=== PATIENT | male | born 1940 | race Caucasian/White ===

== ENCOUNTER 2017-09-21 08:42 | Emergency (ER) | payer MEDICARE, MEDICAID ==
[~2017-09-21] VITALS: Ht 177.8 cm; Wt 57.0 kg
[2017-09-21 10:38] VITALS: BP 127/78
== END 2017-09-21 11:18 | disposition home or self-care (01) ==
LOC: ED 10:13
DX: S92.354A Nondisplaced fracture of fifth metatarsal bone, right foot, initial encounter for closed fracture (principal); F17.200 Nicotine dependence, unspecified, uncomplicated; X58.XXXA Exposure to other specified factors, initial encounter; Y93.01 Activity, walking, marching and hiking; Y92.009 Unspecified place in unspecified non-institutional (private) residence as the place of occurrence of the external cause; Y99.8 Other external cause status
CPT/HCPCS: 99284

== ENCOUNTER 2018-03-01 08:48 | Inpatient (IN) | payer MEDICARE, MEDICAID ==
[~2018-03-01] VITALS: Ht 177.8 cm; Wt 53.1 kg
[2018-03-01] MEDS ORDERED: ASPIRIN 81 MG TABLET CHEW ONE (09:47)
[2018-03-01] MEDS ORDERED: HYDR1TAB12 PO (09:59)
[2018-03-01] MEDS ORDERED: MUSCLE RELAXER (09:59)
[2018-03-01] MEDS ORDERED: TRAZ50TA18 PO (09:59)
[2018-03-01 10:00] LABS: BASOPHILS % (AUTO) 0 % (0-1); EOSINOPHILS # (AUTO) 0.11 x10^3/uL (0-0.4); EOSINOPHILS % (AUTO) 2 % (1-7); LYMPHOCYTES # (AUTO) 0.73 x10^3/uL (1-3.4); LYMPHOCYTES % (AUTO) 12 % (22-44); MD NO; MEAN CORPUSCULAR HEMOGLOBIN 34.7 pg (27.5-34.5); MEAN PLATELET VOLUME 8.8 fL (7.4-10.4); MONOCYTES # (AUTO) 0.89 x10^3/uL (0.2-0.8); MONOCYTES % (AUTO) 15 % (2-9); NEUTROPHILS # (AUTO) 4.21 x10^3/uL (1.8-6.8); NEUTROPHILS % (AUTO) 71 % (42-75); PLATELET COUNT 204 x10^3/uL (130-400); RED BLOOD COUNT 4.13 x10^6/uL (4.38-5.82); RED CELL DISTRIBUTION WIDTH 14.1 % (9.4-14.8)
[2018-03-01] MEDS ORDERED: ASPIRIN 81 MG TABLET CHEW PO ONE (10:00)
[2018-03-01 10:08] LABS: ALBUMIN 3.1 g/dL (3.4-5.0); ANION GAP 4 mmol/L (5-15); CALCIUM 8.6 mg/dL (8.5-10.1); CHLORIDE 99 mmol/L (98-107)
[2018-03-01 10:14] LABS: ALANINE AMINOTRANSFERASE 26 U/L (12-78); ALKALINE PHOSPHATASE 101 U/L (45-117); BILIRUBIN,TOTAL 0.8 mg/dL (0.2-1.0); CREATININE 0.61 mg/dL (0.7-1.3); TOTAL PROTEIN 6.8 g/dL (6.4-8.2); TROPONIN I < 0.015 ng/mL (0.000-0.045)
[2018-03-01] MEDS ORDERED: ENOXAPARIN 60 MG/0.6 ML ONE (11:47)
[2018-03-01] MEDS ORDERED: ENOXAPARIN 60 MG/0.6 ML SQ ONE (12:00)
[2018-03-01] MEDS ORDERED: DILTIAZEM 5 MG/ML, 5ML IVPush ONE (12:30)
[2018-03-01] MEDS: ENOXAPARIN 60 MG/0.6 ML SQ SCH (12:30)
[2018-03-01] MEDS ORDERED: ONDANSETRON 2MG/ML, 2ML IVPB PRN (12:30)
[2018-03-01] MEDS ORDERED: CEFTRIAXONE PMX 1GM/50ML 50 ML IV SCH (12:30)
[2018-03-01] MEDS ORDERED: METHOCARBAMOL 500 MG TABLET PO PRN (12:30)
[2018-03-01] MEDS ORDERED: PHARMACY MAY ADJ FOR RENAL FX MC PRN (12:30)
[2018-03-01] MEDS ORDERED: HYDROcodone/APAP 5/325 TABLET PO PRN (12:30)
[2018-03-01] MEDS ORDERED: TRAZODONE 50MG TABLET PO PRN (12:30)
[2018-03-01] MEDS ORDERED: ACETAMINOPHEN 325 MG TABLET PO PRN (12:30)
[2018-03-01] MEDS ORDERED: FUROSEMIDE 20 MG/2 ML IV ONE (12:30)
[2018-03-01] MEDS ORDERED: DOCUSATE 100 MG CAPSULE PO PRN (12:30)
[2018-03-01] MEDS: GUAIFENESIN 200 MG TABLET PO SCH ×4 (12:30→21:00)
[2018-03-01 13:15] LABS: FOLATE LEVEL > 20.0 ng/mL (3.1-17.5)
[2018-03-01] MEDS ORDERED: MAGNESIUM SULFATE 4 GM in STERILE WATER 42 ML IV ONE ×2 (13:30)
[2018-03-01 13:48] VITALS: BP 138/79
[2018-03-01 14:49] LABS: AMPHETAMINE SCREEN, URINE Negative (Negative); BARBITURATE SCREEN, URINE Negative (Negative); BENZODIAZEPINE SCREEN, URINE Negative (Negative); CANNABINOID SCREEN, URINE Negative (Negative); COCAINE SCREEN, URINE Negative (Negative); METHADONE SCREEN, URINE Negative (Negative); OPIATE SCREEN, URINE Negative (Negative)
[2018-03-01] MEDS ORDERED: ALBUTEROL/IPRATROPIUM 2.5MG/0.5MG, 3 ML NPPB PRN (15:00)
[2018-03-01] MEDS ORDERED: FUROSEMIDE 20 MG/2 ML ONE (18:12)
[2018-03-01] MEDS: DOXYCYCLINE 100 MG in DEXTROSE 5% 250 ML IV SCH (18:23)
[2018-03-01 19:01] VITALS: BP 103/62
[2018-03-02] MEDS: ENOXAPARIN 60 MG/0.6 ML SQ SCH ×2 (00:17→12:30)
[2018-03-02 01:45] VITALS: BP 115/62
[2018-03-02 05:19] LABS: ALANINE AMINOTRANSFERASE 24 U/L (12-78); ALBUMIN 2.9 g/dL (3.4-5.0); ANION GAP 3 mmol/L (5-15); CALCIUM 8.6 mg/dL (8.5-10.1); CHLORIDE 99 mmol/L (98-107)
[2018-03-02 05:24] LABS: ALKALINE PHOSPHATASE 102 U/L (45-117); BILIRUBIN,TOTAL 0.5 mg/dL (0.2-1.0); TOTAL PROTEIN 6.5 g/dL (6.4-8.2)
[2018-03-02 05:27] LABS: BASOPHILS # (AUTO) 0.02 x10^3/uL (0-0.1); BASOPHILS % (AUTO) 0 % (0-1); EOSINOPHILS # (AUTO) 0.01 x10^3/uL (0-0.4); EOSINOPHILS % (AUTO) 0 % (1-7); LYMPHOCYTES # (AUTO) 0.85 x10^3/uL (1-3.4); LYMPHOCYTES % (AUTO) 9 % (22-44); MD NO; MEAN CORPUSCULAR HEMOGLOBIN 34.9 pg (27.5-34.5); MEAN CORPUSCULAR HGB CONC 33.4 g/dL (33.2-36.2); MEAN CORPUSCULAR VOLUME 104.5 fL (81-97); MEAN PLATELET VOLUME 9.1 fL (7.4-10.4); MONOCYTES # (AUTO) 1.27 x10^3/uL (0.2-0.8); MONOCYTES % (AUTO) 13 % (2-9); NEUTROPHILS # (AUTO) 7.59 x10^3/uL (1.8-6.8); NEUTROPHILS % (AUTO) 78 % (42-75); PLATELET COUNT 214 x10^3/uL (130-400); RED BLOOD COUNT 4.06 x10^6/uL (4.38-5.82); RED CELL DISTRIBUTION WIDTH 14.2 % (9.4-14.8)
[2018-03-02] MEDS: GUAIFENESIN 200 MG TABLET PO SCH ×2 (06:01→12:16)
[2018-03-02] MEDS: DOXYCYCLINE 100 MG in DEXTROSE 5% 250 ML IV SCH (06:01)
[2018-03-02 07:55] VITALS: BP 122/60
[2018-03-02] MEDS ORDERED: METH4TAB2 PO (09:57)
[2018-03-02] MEDS ORDERED: CEFD300C37 PO (09:57)
[2018-03-02] MEDS ORDERED: DOXY100T PO (09:57)
[2018-03-02] MEDS ORDERED: ALBU6.7H INH (09:57)
[2018-03-02] MEDS ORDERED: APIX5TAB PO (09:57)
[2018-03-02] MEDS ORDERED: PNEUMOCOCCAL 23 VACCINE IM-VACC ONE (13:00)
== END 2018-03-02 13:50 | disposition home or self-care (01) | DRG 291 ==
LOC: ED 10:26 → EDIP 11:24 → 4WST 12:26 → DCLOUNGE 03-02 13:31
PROVIDERS: ADMIT Internal Medicine; ATTEND Internal Medicine
DX: I50.33 Acute on chronic diastolic (congestive) heart failure (principal); J18.9 Pneumonia, unspecified organism; J44.1 Chronic obstructive pulmonary disease with (acute) exacerbation; D68.69 Other thrombophilia; E44.1 Mild protein-calorie malnutrition; E87.1 Hypo-osmolality and hyponatremia; J98.11 Atelectasis; J44.0 Chronic obstructive pulmonary disease with (acute) lower respiratory infection; I48.91 Unspecified atrial fibrillation; F17.210 Nicotine dependence, cigarettes, uncomplicated; D75.89 Other specified diseases of blood and blood-forming organs; F15.10 Other stimulant abuse, uncomplicated; I07.1 Rheumatic tricuspid insufficiency; Z79.82 Long term (current) use of aspirin; M19.90 Unspecified osteoarthritis, unspecified site; G89.29 Other chronic pain; M54.9 Dorsalgia, unspecified; Z79.899 Other long term (current) drug therapy
CPT/HCPCS: 36415; 71045; 80053; 80307; 82607; 82746; 83735; 83880; 84145; 84443; 84484; 85025; 87040; 87070; 87184; 87205; 90732; 93005; 93306; 96372; 99285; J0696; J1650; J3475; J7060; J1940; J7512

== ENCOUNTER 2018-03-17 19:37 | Inpatient (IN) | payer MEDICARE, MEDICAID ==
[~2018-03-17] VITALS: Ht 177.8 cm; Wt 52.3 kg
[~2018-03-17 19:37] MED LIST: ALBU6.7H INH; APIX5TAB PO; CEFD300C37 PO; DOXY100T PO; HYDR1TAB12 PO; METH4TAB2 PO; MUSCLE RELAXER; TRAZ50TA18 PO
[2018-03-17 20:24] LABS: MEAN CORPUSCULAR HEMOGLOBIN 35.3 pg (27.5-34.5); MEAN CORPUSCULAR HGB CONC 33.6 g/dL (33.2-36.2); MEAN CORPUSCULAR VOLUME 105.2 fL (81-97); MEAN PLATELET VOLUME 8.5 fL (7.4-10.4); PLATELET COUNT 248 x10^3/uL (130-400); RED BLOOD COUNT 3.94 x10^6/uL (4.38-5.82); RED CELL DISTRIBUTION WIDTH 14.4 % (9.4-14.8)
[2018-03-17] MEDS ORDERED: FUROSEMIDE 40 MG/4 ML IV ONE (20:30)
[2018-03-17 20:36] LABS: ALANINE AMINOTRANSFERASE 25 U/L (12-78); ALBUMIN 2.8 g/dL (3.4-5.0); ANION GAP 6 mmol/L (5-15); CALCIUM 8.6 mg/dL (8.5-10.1); CHLORIDE 98 mmol/L (98-107); CREATININE 0.82 mg/dL (0.7-1.3)
[2018-03-17 20:40] LABS: ALKALINE PHOSPHATASE 114 U/L (45-117); BILIRUBIN,TOTAL 0.9 mg/dL (0.2-1.0); TOTAL PROTEIN 6.7 g/dL (6.4-8.2); TROPONIN I < 0.015 ng/mL (0.000-0.045)
[2018-03-17 20:47] LABS: MD YES
[2018-03-17 20:51] LABS: EOS#(MANUAL) 0.08 x10^3/uL (0.0-0.4); EOS% (MANUAL) 1 % (1-7); LYMPH#(MANUAL) 0.34 x10^3/uL (1-3.4); LYMPHS% (MANUAL) 4 % (22-44); MONOS#(MANUAL) 1.43 x10^3/uL (0.3-2.7); MONOS% (MANUAL) 17 % (2-9); SEG#(MANUAL) 6.55 x10^3/uL (1.8-6.8); SEGS% (MANUAL) 78 % (42-75)
[2018-03-17 20:52] LABS: ANISOCYTOSIS 1+
[2018-03-17 20:54] LABS: <PLATELET ESTIMATE> ADEQUATE; <PLT MORPHOLOGY> NORMAL PLT MORPH
[2018-03-17] MEDS ORDERED: FUROSEMIDE 20 MG/2 ML ONE (20:55)
[2018-03-17] MEDS ORDERED: FUROSEMIDE 20 MG/2 ML IV ONE (21:00)
[2018-03-17] MEDS ORDERED: hydrALAzine 20 MG/ML, 1ML IVPush PRN (22:00)
[2018-03-17] MEDS ORDERED: ONDANSETRON 2MG/ML, 2ML IVPush PRN (22:00)
[2018-03-17] MEDS ORDERED: ALBUTEROL SULFATE 2.5 MG/3 ML HHN PRN (22:00)
[2018-03-17] MEDS ORDERED: ACETAMINOPHEN 325 MG TABLET PO PRN (22:00)
[2018-03-17 22:37] VITALS: BP 156/77
[2018-03-18 02:55] VITALS: BP 116/64
[2018-03-18 05:11] LABS: MEAN CORPUSCULAR HEMOGLOBIN 34.9 pg (27.5-34.5); MEAN CORPUSCULAR HGB CONC 33.2 g/dL (33.2-36.2); MEAN CORPUSCULAR VOLUME 105.2 fL (81-97); MEAN PLATELET VOLUME 8.6 fL (7.4-10.4); PLATELET COUNT 245 x10^3/uL (130-400); RED CELL DISTRIBUTION WIDTH 14.3 % (9.4-14.8)
[2018-03-18 05:24] LABS: ALANINE AMINOTRANSFERASE 24 U/L (12-78); ALBUMIN 2.9 g/dL (3.4-5.0); ANION GAP 5 mmol/L (5-15); CHLORIDE 96 mmol/L (98-107)
[2018-03-18 05:26] LABS: ALKALINE PHOSPHATASE 111 U/L (45-117); BILIRUBIN,TOTAL 1.1 mg/dL (0.2-1.0); TOTAL PROTEIN 6.6 g/dL (6.4-8.2)
[2018-03-18 05:52] LABS: MD YES
[2018-03-18 05:54] LABS: LYMPH#(MANUAL) 0.74 x10^3/uL (1-3.4); LYMPHS% (MANUAL) 8 % (22-44); MONOS#(MANUAL) 1.12 x10^3/uL (0.3-2.7); MONOS% (MANUAL) 12 % (2-9); SEG#(MANUAL) 7.44 x10^3/uL (1.8-6.8); SEGS% (MANUAL) 80 % (42-75)
[2018-03-18 05:55] LABS: <PLATELET ESTIMATE> ADEQUATE; <PLT MORPHOLOGY> NORMAL PLT MORPH; ANISOCYTOSIS 1+
[2018-03-18 08:20] VITALS: BP 113/67
[2018-03-18] MEDS ORDERED: APIXABAN 5 MG TABLET PO SCH (09:00)
[2018-03-18] MEDS ORDERED: HYDROcodone/APAP 5/325 TABLET PO SCH (09:00)
[2018-03-18] MEDS ORDERED: SODIUM CHLORIDE FLUSH 10ML SYR IVF SCH (09:00)
[2018-03-18] MEDS ORDERED: TRAZODONE 50MG TABLET PO SCH (09:00)
[2018-03-18] MEDS ORDERED: POTA10TA11 PO (09:49)
[2018-03-18] MEDS ORDERED: FURO-93 PO (09:49)
[2018-03-18] MEDS ORDERED: POTASSIUM CHLORIDE 20 MEQ TAB.ER.PRT PO ONE (10:00)
[2018-03-18] MEDS ORDERED: MAGNESIUM SULFATE PMX 2GM/50ML 50 ML IV ONE (10:00)
[2018-03-18] MEDS ORDERED: FUROSEMIDE 20 MG/2 ML IV ONE (10:00)
== END 2018-03-18 12:58 | disposition home or self-care (01) | DRG 292 ==
LOC: ED 20:20 → SUATTDRO 21:28 → EDIP 21:43 → 4EST 22:23 → DCLOUNGE 03-18 12:44
PROVIDERS: ADMIT Hospitalist; ATTEND Hospitalist
DX: I50.33 Acute on chronic diastolic (congestive) heart failure (principal); D68.69 Other thrombophilia; E44.1 Mild protein-calorie malnutrition; J98.11 Atelectasis; Z68.1 Body mass index [BMI] 19.9 or less, adult; I48.2 Chronic atrial fibrillation; E87.6 Hypokalemia; D75.89 Other specified diseases of blood and blood-forming organs; E83.42 Hypomagnesemia; F17.210 Nicotine dependence, cigarettes, uncomplicated; I07.1 Rheumatic tricuspid insufficiency; I27.20 Pulmonary hypertension, unspecified; J44.9 Chronic obstructive pulmonary disease, unspecified; Z87.01 Personal history of pneumonia (recurrent); Z79.01 Long term (current) use of anticoagulants; F15.11 Other stimulant abuse, in remission; F14.11 Cocaine abuse, in remission
CPT/HCPCS: 36415; 71045; 80053; 83735; 83880; 84100; 84484; 85025; 93005; 99285; J1940

== ENCOUNTER 2018-04-03 12:26 | Emergency (ER) | payer MEDICARE, MEDICAID ==
[~2018-04-03] VITALS: Ht 177.8 cm; Wt 53.0 kg
[~2018-04-03 12:26] MED LIST changes: +FURO-93 PO; +POTA10TA11 PO
[2018-04-03 12:33] VITALS: BP 130/76
== END 2018-04-03 13:08 | disposition home or self-care (01) ==
LOC: ED 12:55
DX: J44.9 Chronic obstructive pulmonary disease, unspecified (principal); I11.0 Hypertensive heart disease with heart failure; I50.9 Heart failure, unspecified; Z76.0 Encounter for issue of repeat prescription
CPT/HCPCS: 99283

== ENCOUNTER 2018-04-15 21:37 | Inpatient (IN) | payer MEDICARE, MEDICAID ==
[~2018-04-15] VITALS: Ht 177.8 cm; Wt 51.8 kg
[~2018-04-15 21:37] MED LIST changes: +TRAZ-136 PO; -TRAZ50TA18 PO
[2018-04-15 22:25] LABS: BASOPHILS # (AUTO) 0.02 x10^3/uL (0-0.1); BASOPHILS % (AUTO) 0 % (0-1); EOSINOPHILS # (AUTO) 0.06 x10^3/uL (0-0.4); EOSINOPHILS % (AUTO) 1 % (1-7); LYMPHOCYTES # (AUTO) 0.63 x10^3/uL (1-3.4); LYMPHOCYTES % (AUTO) 9 % (22-44); MD NO; MEAN CORPUSCULAR HEMOGLOBIN 34.8 pg (27.5-34.5); MEAN CORPUSCULAR HGB CONC 33.7 g/dL (33.2-36.2); MEAN CORPUSCULAR VOLUME 103.3 fL (81-97); MEAN PLATELET VOLUME 8.6 fL (7.4-10.4); MONOCYTES % (AUTO) 15 % (2-9); NEUTROPHILS # (AUTO) 4.99 x10^3/uL (1.8-6.8); NEUTROPHILS % (AUTO) 74 % (42-75); PLATELET COUNT 228 x10^3/uL (130-400); RED BLOOD COUNT 3.53 x10^6/uL (4.38-5.82); RED CELL DISTRIBUTION WIDTH 14.1 % (9.4-14.8)
[2018-04-15 22:34] LABS: ALBUMIN 2.4 g/dL (3.4-5.0); ANION GAP 4 mmol/L (5-15); CALCIUM 8.6 mg/dL (8.5-10.1); CHLORIDE 97 mmol/L (98-107)
[2018-04-15 22:39] LABS: CREATININE 0.77 mg/dL (0.7-1.3); TROPONIN I < 0.015 ng/mL (0.000-0.045)
[2018-04-16] MEDS ORDERED: FUROSEMIDE 40 MG/4 ML IV ONE
[2018-04-16] MEDS ORDERED: FUROSEMIDE 40 MG/4 ML ONE (00:01)
[2018-04-16] MEDS ORDERED: POLYETHYLENE GLYCOL 17 GM PACKET PO PRN (00:30)
[2018-04-16] MEDS ORDERED: ACETAMINOPHEN 325 MG TABLET PO PRN (00:30)
[2018-04-16] MEDS ORDERED: ONDANSETRON 2MG/ML, 2ML IVPush PRN ×2 (00:30)
[2018-04-16] MEDS ORDERED: ALBUTEROL SULFATE 2.5 MG/3 ML IPPB PRN (00:30)
[2018-04-16] MEDS ORDERED: BISACODYL 10 MG SUPP PR PRN (00:30)
[2018-04-16 00:50] VITALS: BP 144/81
[2018-04-16] MEDS: NICOTINE 21 MG/24 HR PATCH.TD24 TD SCH ×2 (01:28→20:10)
[2018-04-16] MEDS: ALBUTEROL SULFATE 2.5 MG/3 ML NPPB PRN (03:05)
[2018-04-16 05:51] LABS: BASOPHILS # (AUTO) 0.01 x10^3/uL (0-0.1); BASOPHILS % (AUTO) 0 % (0-1); EOSINOPHILS # (AUTO) 0.05 x10^3/uL (0-0.4); EOSINOPHILS % (AUTO) 1 % (1-7); LYMPHOCYTES # (AUTO) 0.66 x10^3/uL (1-3.4); LYMPHOCYTES % (AUTO) 9 % (22-44); MD NO; MEAN CORPUSCULAR HEMOGLOBIN 34.8 pg (27.5-34.5); MEAN CORPUSCULAR HGB CONC 33.5 g/dL (33.2-36.2); MEAN CORPUSCULAR VOLUME 103.9 fL (81-97); MEAN PLATELET VOLUME 9.1 fL (7.4-10.4); MONOCYTES # (AUTO) 1.12 x10^3/uL (0.2-0.8); MONOCYTES % (AUTO) 16 % (2-9); NEUTROPHILS # (AUTO) 5.34 x10^3/uL (1.8-6.8); NEUTROPHILS % (AUTO) 74 % (42-75); PLATELET COUNT 254 x10^3/uL (130-400); RED BLOOD COUNT 3.88 x10^6/uL (4.38-5.82); RED CELL DISTRIBUTION WIDTH 14.1 % (9.4-14.8)
[2018-04-16] MEDS: HYDROcodone/APAP 5/325 TABLET PO PRN ×2 (05:58→14:36)
[2018-04-16 06:01] LABS: ALBUMIN 2.5 g/dL (3.4-5.0); ANION GAP 4 mmol/L (5-15); CALCIUM 8.7 mg/dL (8.5-10.1); CHLORIDE 97 mmol/L (98-107)
[2018-04-16 06:07] LABS: ALANINE AMINOTRANSFERASE 19 U/L (12-78); ALKALINE PHOSPHATASE 95 U/L (45-117); BILIRUBIN,TOTAL 0.7 mg/dL (0.2-1.0); CREATININE 0.81 mg/dL (0.7-1.3)
[2018-04-16] MEDS ORDERED: POTASSIUM CHLORIDE 20 MEQ TAB.ER.PRT PO ONE (07:30)
[2018-04-16 07:37] VITALS: BP 92/58
[2018-04-16] MEDS: TRAZODONE 50MG TABLET PO SCH (08:15)
[2018-04-16] MEDS: FUROSEMIDE 20 MG/2 ML IV SCH ×2 (08:15→17:49)
[2018-04-16] MEDS: SENNA/DOCUSATE TABLET PO SCH (08:15)
[2018-04-16] MEDS: APIXABAN 5 MG TABLET PO SCH ×2 (08:15→20:09)
[2018-04-16] MEDS: SODIUM CHLORIDE FLUSH 10ML SYR IVF SCH ×2 (08:16→20:09)
[2018-04-16] MEDS: LISINOPRIL 5 MG TABLET PO SCH (08:16)
[2018-04-16] MEDS ORDERED: POTASSIUM CHLORIDE 10 MEQ TABLET.ER PO SCH (09:00)
[2018-04-16 13:24] VITALS: BP 95/56
[2018-04-16] MEDS ORDERED: TIZANIDINE 4MG TABLET PO PRN (19:00)
[2018-04-16 19:58] VITALS: BP 99/64
[2018-04-17 01:00] VITALS: BP 97/58
[2018-04-17 05:17] LABS: BASOPHILS # (AUTO) 0.02 x10^3/uL (0-0.1); BASOPHILS % (AUTO) 0 % (0-1); EOSINOPHILS # (AUTO) 0.09 x10^3/uL (0-0.4); EOSINOPHILS % (AUTO) 1 % (1-7); LYMPHOCYTES # (AUTO) 0.55 x10^3/uL (1-3.4); LYMPHOCYTES % (AUTO) 7 % (22-44); MD NO; MEAN CORPUSCULAR HEMOGLOBIN 34.9 pg (27.5-34.5); MEAN CORPUSCULAR HGB CONC 33.3 g/dL (33.2-36.2); MEAN CORPUSCULAR VOLUME 104.8 fL (81-97); MEAN PLATELET VOLUME 8.8 fL (7.4-10.4); MONOCYTES # (AUTO) 0.81 x10^3/uL (0.2-0.8); MONOCYTES % (AUTO) 11 % (2-9); NEUTROPHILS # (AUTO) 5.87 x10^3/uL (1.8-6.8); NEUTROPHILS % (AUTO) 80 % (42-75); PLATELET COUNT 242 x10^3/uL (130-400); RED BLOOD COUNT 3.82 x10^6/uL (4.38-5.82); RED CELL DISTRIBUTION WIDTH 14.1 % (9.4-14.8)
[2018-04-17 05:25] LABS: CHLORIDE 97 mmol/L (98-107)
[2018-04-17 05:29] LABS: ALBUMIN 2.4 g/dL (3.4-5.0); ANION GAP 3 mmol/L (5-15); CALCIUM 8.8 mg/dL (8.5-10.1); CREATININE 0.57 mg/dL (0.7-1.3)
[2018-04-17 07:45] VITALS: BP 114/65
[2018-04-17 08:36] LABS: FOLATE LEVEL 13.9 ng/mL (3.1-17.5); THYROID STIMULATING HORMONE 1.24 mIU/L (0.358-3.740)
[2018-04-17] MEDS ORDERED: FUROSEMIDE 20 MG/2 ML IV SCH (09:00)
[2018-04-17] MEDS: SODIUM CHLORIDE FLUSH 10ML SYR IVF SCH ×2 (09:00→22:44)
[2018-04-17] MEDS ORDERED: CYANOCOBALAMIN 1,000 MCG/ML, 1ML IM ONE (11:00)
[2018-04-17] MEDS: APIXABAN 5 MG TABLET PO SCH ×2 (11:19→22:44)
[2018-04-17] MEDS: LISINOPRIL 5 MG TABLET PO SCH (11:20)
[2018-04-17] MEDS: DOXYCYCLINE 100MG TABLET PO SCH ×2 (11:20→22:44)
[2018-04-17] MEDS: SENNA/DOCUSATE TABLET PO SCH (11:20)
[2018-04-17] MEDS: CEFTRIAXONE 1,000 MG in SODIUM CHLORIDE 0.9% 50 ML IV SCH (11:39)
[2018-04-17 13:57] VITALS: BP 104/62
[2018-04-17 20:19] VITALS: BP 96/59
[2018-04-17] MEDS: TRAZODONE 50MG TABLET PO SCH (22:44)
[2018-04-17] MEDS: NICOTINE 21 MG/24 HR PATCH.TD24 TD SCH (22:50)
[2018-04-18 00:26] VITALS: BP_SYST 79; BP_SYST 94; BP_DIAS 53; BP_DIAS 61
[2018-04-18 00:37] VITALS: BP 93/49
[2018-04-18] MEDS: ALBUTEROL SULFATE 2.5 MG/3 ML NPPB PRN (01:26)
[2018-04-18 05:14] LABS: ALBUMIN 2.3 g/dL (3.4-5.0); ANION GAP 1 mmol/L (5-15); CALCIUM 8.7 mg/dL (8.5-10.1); CHLORIDE 98 mmol/L (98-107); CREATININE 0.59 mg/dL (0.7-1.3)
[2018-04-18 05:21] LABS: BASOPHILS # (AUTO) 0.07 x10^3/uL (0-0.1); BASOPHILS % (AUTO) 1 % (0-1); EOSINOPHILS # (AUTO) 0.08 x10^3/uL (0-0.4); EOSINOPHILS % (AUTO) 1 % (1-7); LYMPHOCYTES # (AUTO) 0.67 x10^3/uL (1-3.4); LYMPHOCYTES % (AUTO) 11 % (22-44); MD NO; MEAN CORPUSCULAR HEMOGLOBIN 34.2 pg (27.5-34.5); MEAN CORPUSCULAR HGB CONC 32.8 g/dL (33.2-36.2); MEAN PLATELET VOLUME 8.8 fL (7.4-10.4); MONOCYTES # (AUTO) 1.04 x10^3/uL (0.2-0.8); MONOCYTES % (AUTO) 17 % (2-9); NEUTROPHILS # (AUTO) 4.47 x10^3/uL (1.8-6.8); NEUTROPHILS % (AUTO) 71 % (42-75); PLATELET COUNT 216 x10^3/uL (130-400); RED BLOOD COUNT 3.53 x10^6/uL (4.38-5.82); RED CELL DISTRIBUTION WIDTH 14.1 % (9.4-14.8)
[2018-04-18 06:43] VITALS: BP 99/58
[2018-04-18] MEDS ORDERED: MAGNESIUM SULFATE PMX 2GM/50ML 50 ML IV ONE (07:30)
[2018-04-18] MEDS: CEFTRIAXONE 1,000 MG in SODIUM CHLORIDE 0.9% 50 ML IV SCH (07:47)
[2018-04-18] MEDS: DOXYCYCLINE 100MG TABLET PO SCH ×2 (07:50→22:23)
[2018-04-18] MEDS: SENNA/DOCUSATE TABLET PO SCH (07:50)
[2018-04-18] MEDS: SODIUM CHLORIDE FLUSH 10ML SYR IVF SCH ×2 (07:51→22:24)
[2018-04-18] MEDS: LISINOPRIL 5 MG TABLET PO SCH (07:51)
[2018-04-18] MEDS: APIXABAN 5 MG TABLET PO SCH ×2 (07:51→22:23)
[2018-04-18] MEDS: NEUTRA PHOS K 250 MG TABLET PO SCH ×2 (08:42→22:23)
[2018-04-18] MEDS: FUROSEMIDE 20 MG/2 ML IV SCH ×2 (08:43→17:40)
[2018-04-18 14:11] VITALS: BP 121/76
[2018-04-18 20:17] VITALS: BP 131/79
[2018-04-18] MEDS ORDERED: TRAZODONE 50MG TABLET PO SCH (21:00)
[2018-04-18] MEDS: NICOTINE 21 MG/24 HR PATCH.TD24 TD SCH (22:22)
[2018-04-19 01:49] VITALS: BP 104/60
[2018-04-19 05:35] LABS: BASOPHILS # (AUTO) 0.04 x10^3/uL (0-0.1); BASOPHILS % (AUTO) 1 % (0-1); EOSINOPHILS # (AUTO) 0.07 x10^3/uL (0-0.4); EOSINOPHILS % (AUTO) 1 % (1-7); LYMPHOCYTES # (AUTO) 0.62 x10^3/uL (1-3.4); LYMPHOCYTES % (AUTO) 8 % (22-44); MD NO; MEAN CORPUSCULAR HEMOGLOBIN 35.1 pg (27.5-34.5); MEAN CORPUSCULAR HGB CONC 33.5 g/dL (33.2-36.2); MEAN CORPUSCULAR VOLUME 104.7 fL (81-97); MEAN PLATELET VOLUME 8.6 fL (7.4-10.4); MONOCYTES # (AUTO) 1.21 x10^3/uL (0.2-0.8); MONOCYTES % (AUTO) 15 % (2-9); NEUTROPHILS # (AUTO) 5.96 x10^3/uL (1.8-6.8); NEUTROPHILS % (AUTO) 76 % (42-75); PLATELET COUNT 246 x10^3/uL (130-400); RED BLOOD COUNT 3.57 x10^6/uL (4.38-5.82); RED CELL DISTRIBUTION WIDTH 13.9 % (9.4-14.8)
[2018-04-19 05:38] LABS: ALBUMIN 2.2 g/dL (3.4-5.0); ANION GAP 2 mmol/L (5-15); CALCIUM 8.9 mg/dL (8.5-10.1); CHLORIDE 98 mmol/L (98-107); CREATININE 0.71 mg/dL (0.7-1.3)
[2018-04-19 07:04] VITALS: BP 103/59
[2018-04-19] MEDS: CEFTRIAXONE 1,000 MG in SODIUM CHLORIDE 0.9% 50 ML IV SCH (07:24)
[2018-04-19] MEDS ORDERED: POTASSIUM CHLORIDE 20 MEQ TAB.ER.PRT PO ONE (08:00)
[2018-04-19] MEDS: FUROSEMIDE 20 MG/2 ML IV SCH (09:01)
[2018-04-19] MEDS: SENNA/DOCUSATE TABLET PO SCH (09:02)
[2018-04-19] MEDS: APIXABAN 5 MG TABLET PO SCH (09:02)
[2018-04-19] MEDS: SODIUM CHLORIDE FLUSH 10ML SYR IVF SCH (09:02)
[2018-04-19] MEDS: DOXYCYCLINE 100MG TABLET PO SCH (09:02)
[2018-04-19] MEDS: LISINOPRIL 5 MG TABLET PO SCH (09:02)
[2018-04-19] MEDS ORDERED: CEFD300C37 PO (09:04)
[2018-04-19] MEDS ORDERED: DOXY100T PO (09:05)
[2018-04-19] MEDS ORDERED: LISI5TAB7 PO (09:05)
[2018-04-19] MEDS ORDERED: CARV3.1212 PO (09:06)
[2018-04-19] MEDS ORDERED: ASPI-621 PO (09:06)
[2018-04-19] MEDS ORDERED: ATOR20TA9 PO (09:06)
[2018-04-19] MEDS ORDERED: FURO-93 PO (09:07)
== END 2018-04-19 13:37 | disposition home or self-care (01) | DRG 291 ==
LOC: ED 23:16 → EDIP 23:36 → 5SO 04-16 00:11
PROVIDERS: ADMIT Family Medicine; ATTEND Family Medicine
DX: I11.0 Hypertensive heart disease with heart failure (principal); J96.01 Acute respiratory failure with hypoxia; E43 Unspecified severe protein-calorie malnutrition; J18.9 Pneumonia, unspecified organism; D68.69 Other thrombophilia; E87.3 Alkalosis; E87.1 Hypo-osmolality and hyponatremia; J44.0 Chronic obstructive pulmonary disease with (acute) lower respiratory infection; J44.1 Chronic obstructive pulmonary disease with (acute) exacerbation; Z68.1 Body mass index [BMI] 19.9 or less, adult; M54.9 Dorsalgia, unspecified; G89.29 Other chronic pain; M19.90 Unspecified osteoarthritis, unspecified site; I50.43 Acute on chronic combined systolic (congestive) and diastolic (congestive) heart failure; I27.20 Pulmonary hypertension, unspecified; F17.200 Nicotine dependence, unspecified, uncomplicated; D50.9 Iron deficiency anemia, unspecified; I48.2 Chronic atrial fibrillation; Z82.49 Family history of ischemic heart disease and other diseases of the circulatory system; Z79.899 Other long term (current) drug therapy
CPT/HCPCS: 36415; 71045; 80048; 80053; 82040; 82607; 82746; 83735; 83880; 84100; 84443; 84484; 85025; 87070; 87077; 87205; 93005; 94640; 99291; J0696; J1940; J7613; J3420; J3475

== ENCOUNTER 2018-04-19 22:03 | Inpatient (IN) | payer MEDICARE, MEDICAID ==
[~2018-04-19] VITALS: Ht 177.8 cm; Wt 44.8 kg
[~2018-04-19 22:03] MED LIST changes: +ASPI-621 PO; +ATOR20TA9 PO; +CARV3.1212 PO; +LISI5TAB7 PO
[2018-04-19] MEDS ORDERED: SODIUM CHLORIDE FLUSH 10ML SYR IVF ONE (22:30)
[2018-04-19] MEDS ORDERED: ALBUTEROL/IPRATROPIUM 2.5MG/0.5MG, 3 ML ONE (22:38)
[2018-04-19 22:43] LABS: BASOPHILS # (AUTO) 0.02 x10^3/uL (0-0.1); BASOPHILS % (AUTO) 0 % (0-1); EOSINOPHILS # (AUTO) 0.06 x10^3/uL (0-0.4); EOSINOPHILS % (AUTO) 1 % (1-7); LYMPHOCYTES # (AUTO) 0.91 x10^3/uL (1-3.4); LYMPHOCYTES % (AUTO) 13 % (22-44); MD NO; MEAN CORPUSCULAR HEMOGLOBIN 34.3 pg (27.5-34.5); MEAN CORPUSCULAR VOLUME 104.2 fL (81-97); MEAN PLATELET VOLUME 8.5 fL (7.4-10.4); MONOCYTES # (AUTO) 0.88 x10^3/uL (0.2-0.8); MONOCYTES % (AUTO) 13 % (2-9); NEUTROPHILS # (AUTO) 4.97 x10^3/uL (1.8-6.8); NEUTROPHILS % (AUTO) 73 % (42-75); PLATELET COUNT 269 x10^3/uL (130-400); RED BLOOD COUNT 3.91 x10^6/uL (4.38-5.82); RED CELL DISTRIBUTION WIDTH 13.9 % (9.4-14.8)
[2018-04-19 22:55] LABS: ALBUMIN 2.7 g/dL (3.4-5.0); ANION GAP 3 mmol/L (5-15); CALCIUM 9.3 mg/dL (8.5-10.1); CHLORIDE 93 mmol/L (98-107); CREATININE 1.17 mg/dL (0.7-1.3)
[2018-04-19 22:59] LABS: TROPONIN I < 0.015 ng/mL (0.000-0.045)
[2018-04-19] MEDS ORDERED: PLEASE ENTER HEIGHT AND WEIGHT MC SCH (23:00)
[2018-04-19] MEDS: ALBUTEROL/IPRATROPIUM 2.5MG/0.5MG, 3 ML NPPB SCH ×2 (23:19→23:25)
[2018-04-20] VITALS (9 sets, daily range): BP systolic 96–118; BP diastolic 48–69
[2018-04-20] MEDS: FUROSEMIDE 40 MG/4 ML IV SCH (08:39)
[2018-04-20] MEDS: POTASSIUM CHLORIDE 10 MEQ TABLET.ER PO SCH (08:39)
[2018-04-20] MEDS: CEFDINIR 300 MG CAPSULE PO SCH ×2 (08:39→21:08)
[2018-04-20] MEDS: DOXYCYCLINE 100MG TABLET PO SCH ×2 (08:39→21:08)
[2018-04-20] MEDS: ACETAMINOPHEN PO SCH (08:40)
[2018-04-20] MEDS: [UNRECOGNIZED DRUG - OTHER] PO SCH (08:40)
[2018-04-20] MEDS: HYDROCODONE BIT PO SCH (08:40)
[2018-04-20] MEDS: ASPIRIN 81 MG TABLET EC PO SCH (08:40)
[2018-04-20] MEDS: LISINOPRIL 5 MG TABLET PO SCH (08:42)
[2018-04-20] MEDS: CARVEDILOL 3.125 MG TABLET PO SCH ×2 (08:42→21:00)
[2018-04-20] MEDS ORDERED: APIXABAN 5 MG TABLET PO SCH (09:00)
[2018-04-20] MEDS ORDERED: TRAZODONE 50MG TABLET PO SCH ×2 (09:00→21:00)
[2018-04-20] MEDS ORDERED: ONDANSETRON 2MG/ML, 2ML IVPush ONE (15:00)
[2018-04-20] MEDS ORDERED: ATORVASTATIN 20 MG TABLET PO SCH (21:00)
[2018-04-21 01:20] VITALS: BP 103/58
[2018-04-21 05:16] LABS: BASOPHILS # (AUTO) 0.05 x10^3/uL (0-0.1); BASOPHILS % (AUTO) 1 % (0-1); EOSINOPHILS # (AUTO) 0.03 x10^3/uL (0-0.4); EOSINOPHILS % (AUTO) 1 % (1-7); LYMPHOCYTES # (AUTO) 0.94 x10^3/uL (1-3.4); LYMPHOCYTES % (AUTO) 13 % (22-44); MD NO; MEAN CORPUSCULAR HGB CONC 33.5 g/dL (33.2-36.2); MEAN CORPUSCULAR VOLUME 104.5 fL (81-97); MEAN PLATELET VOLUME 8.5 fL (7.4-10.4); MONOCYTES # (AUTO) 0.88 x10^3/uL (0.2-0.8); MONOCYTES % (AUTO) 12 % (2-9); NEUTROPHILS # (AUTO) 5.17 x10^3/uL (1.8-6.8); NEUTROPHILS % (AUTO) 73 % (42-75); PLATELET COUNT 253 x10^3/uL (130-400); RED BLOOD COUNT 3.43 x10^6/uL (4.38-5.82); RED CELL DISTRIBUTION WIDTH 14.3 % (9.4-14.8)
[2018-04-21 05:28] LABS: CALCIUM 8.8 mg/dL (8.5-10.1); CREATININE 0.62 mg/dL (0.7-1.3)
[2018-04-21 05:48] LABS: CHLORIDE 98 mmol/L (98-107)
[2018-04-21 05:49] LABS: ANION GAP 2 mmol/L (5-15)
[2018-04-21 08:48] VITALS: BP 129/77
[2018-04-21] MEDS: [UNRECOGNIZED DRUG - OTHER] PO SCH (09:00)
[2018-04-21] MEDS: DOXYCYCLINE 100MG TABLET PO SCH (09:00)
[2018-04-21] MEDS: CARVEDILOL 3.125 MG TABLET PO SCH (09:00)
[2018-04-21] MEDS: CEFDINIR 300 MG CAPSULE PO SCH (09:00)
[2018-04-21] MEDS: HYDROCODONE BIT PO SCH (09:00)
[2018-04-21] MEDS: FUROSEMIDE 40 MG/4 ML IV SCH (09:00)
[2018-04-21] MEDS: LISINOPRIL 5 MG TABLET PO SCH (09:00)
[2018-04-21] MEDS: POTASSIUM CHLORIDE 10 MEQ TABLET.ER PO SCH (09:00)
[2018-04-21] MEDS: ACETAMINOPHEN PO SCH (09:00)
[2018-04-21] MEDS: ASPIRIN 81 MG TABLET EC PO SCH (09:00)
== END 2018-04-21 12:07 | disposition left against medical advice (07) | DRG 193 ==
LOC: ED 22:44 → 4WST 23:20
PROVIDERS: ADMIT Internal Medicine; ATTEND Internal Medicine
DX: J18.9 Pneumonia, unspecified organism (principal); J96.01 Acute respiratory failure with hypoxia; E43 Unspecified severe protein-calorie malnutrition; E87.1 Hypo-osmolality and hyponatremia; E87.3 Alkalosis; D68.59 Other primary thrombophilia; J44.0 Chronic obstructive pulmonary disease with (acute) lower respiratory infection; J44.1 Chronic obstructive pulmonary disease with (acute) exacerbation; Z68.1 Body mass index [BMI] 19.9 or less, adult; I50.32 Chronic diastolic (congestive) heart failure; I11.0 Hypertensive heart disease with heart failure; D50.9 Iron deficiency anemia, unspecified; I27.20 Pulmonary hypertension, unspecified; I48.2 Chronic atrial fibrillation; Z72.0 Tobacco use; Z79.01 Long term (current) use of anticoagulants; Z82.49 Family history of ischemic heart disease and other diseases of the circulatory system; Z53.21 Procedure and treatment not carried out due to patient leaving prior to being seen by health care provider
CPT/HCPCS: 36415; 71045; 80048; 82040; 83735; 84100; 84484; 85025; 93005; 99285; J1940; J2405; J7620; J7512

== ENCOUNTER 2018-04-22 04:12 | Inpatient (IN) | payer MEDICARE, MEDICAID ==
[~2018-04-22] VITALS: Ht 152.4 cm; Wt 51.7 kg
[2018-04-22] MEDS ORDERED: ALBUTEROL/IPRATROPIUM 2.5MG/0.5MG, 3 ML ONE (05:27)
[2018-04-22] MEDS ORDERED: SODIUM CHLORIDE FLUSH 10ML SYR IVF ONE (05:30)
[2018-04-22] MEDS ORDERED: ALBUTEROL/IPRATROPIUM 2.5MG/0.5MG, 3 ML NPPB PRN (05:30)
[2018-04-22 05:57] LABS: BASOPHILS # (AUTO) 0.02 x10^3/uL (0-0.1); BASOPHILS % (AUTO) 0 % (0-1); EOSINOPHILS # (AUTO) 0.03 x10^3/uL (0-0.4); EOSINOPHILS % (AUTO) 1 % (1-7); LYMPHOCYTES % (AUTO) 15 % (22-44); MD NO; MEAN CORPUSCULAR HEMOGLOBIN 34.3 pg (27.5-34.5); MEAN PLATELET VOLUME 8.5 fL (7.4-10.4); MONOCYTES # (AUTO) 0.76 x10^3/uL (0.2-0.8); MONOCYTES % (AUTO) 13 % (2-9); NEUTROPHILS # (AUTO) 4.15 x10^3/uL (1.8-6.8); NEUTROPHILS % (AUTO) 71 % (42-75); PLATELET COUNT 277 x10^3/uL (130-400); RED BLOOD COUNT 3.79 x10^6/uL (4.38-5.82); RED CELL DISTRIBUTION WIDTH 13.6 % (9.4-14.8)
[2018-04-22 06:10] LABS: ALBUMIN 2.8 g/dL (3.4-5.0); ANION GAP 5 mmol/L (5-15); CALCIUM 9.1 mg/dL (8.5-10.1); CHLORIDE 93 mmol/L (98-107)
[2018-04-22 06:15] LABS: ALANINE AMINOTRANSFERASE 24 U/L (12-78); ALKALINE PHOSPHATASE 78 U/L (45-117); BILIRUBIN,TOTAL 0.4 mg/dL (0.2-1.0); CREATININE 0.85 mg/dL (0.7-1.3); TOTAL PROTEIN 7.3 g/dL (6.4-8.2)
[2018-04-22] MEDS ORDERED: FUROSEMIDE 40 MG/4 ML IV ONE (07:30)
[2018-04-22] MEDS ORDERED: FUROSEMIDE 20 MG/2 ML ONE (07:44)
[2018-04-22] MEDS ORDERED: SODIUM CHLORIDE FLUSH 10ML SYR IVF PRN (09:30)
[2018-04-22 10:42] VITALS: BP 161/93
[2018-04-22] MEDS ORDERED: TEMPLATE NON-FORMULARY MED. (Albuterol Sulfate (Proventil Hfa) 2 PUFFS) INH PRN (12:30)
[2018-04-22] MEDS ORDERED: morphine SULFATE 10 MG/ML, 1ML IVPush PRN (12:30)
[2018-04-22] MEDS ORDERED: DOCUSATE 100 MG CAPSULE PO PRN (12:30)
[2018-04-22] MEDS ORDERED: HYDROcodone/APAP 5/325 TABLET PO SCH (12:30)
[2018-04-22] MEDS ORDERED: ONDANSETRON 2MG/ML, 2ML IVPush PRN (12:30)
[2018-04-22] MEDS ORDERED: GUAIFENESIN/COD200MG-20MG/10ML LIQUID PO PRN (12:30)
[2018-04-22] MEDS ORDERED: hydrALAzine 20 MG/ML, 1ML IVPush PRN (12:30)
[2018-04-22] MEDS ORDERED: ACETAMINOPHEN 325 MG TABLET PO PRN (12:30)
[2018-04-22 13:04] VITALS: BP 115/72
[2018-04-22] MEDS: LISINOPRIL 5 MG TABLET PO SCH (15:49)
[2018-04-22] MEDS: POTASSIUM CHLORIDE 10 MEQ TABLET.ER PO SCH (15:50)
[2018-04-22] MEDS: TRAZODONE 50MG TABLET PO SCH (15:50)
[2018-04-22] MEDS: ENOXAPARIN 40 MG/0.4 ML SQ SCH (15:54)
[2018-04-22] MEDS: FUROSEMIDE 40 MG/4 ML IV SCH (17:28)
[2018-04-22 19:41] VITALS: BP 107/66
[2018-04-22] MEDS: ATORVASTATIN 20 MG TABLET PO SCH (19:54)
[2018-04-22] MEDS: CARVEDILOL 3.125 MG TABLET PO SCH (19:54)
[2018-04-22] MEDS ORDERED: HYDROcodone/APAP 5/325 TABLET PO PRN (22:00)
[2018-04-23] VITALS (16 sets, daily range): BP systolic 75–126; BP diastolic 48–74
[2018-04-23 06:47] LABS: BASOPHILS # (AUTO) 0.04 x10^3/uL (0-0.1); BASOPHILS % (AUTO) 1 % (0-1); EOSINOPHILS # (AUTO) 0.02 x10^3/uL (0-0.4); EOSINOPHILS % (AUTO) 0 % (1-7); LYMPHOCYTES # (AUTO) 1.11 x10^3/uL (1-3.4); LYMPHOCYTES % (AUTO) 18 % (22-44); MD NO; MEAN CORPUSCULAR HEMOGLOBIN 34.1 pg (27.5-34.5); MEAN CORPUSCULAR HGB CONC 33.1 g/dL (33.2-36.2); MEAN CORPUSCULAR VOLUME 102.8 fL (81-97); MEAN PLATELET VOLUME 8.7 fL (7.4-10.4); MONOCYTES # (AUTO) 0.96 x10^3/uL (0.2-0.8); MONOCYTES % (AUTO) 16 % (2-9); NEUTROPHILS # (AUTO) 4.07 x10^3/uL (1.8-6.8); NEUTROPHILS % (AUTO) 66 % (42-75); PLATELET COUNT 283 x10^3/uL (130-400); RED BLOOD COUNT 3.73 x10^6/uL (4.38-5.82); RED CELL DISTRIBUTION WIDTH 13.6 % (9.4-14.8)
[2018-04-23 06:55] LABS: ANION GAP 4 mmol/L (5-15); CALCIUM 8.5 mg/dL (8.5-10.1); CHLORIDE 96 mmol/L (98-107); CREATININE 0.77 mg/dL (0.7-1.3)
[2018-04-23] MEDS: ASPIRIN 81 MG TABLET EC PO SCH (08:28)
[2018-04-23] MEDS: POTASSIUM CHLORIDE 10 MEQ TABLET.ER PO SCH (08:28)
[2018-04-23] MEDS: CARVEDILOL 3.125 MG TABLET PO SCH ×3 (08:28→20:45)
[2018-04-23] MEDS: TRAZODONE 50MG TABLET PO SCH (08:28)
[2018-04-23] MEDS: LISINOPRIL 5 MG TABLET PO SCH (08:29)
[2018-04-23] MEDS: FUROSEMIDE 40 MG/4 ML IV SCH (08:29)
[2018-04-23] MEDS ORDERED: MAGNESIUM SULFATE PMX 2GM/50ML 50 ML IV ONE (08:30)
[2018-04-23] MEDS ORDERED: LIDOCAINE-MPF 2%, 2ML ONE (12:24)
[2018-04-23] MEDS: ENOXAPARIN 40 MG/0.4 ML SQ SCH (12:30)
[2018-04-23] MEDS ORDERED: SODIUM CHLORIDE 0.9%, 500ML IVBOLUS ONE (14:45)
[2018-04-23] MEDS ORDERED: SODIUM CHLORIDE 0.9% 1,000ML IVBOLUS ONE (17:40)
[2018-04-23] MEDS: ATORVASTATIN 20 MG TABLET PO SCH ×2 (20:45→20:47)
[2018-04-24] VITALS (10 sets, daily range): BP systolic 67–132; BP diastolic 30–78
[2018-04-24 05:49] LABS: CHLORIDE 100 mmol/L (98-107)
[2018-04-24 05:58] LABS: ANION GAP 5 mmol/L (5-15); CALCIUM 8.7 mg/dL (8.5-10.1); CREATININE 0.68 mg/dL (0.7-1.3)
[2018-04-24] MEDS: ASPIRIN 81 MG TABLET EC PO SCH (09:09)
[2018-04-24] MEDS: TRAZODONE 50MG TABLET PO SCH (09:09)
[2018-04-24] MEDS: LISINOPRIL 5 MG TABLET PO SCH (09:10)
[2018-04-24] MEDS: POTASSIUM CHLORIDE 10 MEQ TABLET.ER PO SCH (09:11)
[2018-04-24] MEDS: CARVEDILOL 3.125 MG TABLET PO SCH ×2 (09:11→20:15)
[2018-04-24] MEDS: ENOXAPARIN 40 MG/0.4 ML SQ SCH (12:30)
[2018-04-24] MEDS: ATORVASTATIN 20 MG TABLET PO SCH (20:22)
[2018-04-24] MEDS: APIXABAN 5 MG TABLET PO SCH (20:22)
[2018-04-25] VITALS (9 sets, daily range): BP systolic 75–111; BP diastolic 41–66
[2018-04-25 05:30] LABS: CHLORIDE 104 mmol/L (98-107)
[2018-04-25 05:34] LABS: ANION GAP 3 mmol/L (5-15); CALCIUM 8.2 mg/dL (8.5-10.1); CREATININE 0.58 mg/dL (0.7-1.3)
[2018-04-25] MEDS: TRAZODONE 50MG TABLET PO SCH ×2 (09:00→20:41)
[2018-04-25] MEDS: LISINOPRIL 5 MG TABLET PO SCH ×3 (09:00→17:11)
[2018-04-25] MEDS ORDERED: FUROSEMIDE 20 MG/2 ML IV SCH ×2 (09:00)
[2018-04-25] MEDS: APIXABAN 5 MG TABLET PO SCH ×2 (10:28→20:40)
[2018-04-25] MEDS: ASPIRIN 81 MG TABLET EC PO SCH (10:28)
[2018-04-25] MEDS: POTASSIUM CHLORIDE 10 MEQ TABLET.ER PO SCH (10:28)
[2018-04-25] MEDS: CARVEDILOL 3.125 MG TABLET PO SCH ×2 (12:32→21:00)
[2018-04-25] MEDS: ATORVASTATIN 20 MG TABLET PO SCH (20:41)
[2018-04-26 00:57] VITALS: BP 93/53
[2018-04-26 05:46] LABS: ANION GAP 5 mmol/L (5-15); CALCIUM 8.3 mg/dL (8.5-10.1); CHLORIDE 102 mmol/L (98-107)
[2018-04-26 05:48] LABS: CREATININE 0.56 mg/dL (0.7-1.3)
[2018-04-26 06:18] VITALS: BP 100/58
[2018-04-26] MEDS: LISINOPRIL 5 MG TABLET PO SCH (09:00)
[2018-04-26] MEDS: POTASSIUM CHLORIDE 10 MEQ TABLET.ER PO SCH (09:42)
[2018-04-26] MEDS: ASPIRIN 81 MG TABLET EC PO SCH (09:42)
[2018-04-26] MEDS: APIXABAN 5 MG TABLET PO SCH ×2 (09:42→20:38)
[2018-04-26] MEDS: CARVEDILOL 3.125 MG TABLET PO SCH ×2 (09:44→20:38)
[2018-04-26] MEDS: FUROSEMIDE 20 MG TABLET PO SCH (09:45)
[2018-04-26] MEDS ORDERED: MAGNESIUM SULFATE PMX 2GM/50ML 50 ML IV ONE (10:30)
[2018-04-26 14:00] VITALS: BP 102/62
[2018-04-26 19:01] VITALS: BP 96/59
[2018-04-26 19:46] VITALS: BP 94/56
[2018-04-26 20:32] VITALS: BP 95/53
[2018-04-26] MEDS: TRAZODONE 50MG TABLET PO SCH ×2 (20:37→22:35)
[2018-04-26] MEDS: ATORVASTATIN 20 MG TABLET PO SCH (20:37)
[2018-04-27 01:10] VITALS: BP 91/51
[2018-04-27 05:05] LABS: ANION GAP 3 mmol/L (5-15); CALCIUM 8.1 mg/dL (8.5-10.1); CHLORIDE 102 mmol/L (98-107)
[2018-04-27 05:06] LABS: CREATININE 0.52 mg/dL (0.7-1.3)
[2018-04-27 07:21] VITALS: BP 96/57
[2018-04-27 09:20] VITALS: BP 105/60
[2018-04-27] MEDS: FUROSEMIDE 20 MG TABLET PO SCH (09:23)
[2018-04-27] MEDS: POTASSIUM CHLORIDE 10 MEQ TABLET.ER PO SCH (09:23)
[2018-04-27] MEDS: APIXABAN 5 MG TABLET PO SCH (09:23)
[2018-04-27] MEDS: CARVEDILOL 3.125 MG TABLET PO SCH (09:23)
[2018-04-27] MEDS: LISINOPRIL 5 MG TABLET PO SCH (09:23)
[2018-04-27] MEDS: ASPIRIN 81 MG TABLET EC PO SCH (09:23)
== END 2018-04-27 12:20 | disposition left against medical advice (07) | DRG 291 ==
LOC: ED 06:15 → EDIP 09:06 → 4EST 10:37
PROVIDERS: ADMIT Internal Medicine; ATTEND Internal Medicine
PROC: 0W9B3ZZ Drainage of Left Pleural Cavity, Percutaneous Approach (ICD-10-PCS; principal; 2018-04-23)
DX: I11.0 Hypertensive heart disease with heart failure (principal); J96.01 Acute respiratory failure with hypoxia; E43 Unspecified severe protein-calorie malnutrition; J98.11 Atelectasis; D68.59 Other primary thrombophilia; J44.1 Chronic obstructive pulmonary disease with (acute) exacerbation; J90 Pleural effusion, not elsewhere classified; I50.33 Acute on chronic diastolic (congestive) heart failure; Z68.22 Body mass index [BMI] 22.0-22.9, adult; D50.9 Iron deficiency anemia, unspecified; D72.829 Elevated white blood cell count, unspecified; E83.42 Hypomagnesemia; F17.210 Nicotine dependence, cigarettes, uncomplicated; I27.20 Pulmonary hypertension, unspecified; I48.2 Chronic atrial fibrillation; R13.10 Dysphagia, unspecified; Z79.01 Long term (current) use of anticoagulants; Z82.49 Family history of ischemic heart disease and other diseases of the circulatory system
CPT/HCPCS: 32555; 36415; 71046; 71250; 80048; 80053; 82150; 82945; 83615; 83735; 83880; 83986; 84100; 84157; 85025; 87070; 87205; 88112; 88305; 88341; 88342; 89051; 93005; 94640; 96374; 99285; J1940; J3490; G0461; J3475; J7030; J7040; J7512

== ENCOUNTER 2018-05-19 17:22 | Emergency (ER) | payer MEDICARE, MEDICAID ==
[~2018-05-19] VITALS: Ht 177.8 cm; Wt 50.0 kg
[2018-05-19 17:24] VITALS: BP 103/65
== END 2018-05-19 18:03 | disposition home or self-care (01) ==
LOC: ED 17:45
DX: I10 Essential (primary) hypertension (principal); I50.9 Heart failure, unspecified; I48.91 Unspecified atrial fibrillation; M19.90 Unspecified osteoarthritis, unspecified site; M54.9 Dorsalgia, unspecified; G89.29 Other chronic pain; F17.200 Nicotine dependence, unspecified, uncomplicated
CPT/HCPCS: 99283

== ENCOUNTER 2018-05-22 00:54 | Emergency (ER) | payer MEDICARE, MEDICAID ==
[~2018-05-22] VITALS: Ht 172.7 cm; Wt 50.0 kg
[2018-05-22 01:55] LABS: CULTURE INDICATED? YES; MICROSCOPIC INDICATED
[2018-05-22 02:41] VITALS: BP 90/52
== END 2018-05-22 02:45 | disposition home or self-care (01) ==
LOC: ED 01:45
DX: N30.00 Acute cystitis without hematuria (principal); N40.1 Benign prostatic hyperplasia with lower urinary tract symptoms; R33.8 Other retention of urine; I11.0 Hypertensive heart disease with heart failure; I50.9 Heart failure, unspecified; I48.91 Unspecified atrial fibrillation; J44.9 Chronic obstructive pulmonary disease, unspecified
CPT/HCPCS: 51702; 81001; 87077; 87086; 87186; 99284

== ENCOUNTER 2018-07-04 02:33 | Emergency (ER) | payer MEDICARE, MEDICAID ==
[~2018-07-04] VITALS: Ht 177.8 cm; Wt 52.0 kg
[2018-07-04 03:24] LABS: CULTURE INDICATED? YES; MICROSCOPIC INDICATED
[2018-07-04 04:46] VITALS: BP 137/82
== END 2018-07-04 04:48 | disposition home or self-care (01) ==
LOC: ED 03:05
DX: N30.00 Acute cystitis without hematuria (principal); R33.9 Retention of urine, unspecified; M19.90 Unspecified osteoarthritis, unspecified site; J44.9 Chronic obstructive pulmonary disease, unspecified; I48.91 Unspecified atrial fibrillation; I11.0 Hypertensive heart disease with heart failure; I50.9 Heart failure, unspecified
CPT/HCPCS: 51702; 81001; 87077; 87086; 87186; 99284

== ENCOUNTER 2018-07-12 10:43 | Emergency (ER) | payer MEDICARE, MEDICAID ==
[~2018-07-12] VITALS: Ht 177.8 cm; Wt 48.7 kg
[2018-07-12 11:04] VITALS: BP 103/63
== END 2018-07-12 13:05 | disposition left against medical advice (07) ==
LOC: ED 12:55
DX: R33.9 Retention of urine, unspecified (principal)
CPT/HCPCS: 99281

== ENCOUNTER 2018-07-20 18:10 | Emergency (ER) | payer MEDICARE, MEDICAID ==
[~2018-07-20] VITALS: Ht 182.9 cm; Wt 72.0 kg
[2018-07-20 19:10] VITALS: BP 130/70
== END 2018-07-20 19:36 | disposition home or self-care (01) ==
LOC: ED 18:21
DX: N40.1 Benign prostatic hyperplasia with lower urinary tract symptoms (principal); R33.8 Other retention of urine; G89.29 Other chronic pain; J44.9 Chronic obstructive pulmonary disease, unspecified; I50.9 Heart failure, unspecified; I48.91 Unspecified atrial fibrillation; I10 Essential (primary) hypertension; F17.200 Nicotine dependence, unspecified, uncomplicated
CPT/HCPCS: 51702; 87086; 87106; 99284

== ENCOUNTER 2018-08-10 14:31 | Emergency (ER) | payer MEDICARE, MEDICAID ==
[~2018-08-10] VITALS: Ht 157.5 cm; Wt 54.8 kg
[~2018-08-10 14:31] MED LIST changes: -ASPI-621 PO; +ASPI81TA45 PO; +ATOR20TA37 PO; -ATOR20TA9 PO; -TRAZ-136 PO; +TRAZ50TA66 PO
[2018-08-10 14:47] VITALS: BP 137/87
== END 2018-08-10 16:40 | disposition home or self-care (01) ==
LOC: ED 15:17
DX: T83.038A Leakage of other urinary catheter, initial encounter (principal); I48.91 Unspecified atrial fibrillation; M19.90 Unspecified osteoarthritis, unspecified site; I11.0 Hypertensive heart disease with heart failure; I50.9 Heart failure, unspecified; J44.9 Chronic obstructive pulmonary disease, unspecified; F17.200 Nicotine dependence, unspecified, uncomplicated
CPT/HCPCS: 99281

== ENCOUNTER 2019-01-15 10:59 | Emergency (ER) | payer MEDICARE, MEDICAID ==
[~2019-01-15] VITALS: Ht 177.8 cm; Wt 49.0 kg
[~2019-01-15 10:59] MED LIST changes: +AMOX1TAB64 PO; +BENZ-17 PO; +GUAI600T31 PO; -HYDR1TAB12 PO; +HYDR1TAB13 PO; +HYDROCODONE PO; +NICO-486 TD
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
--- NOTE | 2019-01-15 11:16 | NUR ---
BREAK RN. ALERT AND ORIENTED 78 Y/O M PRESENTS STATING "BEEN THROWING UP FOR 3 DAYS, CAN'T KEEP ANYTHING DOWN, WATER, FOOD, BEER, NOTHING." DENIES ANY PAIN/ABD PAIN OR DIARRHEA. BOWEL SOUNDS ACTIVE, ABD SOFT. MUCOUS MEMBRANES MOIST. CONT PULSE OX, BP MONITORS APPLIED. VSS. CALL LIGHT IN REACH. FALL PRECUATIONS IN PLACE. SIDE RAILS UPX2. ALLIE APPLE AT BEDSIDE FOR EVALUATION. AWAITING ORDERS.
[2019-01-15] MEDS ORDERED: SODIUM CHLORIDE 0.9% 1,000ML IVBOLUS ONE (11:30)
[2019-01-15] MEDS ORDERED: SODIUM CHLORIDE FLUSH 10ML SYR IVF ONE (11:30)
[2019-01-15] MEDS ORDERED: FAMOTIDINE 20 MG/2 ML IVP ONE (11:30)
[2019-01-15] MEDS ORDERED: ONDANSETRON 2MG/ML, 2ML IVPush ONE (11:30)
--- NOTE | 2019-01-15 11:40 | NUR ---
BEDSIDE REPORT AND CARE TO BECKY SELLERS
[2019-01-15] MEDS ORDERED: FAMOTIDINE 20 MG/2 ML ONE (11:58)
[2019-01-15] MEDS ORDERED: ONDANSETRON 2MG/ML, 2ML ONE (11:58)
[2019-01-15 12:19] LABS: BASOPHILS # (AUTO) 0.04 x10^3/uL (0-0.1); BASOPHILS % (AUTO) 1 % (0-1); EOSINOPHILS # (AUTO) 0.09 x10^3/uL (0-0.4); EOSINOPHILS % (AUTO) 2 % (1-7); LYMPHOCYTES # (AUTO) 0.76 x10^3/uL (1-3.4); LYMPHOCYTES % (AUTO) 12 % (22-44); MD NO; MEAN CORPUSCULAR HEMOGLOBIN 33.6 pg (27.5-34.5); MEAN CORPUSCULAR HGB CONC 33.1 g/dL (33.2-36.2); MEAN CORPUSCULAR VOLUME 101.5 fL (81-97); MEAN PLATELET VOLUME 8.6 fL (7.4-10.4); MONOCYTES # (AUTO) 0.82 x10^3/uL (0.2-0.8); MONOCYTES % (AUTO) 13 % (2-9); NEUTROPHILS # (AUTO) 4.74 x10^3/uL (1.8-6.8); NEUTROPHILS % (AUTO) 73 % (42-75); PLATELET COUNT 302 x10^3/uL (130-400); RED BLOOD COUNT 3.67 x10^6/uL (4.38-5.82); RED CELL DISTRIBUTION WIDTH 16.1 % (9.4-14.8)
[2019-01-15 12:33] LABS: ALBUMIN 3.2 g/dL (3.4-5.0); CHLORIDE 105 mmol/L (98-107)
[2019-01-15 12:40] LABS: ALANINE AMINOTRANSFERASE 17 U/L (12-78); ALKALINE PHOSPHATASE 86 U/L (45-117); ANION GAP 6 mmol/L (5-15); BILIRUBIN,TOTAL 0.7 mg/dL (0.2-1.0); CALCIUM 8.9 mg/dL (8.5-10.1); CREATININE 0.75 mg/dL (0.7-1.3)
--- NOTE | 2019-01-15 13:55 | NUR ---
PATIENT TOLERATING PO FLUIDS/CRACKERS. REPORT "MY BELLY FEELS A BIT BETTER. BUT IM STILL TIRED." PROVIDER AWARE VITALS UPDATED UPDATED ON POC
[2019-01-15 14:07] LABS: CULTURE INDICATED? NO; MICROSCOPIC NOT IND
--- NOTE | 2019-01-15 14:41 | NUR ---
PREPARING FOR DISPO- PATIENT REPORTING :" I DON'T KNOW IF I FEEL SAFE. I'M STILL COUGHING UP ALOT OF GREEN SPUTUM." PROVIDER/THROUGHPUT RN MADE AWARE. SPOT CHECK POX 84% NOW WELL
--- NOTE | 2019-01-15 15:05 | NUR ---
PATIENT NOW ASKING TO GO HOME. PROVIDER TO BEDSIDE TO ASSESS. PATIENT PASSED INDOOR PLANT TECHNICIAN ROAD TEST-POX REMAINED 90 WALKING DOWN THE [place] W/OUT INCREASED WOB. PROVIDER TO DISCHARGE (AGAIN). INDOOR PLANT TECHNICIAN COMFORTABLE SENDING PATIENT HOME HIS WORKUP HAS BEEN UNREMARKABLE AND HE HAS A HOME OXYGEN CONCENTRATOR WHICH HE USES EVERY NIGHT.
[2019-01-15 15:43] VITALS: BP 127/79
== END 2019-01-15 15:47 | disposition home or self-care (01) ==
LOC: ED 12:28
DX: K52.9 Noninfective gastroenteritis and colitis, unspecified (principal); R11.2 Nausea with vomiting, unspecified; I11.0 Hypertensive heart disease with heart failure; I50.9 Heart failure, unspecified; M19.90 Unspecified osteoarthritis, unspecified site; M54.9 Dorsalgia, unspecified; G89.29 Other chronic pain; J44.9 Chronic obstructive pulmonary disease, unspecified; I48.91 Unspecified atrial fibrillation
CPT/HCPCS: 36415; 74022; 80053; 81003; 83690; 85025; 93005; 96361; 96374; 96375; 99284; J2405; J3490; J7030

== ENCOUNTER 2019-01-27 10:00 | Inpatient (IN) | payer MEDICARE, MEDICAID ==
[~2019-01-27] VITALS: Ht 170.2 cm; Wt 54.2 kg
--- NOTE | 2019-01-27 10:16 | NUR ---
SEE TRIAGE NOTE. PT APPEARS ANGRY AND DOES NOT WANT TO INTERACT OR COMMUNICATE WITH STAFF. PT ASSISTED WITH UNDRESSING SHIRT, COMPLAINED TO THIS RN AND STATES "I DON'T NEED YOUR HELP". GOWN LEFT IN ROOM WITH PT. VS REPORTED FROM DUNG D/T PT REFUSING TREATMENT.
[2019-01-27] MEDS ORDERED: ALBUTEROL/IPRATROPIUM 2.5MG/0.5MG, 3 ML NPPB ONE (10:30)
[2019-01-27 11:21] LABS: MEAN CORPUSCULAR HGB CONC 32.1 g/dL (33.2-36.2); MEAN CORPUSCULAR VOLUME 102.8 fL (81-97); MEAN PLATELET VOLUME 8.8 fL (7.4-10.4); PLATELET COUNT 194 x10^3/uL (130-400); RED BLOOD COUNT 3.88 x10^6/uL (4.38-5.82); RED CELL DISTRIBUTION WIDTH 15.8 % (9.4-14.8)
--- NOTE | 2019-01-27 11:34 | NUR ---
PER ANALYTICAL SCIENCES DIRECTOR, PT FELL WHILE IN XRAY. PT BACK IN ROOM, EXAMINED BY MED RESIDENT AND THIS RN. PT WITH SMALL LAC TO UPPER R CORNER LIP. SKIN TEAR TO L FOREARM. PT STATES HE GOT UP OFF GURNEY TO STAND FOR XRAY AND "BLACKED OUT". CONFIRMED +LOC WITH PT. PT STATES HE "THINKS I GOT UP TOO QUICK". WOUNDS CLEANED, STERISTRIPS AND SALINE AT BS. PT NOW CONSENTING TO WATER AEROBICS INSTRUCTOR AND BP CUFF WHICH ARE NOW IN PLACE. VSS/UPDATED IN COMPUTER. FALL RISK UPDATED IN COMPUTER. ADD ON CT HEAD ORDERED.
[2019-01-27 11:35] LABS: ALBUMIN 3.1 g/dL (3.4-5.0); ANION GAP 7 mmol/L (5-15); CHLORIDE 102 mmol/L (98-107)
[2019-01-27 11:41] LABS: ALANINE AMINOTRANSFERASE 14 U/L (12-78); ALKALINE PHOSPHATASE 86 U/L (45-117); CREATININE 0.86 mg/dL (0.7-1.3); TOTAL PROTEIN 6.9 g/dL (6.4-8.2); TROPONIN I < 0.015 ng/mL (0.000-0.045)
--- NOTE | 2019-01-27 11:50 | NUR ---
MED REC COMPLETED. PT DENIES TAKING ROUTINE MEDICATIONS ORDERED, INCLUDING ELIQUIS.
[2019-01-27 11:56] LABS: BASOPHILS # (AUTO) 0.01 x10^3/uL (0-0.1); BASOPHILS % (AUTO) 0 % (0-1); EOSINOPHILS # (AUTO) 0.02 x10^3/uL (0-0.4); EOSINOPHILS % (AUTO) 0 % (1-7); LYMPHOCYTES # (AUTO) 0.88 x10^3/uL (1-3.4); LYMPHOCYTES % (AUTO) 7 % (22-44); MD SCAN; MONOCYTES % (AUTO) 5 % (2-9); NEUTROPHILS # (AUTO) 11.63 x10^3/uL (1.8-6.8); NEUTROPHILS % (AUTO) 88 % (42-75)
--- NOTE | 2019-01-27 12:03 | NUR ---
REPORT TO DAVID SELLERS, TRANSFER OF CARE AT THIS TIME.
--- NOTE | 2019-01-27 12:28 | NUR ---
RECEIVED BEDSIDE REPORT AND CARE FROM PATY SELLERS AT THIS TIME. CARE ASSUMED. DR. BURCIAGA AT BEDSIDE FOR EVALUATION. PT TO BE ADMITTED TO HOSPITAL AGREES TO POC, VERBALIZED UNDERSTANDING. DENIES ANY PAIN AND NEED TO USE RESTROOM. PT A&OX4, ANSWERS QUESTIONS APPROPRIATE, COOPERATIVE AT THIS TIME. VSS. A-FIB, CONTROLLED, ON MONITOR. PULSE OX 97% 3L NC, PT REPORTS HE USES 3L NC O2 AT ALL TIMES AT HOME. LEFT ARM SKIN CARE REPAIRED WITH STERI-STRIPS BY ERP. CDI. CONT PULSE OX, BP, CARDIAC MONITORS REMAIN IN PLACE. PT REFUSES TO CHANGE INTO A GOWN, "I WANT TO STAY IN MY CLOTHING." DISCUSSED WITH DR. BURCIAGA,AWARE, NO NEW ORDERS RECEIVED. PT AWAITING CT AND ROOM ASSIGNMENT ON FLOOR. FALL PRECAUTIONS IN PLACE. SIDE RAILS UPX2. CALL LIGHT IN LAP.
[2019-01-27] MEDS ORDERED: SODIUM CHLORIDE 0.9%, 500ML IVBOLUS ONE (12:30)
[2019-01-27] MEDS ORDERED: SODIUM CHLORIDE FLUSH 10ML SYR IVF PRN (13:00)
--- NOTE | 2019-01-27 13:11 | NUR ---
ADMITTING PROVIDER AT BEDSIDE FOR EVALUATION
[2019-01-27] MEDS ORDERED: LORazepam 1MG TABLET PO PRN ×4 (13:30)
[2019-01-27] MEDS ORDERED: OXYcodone IR 5MG TABLET PO PRN (13:30)
[2019-01-27] MEDS ORDERED: LORazepam 0.5MG TABLET PO PRN (13:30)
[2019-01-27] MEDS ORDERED: morphine SULFATE 10 MG/ML, 1ML IVPush PRN (13:30)
[2019-01-27] MEDS ORDERED: LORazepam 2 MG/ML, 1ML IV PRN ×5 (13:30)
[2019-01-27] MEDS ORDERED: VANCOMYCIN PER PHARMACY MC PRN (13:30)
--- NOTE | 2019-01-27 13:37 | NUR ---
IVF INFUSING PER ORDER. LAB CALLED FOR BC DRAW. PT RESTING IN POSITION OF COMFORT. DENIES ANY PAIN AND NEED TO USE RESTROOM. DIET TRAY PROVIDED PER ERP ORDER, PT TOLERATING PO WELL, EATING WITHOUT ANY DIFFICULTIES. VSS. CALL LIGHT AND FALL PRECAUTIONS IN PLACE.
--- NOTE | 2019-01-27 13:42 | NUR ---
REPORT AND CARE TO JOANNE STODDARD FOR ROOM 348. PT AWAITING BLOOD CULTURE DRAW.
[2019-01-27] MEDS ORDERED: TAMSULOSIN 0.4 MG CAP.ER.24H PO ONE (14:00)
[2019-01-27] MEDS ORDERED: FOLIC ACID 5 MG/ML IM ONE (14:00)
[2019-01-27 14:30] VITALS: BP 133/71
[2019-01-27] MEDS: NICOTINE 14MG/24 HR PATCH.TD24 TD SCH ×2 (14:30→22:19)
[2019-01-27] MEDS ORDERED: PHARMACOKINETIC MONITORING MC PRN (14:30)
[2019-01-27] MEDS: CEFEPIME 1 GM in DEXTROSE 5% 50 ML IV SCH (14:51)
[2019-01-27] MEDS: VANCOMYCIN PMX 1GM/200ML 200 ML IVPB SCH (16:45)
[2019-01-27] MEDS: methylPREDNISolone SOD SUCC 125 MG/2 ML IV SCH (16:45)
[2019-01-27] MEDS ORDERED: ALBUTEROL/IPRATROPIUM 2.5MG/0.5MG, 3 ML NPPB PRN (17:00)
[2019-01-27 20:27] VITALS: BP 102/60
[2019-01-28] MEDS: CEFEPIME 1 GM in DEXTROSE 5% 50 ML IV SCH ×2 (02:35→14:27)
[2019-01-28] MEDS: methylPREDNISolone SOD SUCC 125 MG/2 ML IV SCH (05:03)
[2019-01-28 05:05] VITALS: BP 124/72
[2019-01-28 06:07] LABS: BASOPHILS # (AUTO) 0.03 x10^3/uL (0-0.1); BASOPHILS % (AUTO) 0 % (0-1); EOSINOPHILS % (AUTO) 0 % (1-7); LYMPHOCYTES # (AUTO) 0.57 x10^3/uL (1-3.4); LYMPHOCYTES % (AUTO) 7 % (22-44); MD NO; MEAN CORPUSCULAR HEMOGLOBIN 33.6 pg (27.5-34.5); MEAN CORPUSCULAR HGB CONC 32.3 g/dL (33.2-36.2); MEAN CORPUSCULAR VOLUME 103.8 fL (81-97); MEAN PLATELET VOLUME 9.1 fL (7.4-10.4); MONOCYTES # (AUTO) 0.21 x10^3/uL (0.2-0.8); MONOCYTES % (AUTO) 3 % (2-9); NEUTROPHILS # (AUTO) 7.59 x10^3/uL (1.8-6.8); NEUTROPHILS % (AUTO) 90 % (42-75); PLATELET COUNT 186 x10^3/uL (130-400); RED BLOOD COUNT 4.13 x10^6/uL (4.38-5.82); RED CELL DISTRIBUTION WIDTH 15.9 % (9.4-14.8)
[2019-01-28 06:08] LABS: ANION GAP 3 mmol/L (5-15); CALCIUM 8.6 mg/dL (8.5-10.1); CHLORIDE 105 mmol/L (98-107)
[2019-01-28 06:19] LABS: CREATININE 0.71 mg/dL (0.7-1.3); THYROID STIMULATING HORMONE 0.519 mIU/L (0.358-3.740)
[2019-01-28 07:20] VITALS: BP 122/71
[2019-01-28] MEDS: ENOXAPARIN 40 MG/0.4 ML SQ SCH (10:27)
[2019-01-28] MEDS: MULTIVITAMINS/MINERALS TABLET PO SCH (10:28)
[2019-01-28] MEDS: THIAMINE 100MG TABLET PO SCH (10:28)
[2019-01-28] MEDS: ONDANSETRON 2MG/ML, 2ML IVPush PRN (12:46)
[2019-01-28 13:48] VITALS: BP 135/77
[2019-01-28] MEDS ORDERED: LORazepam 0.5MG TABLET PO PRN (14:30)
[2019-01-28] MEDS: VANCOMYCIN PMX 1GM/200ML 200 ML IVPB SCH (15:49)
--- NOTE | 2019-01-28 17:55 | NUR ---
REC NPO; swallow precautions sheet posted at bedside Addendum: 01/28/19 at [address] Amended: Links added.
[2019-01-28 20:20] VITALS: BP 109/62
[2019-01-28] MEDS: ACETAMINOPHEN 325 MG TABLET PO PRN (22:33)
[2019-01-29] MEDS: CEFEPIME 1 GM in DEXTROSE 5% 50 ML IV SCH ×2 (02:03→14:08)
[2019-01-29 02:08] VITALS: BP 112/63
[2019-01-29 08:00] VITALS: BP 118/74
[2019-01-29] MEDS: MULTIVITAMINS/MINERALS TABLET PO SCH (08:39)
[2019-01-29] MEDS: THIAMINE 100MG TABLET PO SCH (08:39)
[2019-01-29] MEDS: ENOXAPARIN 40 MG/0.4 ML SQ SCH (08:40)
[2019-01-29 13:25] VITALS: BP 122/64
[2019-01-29] MEDS: ONDANSETRON 2MG/ML, 2ML IVPush PRN (14:08)
[2019-01-29] MEDS: NICOTINE 14MG/24 HR PATCH.TD24 TD SCH (14:08)
[2019-01-29] MEDS: VANCOMYCIN PMX 1GM/200ML 200 ML IVPB SCH (16:14)
[2019-01-29] MEDS: FLUCONAZOLE 200 MG/100 ML 100 ML IV SCH (17:31)
[2019-01-29 18:31] VITALS: BP 132/79
[2019-01-29] MEDS: AMPICILLIN/SULBACTAM 3 GM in SODIUM CHLORIDE 0.9% 100 ML IV SCH ×2 (18:41→23:26)
[2019-01-30 00:04] VITALS: BP 155/87
[2019-01-30] MEDS: TRAZODONE 50MG TABLET PO PRN ×2 (00:18→21:56)
[2019-01-30] MEDS: AMPICILLIN/SULBACTAM 3 GM in SODIUM CHLORIDE 0.9% 100 ML IV SCH ×4 (05:21→23:24)
[2019-01-30 07:05] VITALS: BP 136/75
[2019-01-30] MEDS ORDERED: PANTOPRAZOLE 40 MG IV IVPush SCH (10:00)
[2019-01-30] MEDS: MULTIVITAMINS/MINERALS TABLET PO SCH (10:37)
[2019-01-30] MEDS: THIAMINE 100MG TABLET PO SCH (10:37)
[2019-01-30 13:25] VITALS: BP 99/57
[2019-01-30] MEDS: NICOTINE 14MG/24 HR PATCH.TD24 TD SCH (14:12)
[2019-01-30] MEDS: ACETAMINOPHEN 325 MG TABLET PO PRN (16:27)
[2019-01-30] MEDS: FLUCONAZOLE 200 MG/100 ML 100 ML IV SCH (16:27)
[2019-01-30] MEDS: OXYcodone IR 5MG TABLET PO PRN ×2 (16:27→21:56)
[2019-01-30 19:51] VITALS: BP 101/52
[2019-01-31 00:35] VITALS: BP 102/53
[2019-01-31 04:52] LABS: BASOPHILS % (AUTO) 0 % (0-1); EOSINOPHILS # (AUTO) 0.03 x10^3/uL (0-0.4); EOSINOPHILS % (AUTO) 0 % (1-7); LYMPHOCYTES # (AUTO) 0.89 x10^3/uL (1-3.4); LYMPHOCYTES % (AUTO) 9 % (22-44); MD NO; MEAN CORPUSCULAR HEMOGLOBIN 33.6 pg (27.5-34.5); MEAN CORPUSCULAR HGB CONC 32.3 g/dL (33.2-36.2); MEAN CORPUSCULAR VOLUME 103.9 fL (81-97); MEAN PLATELET VOLUME 8.7 fL (7.4-10.4); MONOCYTES # (AUTO) 0.17 x10^3/uL (0.2-0.8); MONOCYTES % (AUTO) 2 % (2-9); NEUTROPHILS # (AUTO) 8.67 x10^3/uL (1.8-6.8); NEUTROPHILS % (AUTO) 89 % (42-75); PLATELET COUNT 179 x10^3/uL (130-400); RED BLOOD COUNT 3.95 x10^6/uL (4.38-5.82); RED CELL DISTRIBUTION WIDTH 15.7 % (9.4-14.8)
[2019-01-31 05:07] LABS: ANION GAP 3 mmol/L (5-15); CALCIUM 8.2 mg/dL (8.5-10.1); CHLORIDE 105 mmol/L (98-107); CREATININE 0.54 mg/dL (0.7-1.3)
[2019-01-31] MEDS: AMPICILLIN/SULBACTAM 3 GM in SODIUM CHLORIDE 0.9% 100 ML IV SCH ×4 (05:28→23:11)
[2019-01-31] MEDS: PANTOPROZOLE 40MG TABLET PO SCH (05:28)
[2019-01-31] MEDS: OXYcodone IR 5MG TABLET PO PRN ×2 (05:28→19:32)
[2019-01-31 07:33] VITALS: BP 112/66
[2019-01-31] MEDS ORDERED: PROPOFOL 10 MG/ML, 20ML ONE (07:57)
[2019-01-31] MEDS ORDERED: ALBUTEROL/IPRATROPIUM 2.5MG/0.5MG, 3 ML NPPB PRN (09:00)
[2019-01-31] MEDS ORDERED: FENTANYL PF 100 MCG/2ML ONE (09:01)
[2019-01-31] MEDS: FENTANYL PF 100 MCG/2ML IV PRN ×4 (09:03→09:38)
[2019-01-31] MEDS ORDERED: METOPROLOL 1 MG/ML, 5ML ONE (09:18)
[2019-01-31] MEDS: METOPROLOL 1 MG/ML, 5ML IV PRN ×4 (09:20→10:05)
[2019-01-31] MEDS: ENOXAPARIN 40 MG/0.4 ML SQ SCH (10:51)
[2019-01-31] MEDS: MULTIVITAMINS/MINERALS TABLET PO SCH (10:51)
[2019-01-31 13:05] VITALS: BP 118/69
[2019-01-31] MEDS: NICOTINE 14MG/24 HR PATCH.TD24 TD SCH (16:09)
[2019-01-31] MEDS: FLUCONAZOLE 200 MG/100 ML 100 ML IV SCH (16:45)
[2019-01-31] MEDS: TRAZODONE 50MG TABLET PO PRN (19:32)
[2019-01-31 20:28] VITALS: BP 98/63
[2019-02-01 03:08] VITALS: BP 105/60
[2019-02-01] MEDS: PANTOPROZOLE 40MG TABLET PO SCH (05:22)
[2019-02-01] MEDS: OXYcodone IR 5MG TABLET PO PRN (05:22)
[2019-02-01] MEDS: AMPICILLIN/SULBACTAM 3 GM in SODIUM CHLORIDE 0.9% 100 ML IV SCH (05:23)
[2019-02-01 07:56] VITALS: BP 96/65
[2019-02-01] MEDS ORDERED: OMEP-110 PO (08:04)
[2019-02-01] MEDS ORDERED: AMOX1TAB64 PO (08:04)
[2019-02-01] MEDS: ENOXAPARIN 40 MG/0.4 ML SQ SCH (09:42)
[2019-02-01] MEDS: MULTIVITAMINS/MINERALS TABLET PO SCH (09:44)
== END 2019-02-01 11:00 | disposition home or self-care (01) | DRG 177 ==
LOC: ED 12:32 → EDIP 12:54 → 3NW 13:54 → DCLOUNGE 02-01 10:52
PROVIDERS: ADMIT Internal Medicine; ATTEND Internal Medicine
PROC: BD11YZZ Fluoroscopy of Esophagus using Other Contrast (ICD-10-PCS; 2019-01-29)
PROC: 0DB98ZZ Excision of Duodenum, Via Natural or Artificial Opening Endoscopic (ICD-10-PCS; 2019-01-31)
PROC: 0D748ZZ Dilation of Esophagogastric Junction, Via Natural or Artificial Opening Endoscopic (ICD-10-PCS; principal; 2019-01-31 08:00)
DX: J69.0 Pneumonitis due to inhalation of food and vomit (principal); J96.21 Acute and chronic respiratory failure with hypoxia; E43 Unspecified severe protein-calorie malnutrition; I50.32 Chronic diastolic (congestive) heart failure; D53.9 Nutritional anemia, unspecified; D75.89 Other specified diseases of blood and blood-forming organs; E86.0 Dehydration; F10.10 Alcohol abuse, uncomplicated; F17.210 Nicotine dependence, cigarettes, uncomplicated; I27.20 Pulmonary hypertension, unspecified; I48.91 Unspecified atrial fibrillation; J43.9 Emphysema, unspecified; K22.2 Esophageal obstruction; N40.0 Benign prostatic hyperplasia without lower urinary tract symptoms; S50.812A Abrasion of left forearm, initial encounter; Y95 Nosocomial condition; W18.39XA Other fall on same level, initial encounter; Y93.89 Activity, other specified; Y92.89 Other specified places as the place of occurrence of the external cause; Y99.8 Other external cause status; Z82.49 Family history of ischemic heart disease and other diseases of the circulatory system; Z87.01 Personal history of pneumonia (recurrent); Z91.14 Patient's other noncompliance with medication regimen; Z91.19 Patient's noncompliance with other medical treatment and regimen; Z99.81 Dependence on supplemental oxygen
CPT/HCPCS: 36415; 70450; 71045; 74220; 74230; 80048; 80053; 80202; 83880; 84145; 84443; 84484; 85025; 87040; 88305; 93005; 94640; 96374; 96375; 99285; G0378; J0295; J0692; J1650; J2405; J2704; J3010; J3370; J7620; C1725; C9113; J1450; J2060; J2930; J7040; J7512

== ENCOUNTER 2019-02-22 18:07 | Inpatient (IN) | payer MEDICARE, MEDICAID ==
[~2019-02-22] VITALS: Ht 177.8 cm; Wt 47.2 kg
[~2019-02-22 18:07] MED LIST changes: +ACID1TAB7 PO; +AMOX-291 PO; +DOXY100C2 PO; +NICO-487 TD; +OMEP-110 PO; +TAMS-11 PO; +TRAZ-137 PO
[2019-02-22] MEDS ORDERED: SODIUM CHLORIDE FLUSH 10ML SYR IVF ONE (18:30)
--- NOTE | 2019-02-22 18:45 | NUR ---
PT DECLINED LABS, STATED "I JUST NEED OXYGEN."
--- NOTE | 2019-02-22 19:01 | NUR ---
PT TO ROOM AT THIS TIME
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
[2019-02-22 19:25] LABS: ALANINE AMINOTRANSFERASE 22 U/L (12-78); ALBUMIN 3.2 g/dL (3.4-5.0); ANION GAP 2 mmol/L (5-15); CHLORIDE 102 mmol/L (98-107); CREATININE 0.61 mg/dL (0.7-1.3)
[2019-02-22 19:28] LABS: MEAN CORPUSCULAR HEMOGLOBIN 33.9 pg (27.5-34.5); MEAN CORPUSCULAR HGB CONC 32.5 g/dL (33.2-36.2); MEAN CORPUSCULAR VOLUME 104.4 fL (81-97); MEAN PLATELET VOLUME 8.1 fL (7.4-10.4); PLATELET COUNT 248 x10^3/uL (130-400); RED BLOOD COUNT 3.43 x10^6/uL (4.38-5.82); RED CELL DISTRIBUTION WIDTH 15.8 % (9.4-14.8)
[2019-02-22 19:30] LABS: ALKALINE PHOSPHATASE 76 U/L (45-117); BILIRUBIN,TOTAL 0.4 mg/dL (0.2-1.0); TROPONIN I < 0.015 ng/mL (0.000-0.045)
--- NOTE | 2019-02-22 19:52 | NUR ---
LATE ENTRY: REPORT TO VERITO CAVAZOS TO ASSUME CARE OF PT. IV PLACED FOR ADMISSION.
[2019-02-22 19:55] LABS: BASOPHILS # (AUTO) 0.04 x10^3/uL (0-0.1); BASOPHILS % (AUTO) 1 % (0-1); EOSINOPHILS # (AUTO) 0.09 x10^3/uL (0-0.4); EOSINOPHILS % (AUTO) 1 % (1-7); LYMPHOCYTES # (AUTO) 0.89 x10^3/uL (1-3.4); LYMPHOCYTES % (AUTO) 11 % (22-44); MD SCAN; MONOCYTES # (AUTO) 0.52 x10^3/uL (0.2-0.8); MONOCYTES % (AUTO) 6 % (2-9); NEUTROPHILS # (AUTO) 6.51 x10^3/uL (1.8-6.8); NEUTROPHILS % (AUTO) 81 % (42-75)
--- NOTE | 2019-02-22 20:21 | NUR ---
REPORT TO VERITO BROWN. FLOOR READY FOR PT. TRANSPORT.
--- NOTE | 2019-02-22 20:24 | NUR ---
PT. TO GO TO MED TELE INSTEAD OF MED TELE NOW.
--- NOTE | 2019-02-22 20:43 | NUR ---
REPORT TO VERITO KING. FLOOR READY FOR PT. TRANSPORT.
[2019-02-22 21:11] VITALS: BP 144/74
[2019-02-22] MEDS: OMEPRAZOLE 20 MG CAPSULE.DR PO SCH (22:58)
[2019-02-22] MEDS: AMOXICILLIN 500 MG CAPSULE PO SCH (22:58)
[2019-02-22] MEDS: DOXYCYCLINE 100MG CAP PO SCH (22:58)
[2019-02-22] MEDS: NICOTINE 21 MG/24 HR PATCH.TD24 TD SCH (22:59)
[2019-02-22] MEDS ORDERED: hydrALAzine 20 MG/ML, 1ML IVPush PRN (23:00)
[2019-02-22] MEDS ORDERED: LIDODERM 5% PATCH TD PRN (23:00)
[2019-02-22] MEDS ORDERED: DOCUSATE 100 MG CAPSULE PO PRN (23:00)
[2019-02-22] MEDS ORDERED: ONDANSETRON ODT 4 MG PO PRN (23:00)
[2019-02-22] MEDS ORDERED: ACETAMINOPHEN 325 MG TABLET PO PRN (23:00)
[2019-02-23] MEDS: TRAZODONE 100MG TABLET PO PRN ×2 (00:40→22:47)
[2019-02-23] MEDS ORDERED: ALBUTEROL/IPRATROPIUM 2.5MG/0.5MG, 3 ML ONE (00:53)
[2019-02-23] MEDS ORDERED: APIX5TAB4 PO (01:14)
[2019-02-23 02:40] VITALS: BP 107/63
[2019-02-23 05:02] LABS: BASOPHILS # (AUTO) 0.01 x10^3/uL (0-0.1); BASOPHILS % (AUTO) 0 % (0-1); EOSINOPHILS % (AUTO) 2 % (1-7); LYMPHOCYTES # (AUTO) 0.75 x10^3/uL (1-3.4); LYMPHOCYTES % (AUTO) 15 % (22-44); MD NO; MEAN CORPUSCULAR HEMOGLOBIN 34.5 pg (27.5-34.5); MEAN CORPUSCULAR HGB CONC 32.9 g/dL (33.2-36.2); MEAN CORPUSCULAR VOLUME 105.1 fL (81-97); MEAN PLATELET VOLUME 8.5 fL (7.4-10.4); MONOCYTES # (AUTO) 0.81 x10^3/uL (0.2-0.8); MONOCYTES % (AUTO) 16 % (2-9); NEUTROPHILS # (AUTO) 3.26 x10^3/uL (1.8-6.8); NEUTROPHILS % (AUTO) 66 % (42-75); PLATELET COUNT 197 x10^3/uL (130-400); RED BLOOD COUNT 3.05 x10^6/uL (4.38-5.82); RED CELL DISTRIBUTION WIDTH 15.7 % (9.4-14.8)
[2019-02-23 05:07] LABS: ANION GAP 4 mmol/L (5-15); CALCIUM 8.3 mg/dL (8.5-10.1); CHLORIDE 103 mmol/L (98-107); CREATININE 0.45 mg/dL (0.7-1.3)
[2019-02-23] MEDS: CARVEDILOL 3.125 MG TABLET PO SCH ×2 (05:57→16:41)
[2019-02-23 07:00] VITALS: BP 115/64
[2019-02-23] MEDS: ALBUTEROL/IPRATROPIUM 2.5MG/0.5MG, 3 ML NPPB SCH ×4 (07:00→20:53)
[2019-02-23] MEDS: OMEPRAZOLE 20 MG CAPSULE.DR PO SCH ×2 (08:39→20:21)
[2019-02-23] MEDS: LACTOBACILLUS CHEW TABLET PO SCH ×3 (08:39→20:21)
[2019-02-23] MEDS: AMOXICILLIN 500 MG CAPSULE PO SCH ×3 (08:39→20:21)
[2019-02-23] MEDS: DOXYCYCLINE 100MG CAP PO SCH ×2 (08:39→20:21)
[2019-02-23] MEDS: ENOXAPARIN 40 MG/0.4 ML SQ SCH ×2 (08:40→09:00)
[2019-02-23] MEDS ORDERED: GUAIFENESIN 200 MG TABLET ONE (10:08)
[2019-02-23] MEDS: GUAIFENESIN 200 MG TABLET PO SCH ×3 (10:21→20:21)
[2019-02-23 12:50] VITALS: BP 110/52
[2019-02-23 19:20] VITALS: BP 123/65
[2019-02-23] MEDS: NICOTINE 21 MG/24 HR PATCH.TD24 TD SCH (22:42)
[2019-02-24 01:00] VITALS: BP 122/70
[2019-02-24] MEDS: CARVEDILOL 3.125 MG TABLET PO SCH ×2 (05:18→19:12)
[2019-02-24] MEDS: GUAIFENESIN 200 MG TABLET PO SCH ×4 (05:18→21:00)
[2019-02-24 06:57] VITALS: BP 123/64
[2019-02-24] MEDS: ALBUTEROL/IPRATROPIUM 2.5MG/0.5MG, 3 ML NPPB SCH ×4 (07:00→19:45)
[2019-02-24] MEDS: LACTOBACILLUS CHEW TABLET PO SCH ×4 (08:47→21:00)
[2019-02-24] MEDS: AMOXICILLIN 500 MG CAPSULE PO SCH ×3 (08:49→21:48)
[2019-02-24] MEDS: DOXYCYCLINE 100MG CAP PO SCH ×3 (08:49→21:52)
[2019-02-24] MEDS: OMEPRAZOLE 20 MG CAPSULE.DR PO SCH ×2 (09:00→21:00)
[2019-02-24] MEDS: ENOXAPARIN 40 MG/0.4 ML SQ SCH (09:00)
[2019-02-24 14:00] VITALS: BP 123/74
[2019-02-24 19:12] VITALS: BP 133/73
[2019-02-24 20:23] VITALS: BP 125/63
[2019-02-24] MEDS: TRAZODONE 100MG TABLET PO PRN (21:52)
[2019-02-24] MEDS: NICOTINE 21 MG/24 HR PATCH.TD24 TD SCH (21:53)
[2019-02-25 00:34] VITALS: BP 132/69
[2019-02-25] MEDS: CARVEDILOL 3.125 MG TABLET PO SCH ×2 (06:00→17:14)
[2019-02-25] MEDS: GUAIFENESIN 200 MG TABLET PO SCH ×4 (06:00→21:00)
[2019-02-25 06:27] LABS: CHLORIDE 101 mmol/L (98-107)
[2019-02-25 06:34] LABS: ALANINE AMINOTRANSFERASE 18 U/L (12-78); ALBUMIN 2.9 g/dL (3.4-5.0); ALKALINE PHOSPHATASE 75 U/L (45-117); ANION GAP 3 mmol/L (5-15); BILIRUBIN,TOTAL 0.3 mg/dL (0.2-1.0); CALCIUM 8.9 mg/dL (8.5-10.1); CREATININE 0.59 mg/dL (0.7-1.3); TOTAL PROTEIN 6.7 g/dL (6.4-8.2)
[2019-02-25 07:15] VITALS: BP 168/68
[2019-02-25] MEDS: ALBUTEROL/IPRATROPIUM 2.5MG/0.5MG, 3 ML NPPB SCH (07:30)
[2019-02-25] MEDS ORDERED: ALBUTEROL/IPRATROPIUM 2.5MG/0.5MG, 3 ML NPPB PRN (08:30)
[2019-02-25] MEDS: OMEPRAZOLE 20 MG CAPSULE.DR PO SCH ×2 (09:08→21:08)
[2019-02-25] MEDS: LACTOBACILLUS CHEW TABLET PO SCH ×3 (09:08→21:08)
[2019-02-25] MEDS: ENOXAPARIN 40 MG/0.4 ML SQ SCH (09:09)
[2019-02-25 14:15] VITALS: BP 145/67
[2019-02-25 20:20] VITALS: BP 131/77
[2019-02-25] MEDS: DOXYCYCLINE 100MG TABLET PO SCH (21:08)
[2019-02-25] MEDS: AMOXICILLIN/CLAV 875-125MG TABLET PO SCH (21:08)
[2019-02-25] MEDS: NICOTINE 21 MG/24 HR PATCH.TD24 TD SCH (21:08)
[2019-02-25] MEDS: TRAZODONE 100MG TABLET PO PRN (21:19)
[2019-02-26 00:52] VITALS: BP 129/57
[2019-02-26 05:37] LABS: CHLORIDE 104 mmol/L (98-107)
[2019-02-26 05:42] LABS: ANION GAP 0 mmol/L (5-15); CALCIUM 8.7 mg/dL (8.5-10.1); CREATININE 0.56 mg/dL (0.7-1.3)
[2019-02-26] MEDS: GUAIFENESIN 200 MG TABLET PO SCH ×2 (06:00→11:00)
[2019-02-26] MEDS: CARVEDILOL 3.125 MG TABLET PO SCH (06:00)
[2019-02-26 06:09] VITALS: BP 100/57
[2019-02-26 07:10] VITALS: BP 110/65
[2019-02-26] MEDS: OMEPRAZOLE 20 MG CAPSULE.DR PO SCH (08:48)
[2019-02-26] MEDS: LACTOBACILLUS CHEW TABLET PO SCH (08:48)
[2019-02-26] MEDS: DOXYCYCLINE 100MG TABLET PO SCH (08:48)
[2019-02-26] MEDS: AMOXICILLIN/CLAV 875-125MG TABLET PO SCH (08:48)
[2019-02-26] MEDS: ENOXAPARIN 40 MG/0.4 ML SQ SCH (08:49)
[2019-02-26] MEDS ORDERED: GUAI200T3 PO (10:48)
[2019-02-26] MEDS ORDERED: TIOT18CA INH (10:48)
[2019-02-26] MEDS ORDERED: ALBU90AE INH (10:48)
[2019-02-26] MEDS ORDERED: AMOX1TAB12 PO (10:48)
[2019-02-26] MEDS ORDERED: BUDE10.2 INH (10:48)
[2019-02-26] MEDS ORDERED: PRED20TA PO (10:48)
[2019-02-26] MEDS ORDERED: DOXY100T PO (10:48)
[2019-02-26 13:45] VITALS: BP 101/61
== END 2019-02-26 14:42 | disposition home or self-care (01) | DRG 190 ==
LOC: ED 20:10 → EDIP 20:22 → 4WST 21:09 → DCLOUNGE 02-26 14:21
PROVIDERS: ADMIT Family Medicine; ATTEND Family Medicine
DX: J44.1 Chronic obstructive pulmonary disease with (acute) exacerbation (principal); E43 Unspecified severe protein-calorie malnutrition; I50.32 Chronic diastolic (congestive) heart failure; Z68.1 Body mass index [BMI] 19.9 or less, adult; E87.3 Alkalosis; D53.9 Nutritional anemia, unspecified; F10.10 Alcohol abuse, uncomplicated; F17.210 Nicotine dependence, cigarettes, uncomplicated; I11.0 Hypertensive heart disease with heart failure; I27.20 Pulmonary hypertension, unspecified; M19.90 Unspecified osteoarthritis, unspecified site; I48.91 Unspecified atrial fibrillation; K21.9 Gastro-esophageal reflux disease without esophagitis; N40.0 Benign prostatic hyperplasia without lower urinary tract symptoms; Z79.01 Long term (current) use of anticoagulants; Z82.49 Family history of ischemic heart disease and other diseases of the circulatory system; Z71.6 Tobacco abuse counseling; Z99.81 Dependence on supplemental oxygen; Z87.01 Personal history of pneumonia (recurrent)
CPT/HCPCS: 36415; 36600; 71045; 80048; 80053; 82803; 84484; 85025; 93005; 94640; 99285; G0378; J1650; J7620; J7512

== ENCOUNTER 2019-09-24 22:52 | Inpatient (IN) | payer MEDICARE, MEDICAID ==
[~2019-09-24] VITALS: Ht 177.8 cm; Wt 48.8 kg
[~2019-09-24 22:52] MED LIST changes: -ALBU6.7H INH; +ALBU6.7H8 INH; +ALBU90AE INH; +AMOX1TAB12 PO; +APIX5TAB4 PO; +BUDE10.2 INH; +GUAI200T37 PO; +PRED20TA PO; +TIOT18CA INH
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
[2019-09-24] MEDS ORDERED: SODIUM CHLORIDE FLUSH 10ML SYR IVF ONE (23:30)
[2019-09-24] MEDS ORDERED: ALBUTEROL/IPRATROPIUM 2.5MG/0.5MG, 3 ML NPPB ONE (23:30)
[2019-09-24 23:43] LABS: BASOPHILS # (AUTO) 0.03 x10^3/uL (0-0.1); BASOPHILS % (AUTO) 0 % (0-1); EOSINOPHILS # (AUTO) 0.11 x10^3/uL (0-0.4); EOSINOPHILS % (AUTO) 1 % (1-7); LYMPHOCYTES # (AUTO) 0.77 x10^3/uL (1-3.4); LYMPHOCYTES % (AUTO) 7 % (22-44); MD NO; MEAN CORPUSCULAR HEMOGLOBIN 32.4 pg (27.5-34.5); MEAN CORPUSCULAR HGB CONC 32.7 g/dL (33.2-36.2); MEAN CORPUSCULAR VOLUME 99.1 fL (81-97); MEAN PLATELET VOLUME 8.3 fL (7.4-10.4); MONOCYTES # (AUTO) 0.92 x10^3/uL (0.2-0.8); MONOCYTES % (AUTO) 9 % (2-9); NEUTROPHILS # (AUTO) 8.79 x10^3/uL (1.8-6.8); NEUTROPHILS % (AUTO) 83 % (42-75); PLATELET COUNT 298 x10^3/uL (130-400); RED BLOOD COUNT 3.69 x10^6/uL (4.38-5.82); RED CELL DISTRIBUTION WIDTH 17.1 % (9.4-14.8)
[2019-09-24 23:53] LABS: ALANINE AMINOTRANSFERASE 15 U/L (12-78); ANION GAP 7 mmol/L (5-15); CALCIUM 8.9 mg/dL (8.5-10.1); CHLORIDE 100 mmol/L (98-107); CREATININE 0.67 mg/dL (0.7-1.3)
[2019-09-24 23:58] LABS: ALKALINE PHOSPHATASE 81 U/L (45-117); BILIRUBIN,TOTAL 0.5 mg/dL (0.2-1.0); TOTAL PROTEIN 7.2 g/dL (6.4-8.2); TROPONIN I < 0.015 ng/mL (0.000-0.045)
[2019-09-25] MEDS ORDERED: MAGNESIUM SULFATE PMX 2GM/50ML 50 ML ONE (00:59)
[2019-09-25] MEDS ORDERED: MAGNESIUM SULFATE PMX 2GM/50ML 50 ML IV ONE (01:00)
--- NOTE | 2019-09-25 01:08 | NUR ---
Report given to Lianna. Patient to be transferred to room 372.
[2019-09-25] MEDS ORDERED: ALBUTEROL/IPRATROPIUM 2.5MG/0.5MG, 3 ML NPPB PRN (01:30)
[2019-09-25] MEDS ORDERED: ACETAMINOPHEN 325 MG TABLET PO PRN (01:30)
[2019-09-25] MEDS ORDERED: TEMAZEPAM 15 MG CAPSULE PO PRN (01:30)
[2019-09-25] MEDS: NICOTINE 14MG/24 HR PATCH.TD24 TD SCH ×2 (01:30→23:11)
[2019-09-25] MEDS ORDERED: ONDANSETRON 2MG/ML, 2ML IVPush PRN (01:30)
[2019-09-25 01:34] VITALS: BP 118/77
[2019-09-25] MEDS: GUAIFENESIN 200 MG TABLET PO SCH ×4 (02:30→22:35)
[2019-09-25] MEDS: methylPREDNISolone SOD SUCC 40 MG/ML IVPush SCH ×4 (02:30→22:44)
[2019-09-25] MEDS: CEFTRIAXONE PMX 1GM/50ML 50 ML IV SCH (04:01)
[2019-09-25] MEDS: METOPROLOL TARTRATE 25 MG TABLET PO SCH ×2 (05:36→17:38)
[2019-09-25] MEDS ORDERED: FUROSEMIDE 20 MG/2 ML IV SCH (07:30)
[2019-09-25 07:31] VITALS: BP 112/74
[2019-09-25] MEDS ORDERED: FAMOTIDINE 20 MG TABLET PO SCH (09:00)
[2019-09-25] MEDS ORDERED: FUROSEMIDE 20 MG TABLET PO SCH (09:00)
[2019-09-25] MEDS: POTASSIUM CHLORIDE 10 MEQ TABLET.ER PO SCH (10:54)
[2019-09-25] MEDS: DOXYCYCLINE 100MG TABLET PO SCH ×2 (10:54→22:36)
[2019-09-25] MEDS: APIXABAN 5 MG TABLET PO SCH ×2 (10:55→22:35)
[2019-09-25] MEDS: LACTOBACILLUS CHEW TABLET PO SCH ×3 (10:55→22:35)
[2019-09-25] MEDS: TAMSULOSIN 0.4 MG CAP.ER.24H PO SCH (10:55)
[2019-09-25 13:08] VITALS: BP 95/50
[2019-09-25 20:09] VITALS: BP 99/54
[2019-09-25] MEDS: FAMOTIDINE 20 MG TABLET PO SCH (22:35)
[2019-09-25] MEDS: TRAZODONE 100MG TABLET PO PRN (22:36)
[2019-09-26 02:02] VITALS: BP 114/64
[2019-09-26] MEDS: CEFTRIAXONE PMX 1GM/50ML 50 ML IV SCH (03:33)
[2019-09-26] MEDS: methylPREDNISolone SOD SUCC 40 MG/ML IVPush SCH ×4 (04:54→23:55)
[2019-09-26] MEDS: METOPROLOL TARTRATE 25 MG TABLET PO SCH ×2 (05:45→16:42)
[2019-09-26 06:05] LABS: MEAN CORPUSCULAR HGB CONC 31.8 g/dL (33.2-36.2); MEAN CORPUSCULAR VOLUME 100.7 fL (81-97); MEAN PLATELET VOLUME 8.5 fL (7.4-10.4); PLATELET COUNT 295 x10^3/uL (130-400); RED BLOOD COUNT 3.26 x10^6/uL (4.38-5.82); RED CELL DISTRIBUTION WIDTH 17.8 % (9.4-14.8)
[2019-09-26 06:16] LABS: ALBUMIN 2.4 g/dL (3.4-5.0); ANION GAP 5 mmol/L (5-15); CALCIUM 8.8 mg/dL (8.5-10.1); CHLORIDE 101 mmol/L (98-107)
[2019-09-26 06:20] LABS: ALANINE AMINOTRANSFERASE 15 U/L (12-78); ALKALINE PHOSPHATASE 65 U/L (45-117); BILIRUBIN,TOTAL 0.6 mg/dL (0.2-1.0); CREATININE 0.66 mg/dL (0.7-1.3); TOTAL PROTEIN 6.2 g/dL (6.4-8.2)
[2019-09-26 07:03] LABS: BASOPHILS # (AUTO) 0.01 x10^3/uL (0-0.1); BASOPHILS % (AUTO) 0 % (0-1); EOSINOPHILS % (AUTO) 0 % (1-7); LYMPHOCYTES # (AUTO) 0.35 x10^3/uL (1-3.4); LYMPHOCYTES % (AUTO) 2 % (22-44); MD SCAN; MONOCYTES # (AUTO) 0.27 x10^3/uL (0.2-0.8); MONOCYTES % (AUTO) 2 % (2-9); NEUTROPHILS # (AUTO) 15.63 x10^3/uL (1.8-6.8); NEUTROPHILS % (AUTO) 96 % (42-75)
[2019-09-26 07:41] VITALS: BP 99/57
[2019-09-26] MEDS: TAMSULOSIN 0.4 MG CAP.ER.24H PO SCH (09:58)
[2019-09-26] MEDS: POTASSIUM CHLORIDE 10 MEQ TABLET.ER PO SCH (09:58)
[2019-09-26] MEDS: GUAIFENESIN 200 MG TABLET PO SCH ×3 (09:58→21:16)
[2019-09-26] MEDS: APIXABAN 5 MG TABLET PO SCH (09:58)
[2019-09-26] MEDS: LACTOBACILLUS CHEW TABLET PO SCH ×3 (09:58→21:16)
[2019-09-26] MEDS: DOXYCYCLINE 100MG TABLET PO SCH ×2 (09:58→21:16)
[2019-09-26] MEDS: FUROSEMIDE 40 MG TABLET PO SCH (09:58)
[2019-09-26 14:00] VITALS: BP 141/58
[2019-09-26] MEDS ORDERED: MAGNESIUM SULFATE PMX 2GM/50ML 50 ML IV ONE (16:00)
[2019-09-26 16:50] VITALS: BP 106/59
[2019-09-26 20:00] VITALS: BP 112/61
[2019-09-26] MEDS: FAMOTIDINE 20 MG TABLET PO SCH (21:16)
[2019-09-26] MEDS: APIXABAN 2.5 MG TABLET PO SCH (21:16)
[2019-09-26] MEDS: TRAZODONE 100MG TABLET PO PRN (21:27)
[2019-09-26 22:23] VITALS: BP 112/61
[2019-09-26] MEDS: NICOTINE 14MG/24 HR PATCH.TD24 TD SCH (23:54)
[2019-09-27 02:00] VITALS: BP 105/62
[2019-09-27] MEDS: CEFTRIAXONE PMX 1GM/50ML 50 ML IV SCH (04:01)
[2019-09-27] MEDS: METOPROLOL TARTRATE 25 MG TABLET PO SCH (06:00)
[2019-09-27 06:12] LABS: MEAN CORPUSCULAR HEMOGLOBIN 32.3 pg (27.5-34.5); MEAN CORPUSCULAR HGB CONC 32.2 g/dL (33.2-36.2); MEAN CORPUSCULAR VOLUME 100.3 fL (81-97); MEAN PLATELET VOLUME 8.5 fL (7.4-10.4); PLATELET COUNT 275 x10^3/uL (130-400); RED CELL DISTRIBUTION WIDTH 17.6 % (9.4-14.8)
[2019-09-27 06:20] LABS: ANION GAP 4 mmol/L (5-15); CALCIUM 8.4 mg/dL (8.5-10.1); CHLORIDE 100 mmol/L (98-107)
[2019-09-27 06:23] LABS: CREATININE 0.67 mg/dL (0.7-1.3)
[2019-09-27 06:24] LABS: MD YES
[2019-09-27 06:28] LABS: <PLATELET ESTIMATE> ADEQUATE; <PLT MORPHOLOGY> NORMAL PLT MORPH; ANISOCYTOSIS 1+; MONOS#(MANUAL) 0.69 x10^3/uL (0.3-2.7); MONOS% (MANUAL) 3 % (2-9); SEG#(MANUAL) 22.21 x10^3/uL (1.8-6.8); SEGS% (MANUAL) 97 % (42-75)
[2019-09-27] MEDS: methylPREDNISolone SOD SUCC 40 MG/ML IVPush SCH (07:00)
[2019-09-27 07:29] VITALS: BP 119/69
[2019-09-27] MEDS: POTASSIUM CHLORIDE 10 MEQ TABLET.ER PO SCH (08:00)
[2019-09-27] MEDS: APIXABAN 2.5 MG TABLET PO SCH (08:21)
[2019-09-27] MEDS: DOXYCYCLINE 100MG TABLET PO SCH (08:21)
[2019-09-27] MEDS: TAMSULOSIN 0.4 MG CAP.ER.24H PO SCH (08:21)
[2019-09-27] MEDS: LACTOBACILLUS CHEW TABLET PO SCH (08:21)
[2019-09-27] MEDS: FUROSEMIDE 40 MG TABLET PO SCH (08:21)
[2019-09-27] MEDS: GUAIFENESIN 200 MG TABLET PO SCH (08:21)
[2019-09-27] MEDS ORDERED: AMOXICILLIN/CLAV 875-125MG TABLET PO SCH (09:00)
[2019-09-27] MEDS ORDERED: GUAIFENESIN 200 MG TABLET PO SCH (11:00)
[2019-09-27 14:25] VITALS: BP 108/60
== END 2019-09-27 15:59 | disposition left against medical advice (07) | DRG 291 ==
LOC: ED 23:54 → EDIP 09-25 00:32 → 3N 09-25 01:15
PROVIDERS: ADMIT Internal Medicine; ATTEND Internal Medicine
DX: I11.0 Hypertensive heart disease with heart failure (principal); E43 Unspecified severe protein-calorie malnutrition; I50.31 Acute diastolic (congestive) heart failure; J44.0 Chronic obstructive pulmonary disease with (acute) lower respiratory infection; I48.20 Chronic atrial fibrillation, unspecified; Z68.1 Body mass index [BMI] 19.9 or less, adult; J96.11 Chronic respiratory failure with hypoxia; J44.1 Chronic obstructive pulmonary disease with (acute) exacerbation; D72.829 Elevated white blood cell count, unspecified; F17.200 Nicotine dependence, unspecified, uncomplicated; I27.20 Pulmonary hypertension, unspecified; K21.9 Gastro-esophageal reflux disease without esophagitis; N40.0 Benign prostatic hyperplasia without lower urinary tract symptoms; Z82.49 Family history of ischemic heart disease and other diseases of the circulatory system; Z99.81 Dependence on supplemental oxygen; Z53.29 Procedure and treatment not carried out because of patient's decision for other reasons; J20.9 Acute bronchitis, unspecified
CPT/HCPCS: 36415; 36600; 71045; 80048; 80053; 82803; 83605; 83735; 83880; 84100; 84145; 84484; 85025; 87040; 93005; 96374; G0378; J0696; J2405; J7620; J1940; J2920; J3475; J7512

== ENCOUNTER 2019-09-27 15:39 | Inpatient (IN) | payer MEDICARE, MEDICAID ==
[~2019-09-27] VITALS: Ht 177.8 cm; Wt 48.9 kg
--- NOTE | 2019-09-27 15:45 | NUR ---
COUNSELOR EDUCATION PROFESSOR: PT LEFT INPT 372 TO GO "OUT AND SMOKE", AMA DONE PER FLOOR.
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
--- NOTE | 2019-09-27 17:05 | NUR ---
REPORT AND CARE TO BREAK VERITO ANAYA
--- NOTE | 2019-09-27 17:06 | NUR ---
TASK RN: THIS RN WENT IN ROOM, DISCUSSED WITH PT CHANGING INTO GOWN AND ON MONITOR, PT REFUSED BUT AWARE OF NEED FOR VITAL SIGNS.
--- NOTE | 2019-09-27 17:12 | NUR ---
TASK RN: JOE AT BEDSIDE.
[2019-09-27] MEDS ORDERED: TRAZODONE 100MG TABLET PO PRN (17:30)
[2019-09-27] MEDS ORDERED: LABETALOL 5MG/ML, 20ML IVPush PRN (17:30)
[2019-09-27] MEDS ORDERED: ACETAMINOPHEN 325 MG TABLET PO PRN (17:30)
[2019-09-27] MEDS ORDERED: ONDANSETRON 2MG/ML, 2ML IVPush PRN (17:30)
[2019-09-27] MEDS ORDERED: PROMETHAZINE 25 MG/ML, 1ML IM PRN (17:30)
[2019-09-27] MEDS: GUAIFENESIN 200 MG TABLET PO SCH ×2 (17:30→20:36)
--- NOTE | 2019-09-27 17:30 | NUR ---
TASK RN: PT AGREEABLE TO CHANGING INTO GOWN, PIV IN PLACE.
--- NOTE | 2019-09-27 17:31 | NUR ---
3 BAGS OF BELONGINGS WITH PT.
--- NOTE | 2019-09-27 17:41 | NUR ---
REPORT AND CARE BACK FROM BREAK RN JACLYN SELLERS. ROOM 340 RECEIVED, PHONE/VERBAL REPORT CALLED TO HUSAM SELLERS. PT READY FOR TRANSPORT TO FLOOR.
--- NOTE | 2019-09-27 17:48 | NUR ---
PT UPDATED ON POC. RESTING COMFORTABLY. DENIES NEED TO USE RESTROOM. VSS.
[2019-09-27 18:00] VITALS: BP 118/72
[2019-09-27] MEDS: ALBUTEROL/IPRATROPIUM 2.5MG/0.5MG, 3 ML HHN SCH (19:15)
[2019-09-27 20:00] VITALS: BP 128/72
[2019-09-28 01:28] VITALS: BP 116/61
[2019-09-28] MEDS: ALBUTEROL/IPRATROPIUM 2.5MG/0.5MG, 3 ML HHN SCH (01:30)
[2019-09-28] MEDS: GUAIFENESIN 200 MG TABLET PO SCH (05:32)
[2019-09-28 05:53] LABS: BASOPHILS % (AUTO) 0 % (0-1); EOSINOPHILS % (AUTO) 0 % (1-7); LYMPHOCYTES # (AUTO) 0.29 x10^3/uL (1-3.4); LYMPHOCYTES % (AUTO) 2 % (22-44); MD NO; MEAN CORPUSCULAR HEMOGLOBIN 32.7 pg (27.5-34.5); MEAN CORPUSCULAR HGB CONC 32.4 g/dL (33.2-36.2); MEAN PLATELET VOLUME 8.2 fL (7.4-10.4); MONOCYTES # (AUTO) 0.76 x10^3/uL (0.2-0.8); MONOCYTES % (AUTO) 5 % (2-9); NEUTROPHILS # (AUTO) 15.83 x10^3/uL (1.8-6.8); NEUTROPHILS % (AUTO) 94 % (42-75); PLATELET COUNT 288 x10^3/uL (130-400); RED BLOOD COUNT 3.32 x10^6/uL (4.38-5.82); RED CELL DISTRIBUTION WIDTH 17.6 % (9.4-14.8)
[2019-09-28 06:02] LABS: ALBUMIN 2.6 g/dL (3.4-5.0); ANION GAP 4 mmol/L (5-15); CALCIUM 9.1 mg/dL (8.5-10.1); CHLORIDE 100 mmol/L (98-107)
[2019-09-28 06:07] LABS: ALANINE AMINOTRANSFERASE 21 U/L (12-78); ALKALINE PHOSPHATASE 60 U/L (45-117); BILIRUBIN,TOTAL 0.5 mg/dL (0.2-1.0); CREATININE 0.69 mg/dL (0.7-1.3); TOTAL PROTEIN 6.4 g/dL (6.4-8.2)
[2019-09-28 07:26] VITALS: BP 117/43
[2019-09-28] MEDS ORDERED: METOPROLOL TARTRATE 25 MG TABLET PO SCH (08:00)
[2019-09-28] MEDS ORDERED: APIXABAN 5 MG TABLET PO SCH (09:00)
[2019-09-28] MEDS ORDERED: AZITHROMYCIN 500 MG TABLET PO SCH (09:00)
[2019-09-28 13:31] VITALS: BP 123/61
== END 2019-09-28 16:22 | disposition home or self-care (01) | DRG 190 ==
LOC: ED 16:58 → EDIP 17:08 → 3N 17:55
PROVIDERS: ADMIT Internal Medicine; ATTEND Internal Medicine
DX: J44.1 Chronic obstructive pulmonary disease with (acute) exacerbation (principal); E43 Unspecified severe protein-calorie malnutrition; J96.11 Chronic respiratory failure with hypoxia; I48.20 Chronic atrial fibrillation, unspecified; E87.1 Hypo-osmolality and hyponatremia; Z68.1 Body mass index [BMI] 19.9 or less, adult; D53.9 Nutritional anemia, unspecified; I11.0 Hypertensive heart disease with heart failure; I27.20 Pulmonary hypertension, unspecified; I50.9 Heart failure, unspecified; J20.9 Acute bronchitis, unspecified; F10.10 Alcohol abuse, uncomplicated; Y90.9 Presence of alcohol in blood, level not specified; D50.9 Iron deficiency anemia, unspecified; K21.9 Gastro-esophageal reflux disease without esophagitis; J44.0 Chronic obstructive pulmonary disease with (acute) lower respiratory infection; N40.0 Benign prostatic hyperplasia without lower urinary tract symptoms; T38.0X5A Adverse effect of glucocorticoids and synthetic analogues, initial encounter; Z59.0 Homelessness; Z63.8 Other specified problems related to primary support group; Z72.0 Tobacco use; Z82.49 Family history of ischemic heart disease and other diseases of the circulatory system; Z99.81 Dependence on supplemental oxygen; Z79.51 Long term (current) use of inhaled steroids; Z53.29 Procedure and treatment not carried out because of patient's decision for other reasons
CPT/HCPCS: 36415; 80053; 85025; 93005; 94640; 99285; G0378; J7620

== ENCOUNTER 2019-10-07 04:39 | Inpatient (IN) | payer MEDICARE, MEDICAID ==
[~2019-10-07] VITALS: Ht 177.8 cm; Wt 52.5 kg
[~2019-10-07 04:39] MED LIST changes: -TRAZ-137 PO; +TRAZ-175 PO
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
[2019-10-07] MEDS ORDERED: ALBUTEROL/IPRATROPIUM 2.5MG/0.5MG, 3 ML NPPB ONE (05:00)
--- NOTE | 2019-10-07 05:04 | NUR ---
Patient refusing temperature. Administered meds per mar. Lab in room. Patient refusing labs.
--- NOTE | 2019-10-07 05:06 | NUR ---
RT finished breathing tx. Patient states the breathing tx helped.
--- NOTE | 2019-10-07 05:57 | NUR ---
Patient states he lives at [address] [place] [address] Inn
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
--- NOTE | 2019-10-07 06:48 | NUR ---
report received from faisal gomez.
--- NOTE | 2019-10-07 07:33 | NUR ---
PT AMB TO BR WITH STEADY GAIT.
[2019-10-07] MEDS ORDERED: CHLORDIAZEPOXIDE 25 MG CAPSULE PO PRN ×2 (08:00)
[2019-10-07] MEDS ORDERED: morphine SULFATE 10 MG/ML, 1ML IVPush PRN (08:00)
[2019-10-07] MEDS ORDERED: ACETAMINOPHEN 325 MG TABLET PO PRN (08:00)
[2019-10-07] MEDS ORDERED: CHLORDIAZEPOXIDE 10 MG CAPSULE PO PRN (08:00)
[2019-10-07] MEDS ORDERED: methylPREDNISolone SOD SUCC 40 MG/ML ONE (08:10)
[2019-10-07] MEDS ORDERED: ENOXAPARIN 40 MG/0.4 ML ONE (08:10)
[2019-10-07 08:19] LABS: MEAN CORPUSCULAR HEMOGLOBIN 32.4 pg (27.5-34.5); MEAN CORPUSCULAR HGB CONC 32.3 g/dL (33.2-36.2); MEAN CORPUSCULAR VOLUME 100.2 fL (81-97); PLATELET COUNT 271 x10^3/uL (130-400); RED CELL DISTRIBUTION WIDTH 17.3 % (9.4-14.8)
[2019-10-07] MEDS: ENOXAPARIN 40 MG/0.4 ML SQ SCH (08:26)
[2019-10-07] MEDS: methylPREDNISolone SOD SUCC 40 MG/ML IV SCH ×2 (08:26→20:05)
--- NOTE | 2019-10-07 08:29 | NUR ---
pt medicated per emar. pt tolerated well.
[2019-10-07 08:34] LABS: MD YES
[2019-10-07 08:35] LABS: ALANINE AMINOTRANSFERASE 17 U/L (12-78); ALBUMIN 2.7 g/dL (3.4-5.0); CALCIUM 8.3 mg/dL (8.5-10.1)
--- NOTE | 2019-10-07 08:36 | NUR ---
report given to floridalma gomez. all questions answered.
[2019-10-07 08:37] LABS: MONOS#(MANUAL) 0.11 x10^3/uL (0.3-2.7); MONOS% (MANUAL) 1 % (2-9); SEG#(MANUAL) 10.79 x10^3/uL (1.8-6.8); SEGS% (MANUAL) 99 % (42-75)
[2019-10-07 08:38] LABS: <PLATELET ESTIMATE> ADEQUATE; <PLT MORPHOLOGY> NORMAL PLT MORPH; ANISOCYTOSIS 1+
[2019-10-07 08:40] LABS: ALKALINE PHOSPHATASE 86 U/L (45-117); BILIRUBIN,TOTAL 0.4 mg/dL (0.2-1.0); CREATININE 0.68 mg/dL (0.7-1.3); TOTAL PROTEIN 6.7 g/dL (6.4-8.2)
[2019-10-07 08:48] LABS: ANION GAP 8 mmol/L (5-15); CHLORIDE 104 mmol/L (98-107)
[2019-10-07] MEDS ORDERED: AZITHROMYCIN 500 MG TABLET PO SCH (09:00)
[2019-10-07] MEDS: TEMPLATE NON-FORMULARY MED. (Budesonide/Formoterol Fumarate (Symbicort 160-4.5 Mcg Inhaler INH SCH ×2 (09:00→21:00)
[2019-10-07] MEDS ORDERED: FUROSEMIDE 40 MG/4 ML IV ONE (09:30)
[2019-10-07] MEDS: THIAMINE 100MG TABLET PO SCH (09:49)
[2019-10-07] MEDS: DOXYCYCLINE 100MG TABLET PO SCH ×2 (09:49→20:05)
[2019-10-07] MEDS: FOLIC ACID 1 MG TABLET PO SCH (09:50)
[2019-10-07 13:44] VITALS: BP 102/66
[2019-10-07] MEDS: ALBUTEROL/IPRATROPIUM 2.5MG/0.5MG, 3 ML NPPB SCH ×2 (14:16→21:47)
[2019-10-07 20:40] VITALS: BP 97/66
[2019-10-07] MEDS: HYDROcodone/APAP 10/325 MG TABLET PO PRN (21:21)
[2019-10-07] MEDS: TRAZODONE 100MG TABLET PO PRN (21:21)
[2019-10-07 21:26] VITALS: BP 110/57
[2019-10-07] MEDS: BUDESONIDE 0.5 MG/2 ML INHA NPPB SCH (21:47)
[2019-10-08 02:50] VITALS: BP 109/64
[2019-10-08] MEDS: ALBUTEROL/IPRATROPIUM 2.5MG/0.5MG, 3 ML NPPB SCH ×4 (03:00→21:00)
[2019-10-08 05:09] LABS: ALANINE AMINOTRANSFERASE 16 U/L (12-78); ALBUMIN 2.4 g/dL (3.4-5.0); ANION GAP 6 mmol/L (5-15); CALCIUM 8.4 mg/dL (8.5-10.1); CHLORIDE 105 mmol/L (98-107)
[2019-10-08 05:12] LABS: ALKALINE PHOSPHATASE 76 U/L (45-117); BILIRUBIN,TOTAL 0.3 mg/dL (0.2-1.0); TOTAL PROTEIN 6.5 g/dL (6.4-8.2)
[2019-10-08] MEDS: ENOXAPARIN 40 MG/0.4 ML SQ SCH ×2 (08:00→08:28)
[2019-10-08 08:13] VITALS: BP 132/66
[2019-10-08] MEDS: FUROSEMIDE 40 MG/4 ML IV SCH (08:27)
[2019-10-08] MEDS: TEMPLATE NON-FORMULARY MED. (Budesonide/Formoterol Fumarate (Symbicort 160-4.5 Mcg Inhaler INH SCH ×2 (08:27→21:00)
[2019-10-08] MEDS: DOXYCYCLINE 100MG TABLET PO SCH ×2 (08:28→19:52)
[2019-10-08] MEDS: THIAMINE 100MG TABLET PO SCH (08:28)
[2019-10-08] MEDS: FOLIC ACID 1 MG TABLET PO SCH (08:28)
[2019-10-08] MEDS: methylPREDNISolone SOD SUCC 40 MG/ML IV SCH ×2 (08:28→19:52)
[2019-10-08] MEDS: ONDANSETRON 2MG/ML, 2ML IVPush PRN (09:08)
[2019-10-08] MEDS: BUDESONIDE 0.5 MG/2 ML INHA NPPB SCH ×2 (09:22→21:00)
[2019-10-08 13:28] VITALS: BP 96/56
[2019-10-08] MEDS: PANTOPRAZOLE 20MG TABLET PO SCH (17:06)
[2019-10-08] MEDS ORDERED: OMNIPAQUE 350 MG/ML, 100ML BOTTLE ONE (18:00)
[2019-10-08 19:34] VITALS: BP 107/57
[2019-10-08] MEDS: TRAZODONE 100MG TABLET PO PRN (19:52)
[2019-10-08] MEDS: HYDROcodone/APAP 10/325 MG TABLET PO PRN (19:53)
[2019-10-09 00:17] VITALS: BP 96/57
[2019-10-09] MEDS: ALBUTEROL/IPRATROPIUM 2.5MG/0.5MG, 3 ML NPPB SCH ×4 (03:00→20:23)
[2019-10-09 05:18] LABS: ANION GAP 2 mmol/L (5-15); CALCIUM 8.7 mg/dL (8.5-10.1); CHLORIDE 102 mmol/L (98-107)
[2019-10-09 05:42] LABS: MEAN CORPUSCULAR HEMOGLOBIN 32.4 pg (27.5-34.5); MEAN CORPUSCULAR HGB CONC 32.4 g/dL (33.2-36.2); MEAN CORPUSCULAR VOLUME 100.3 fL (81-97); MEAN PLATELET VOLUME 8.4 fL (7.4-10.4); PLATELET COUNT 243 x10^3/uL (130-400); RED CELL DISTRIBUTION WIDTH 17.5 % (9.4-14.8)
[2019-10-09 05:46] LABS: CREATININE 0.64 mg/dL (0.7-1.3)
[2019-10-09] MEDS: PANTOPRAZOLE 20MG TABLET PO SCH ×2 (05:48→15:58)
[2019-10-09 06:28] LABS: MD YES
[2019-10-09 06:30] LABS: ANISOCYTOSIS 1+; MONOS#(MANUAL) 0.78 x10^3/uL (0.3-2.7); MONOS% (MANUAL) 4 % (2-9); SEG#(MANUAL) 18.72 x10^3/uL (1.8-6.8); SEGS% (MANUAL) 96 % (42-75)
[2019-10-09 06:31] LABS: <PLATELET ESTIMATE> ADEQUATE; <PLT MORPHOLOGY> NORMAL PLT MORPH
[2019-10-09] MEDS: BUDESONIDE 0.5 MG/2 ML INHA NPPB SCH ×2 (06:50→20:23)
[2019-10-09 07:45] VITALS: BP 106/72
[2019-10-09] MEDS: ONDANSETRON 2MG/ML, 2ML IVPush PRN (07:51)
[2019-10-09] MEDS: TEMPLATE NON-FORMULARY MED. (Budesonide/Formoterol Fumarate (Symbicort 160-4.5 Mcg Inhaler INH SCH ×2 (07:52→21:00)
[2019-10-09] MEDS: DOXYCYCLINE 100MG TABLET PO SCH ×2 (07:52→21:04)
[2019-10-09] MEDS: FUROSEMIDE 40 MG/4 ML IV SCH (07:52)
[2019-10-09] MEDS: FOLIC ACID 1 MG TABLET PO SCH (07:52)
[2019-10-09] MEDS: ENOXAPARIN 40 MG/0.4 ML SQ SCH (07:52)
[2019-10-09] MEDS: methylPREDNISolone SOD SUCC 40 MG/ML IV SCH ×2 (07:52→21:04)
[2019-10-09] MEDS: THIAMINE 100MG TABLET PO SCH (07:52)
[2019-10-09] MEDS: HYDROcodone/APAP 10/325 MG TABLET PO PRN ×2 (12:04→21:05)
[2019-10-09 13:39] VITALS: BP 100/60
[2019-10-09 20:09] VITALS: BP 96/55
[2019-10-09] MEDS: TRAZODONE 100MG TABLET PO PRN (21:04)
[2019-10-10 02:18] VITALS: BP 107/66
[2019-10-10] MEDS: ONDANSETRON 2MG/ML, 2ML IVPush PRN ×2 (02:20→09:49)
[2019-10-10] MEDS: ALBUTEROL/IPRATROPIUM 2.5MG/0.5MG, 3 ML NPPB SCH ×4 (03:00→20:45)
[2019-10-10] MEDS: PANTOPRAZOLE 20MG TABLET PO SCH ×2 (06:04→16:53)
[2019-10-10] MEDS: ENOXAPARIN 40 MG/0.4 ML SQ SCH (08:00)
[2019-10-10] MEDS: TEMPLATE NON-FORMULARY MED. (Budesonide/Formoterol Fumarate (Symbicort 160-4.5 Mcg Inhaler INH SCH ×2 (09:00→19:44)
[2019-10-10] MEDS: THIAMINE 100MG TABLET PO SCH (09:00)
[2019-10-10] MEDS: DOXYCYCLINE 100MG TABLET PO SCH ×2 (09:00→20:42)
[2019-10-10] MEDS: FUROSEMIDE 40 MG/4 ML IV SCH (09:00)
[2019-10-10] MEDS: FOLIC ACID 1 MG TABLET PO SCH (09:00)
[2019-10-10] MEDS: HYDROcodone/APAP 10/325 MG TABLET PO PRN ×2 (09:49→20:42)
[2019-10-10] MEDS: BUDESONIDE 0.5 MG/2 ML INHA NPPB SCH ×2 (10:15→20:45)
[2019-10-10 13:50] VITALS: BP 106/63
[2019-10-10 19:03] VITALS: BP 103/63
[2019-10-10] MEDS: TRAZODONE 100MG TABLET PO PRN (20:42)
[2019-10-11] MEDS: ALBUTEROL/IPRATROPIUM 2.5MG/0.5MG, 3 ML NPPB SCH ×2 (03:00→21:07)
[2019-10-11 03:27] VITALS: BP 91/65
[2019-10-11] MEDS: PANTOPRAZOLE 20MG TABLET PO SCH ×2 (05:23→15:48)
[2019-10-11 06:32] VITALS: BP 104/76
[2019-10-11] MEDS: TEMPLATE NON-FORMULARY MED. (Budesonide/Formoterol Fumarate (Symbicort 160-4.5 Mcg Inhaler INH SCH ×2 (07:51→21:00)
[2019-10-11] MEDS: ENOXAPARIN 40 MG/0.4 ML SQ SCH (07:51)
[2019-10-11] MEDS: BUDESONIDE 0.5 MG/2 ML INHA NPPB SCH ×2 (09:20→21:00)
[2019-10-11] MEDS: FUROSEMIDE 40 MG/4 ML IV SCH ×2 (09:33→10:38)
[2019-10-11] MEDS: DOXYCYCLINE 100MG TABLET PO SCH ×2 (09:34→21:21)
[2019-10-11] MEDS: ONDANSETRON 2MG/ML, 2ML IVPush PRN ×3 (09:34→21:20)
[2019-10-11] MEDS: HYDROcodone/APAP 10/325 MG TABLET PO PRN ×3 (09:34→21:50)
[2019-10-11] MEDS: GUAIFENESIN ER 600 MG TABLET PO SCH ×2 (09:34→21:21)
[2019-10-11] MEDS: FOLIC ACID 1 MG TABLET PO SCH (09:35)
[2019-10-11] MEDS: THIAMINE 100MG TABLET PO SCH (09:35)
[2019-10-11 18:42] VITALS: BP 108/69
[2019-10-11] MEDS: TRAZODONE 100MG TABLET PO PRN (21:21)
[2019-10-12 02:37] VITALS: BP 101/65
[2019-10-12] MEDS: PANTOPRAZOLE 20MG TABLET PO SCH ×2 (05:43→16:16)
[2019-10-12 06:58] VITALS: BP 98/62
[2019-10-12] MEDS: ALBUTEROL/IPRATROPIUM 2.5MG/0.5MG, 3 ML NPPB SCH ×2 (07:15→07:54)
[2019-10-12] MEDS: BUDESONIDE 0.5 MG/2 ML INHA NPPB SCH ×2 (07:15→07:54)
[2019-10-12] MEDS: FUROSEMIDE 40 MG/4 ML IV SCH (07:53)
[2019-10-12] MEDS: ONDANSETRON 2MG/ML, 2ML IVPush PRN ×2 (07:53→19:53)
[2019-10-12] MEDS: FOLIC ACID 1 MG TABLET PO SCH (07:54)
[2019-10-12] MEDS: GUAIFENESIN ER 600 MG TABLET PO SCH ×2 (07:54→19:54)
[2019-10-12] MEDS: THIAMINE 100MG TABLET PO SCH (07:54)
[2019-10-12] MEDS: TEMPLATE NON-FORMULARY MED. (Budesonide/Formoterol Fumarate (Symbicort 160-4.5 Mcg Inhaler INH SCH ×2 (07:54→19:52)
[2019-10-12] MEDS: ENOXAPARIN 40 MG/0.4 ML SQ SCH (07:55)
[2019-10-12 12:26] VITALS: BP 100/64
[2019-10-12] MEDS: HYDROcodone/APAP 10/325 MG TABLET PO PRN (19:53)
[2019-10-12] MEDS: TRAZODONE 100MG TABLET PO PRN (19:53)
[2019-10-12 19:57] VITALS: BP 111/66
[2019-10-12] MEDS: CEFTRIAXONE PMX 1GM/50ML 50 ML IV SCH (21:39)
[2019-10-13 02:11] VITALS: BP 106/68
[2019-10-13] MEDS: ONDANSETRON 2MG/ML, 2ML IVPush PRN ×2 (02:50→13:30)
[2019-10-13] MEDS: HYDROcodone/APAP 10/325 MG TABLET PO PRN ×2 (02:51→21:02)
[2019-10-13 05:33] LABS: ALBUMIN 2.2 g/dL (3.4-5.0); CALCIUM 8.3 mg/dL (8.5-10.1)
[2019-10-13 05:36] LABS: ALANINE AMINOTRANSFERASE 19 U/L (12-78); ALKALINE PHOSPHATASE 63 U/L (45-117); BILIRUBIN,TOTAL 0.3 mg/dL (0.2-1.0); CREATININE 0.65 mg/dL (0.7-1.3); TOTAL PROTEIN 5.6 g/dL (6.4-8.2)
[2019-10-13 05:39] LABS: BASOPHILS # (AUTO) 0.03 x10^3/uL (0-0.1); BASOPHILS % (AUTO) 0 % (0-1); EOSINOPHILS # (AUTO) 0.06 x10^3/uL (0-0.4); EOSINOPHILS % (AUTO) 1 % (1-7); LYMPHOCYTES # (AUTO) 0.71 x10^3/uL (1-3.4); LYMPHOCYTES % (AUTO) 9 % (22-44); MD NO; MEAN CORPUSCULAR HEMOGLOBIN 31.8 pg (27.5-34.5); MEAN CORPUSCULAR VOLUME 99.4 fL (81-97); MEAN PLATELET VOLUME 8.4 fL (7.4-10.4); MONOCYTES # (AUTO) 0.69 x10^3/uL (0.2-0.8); MONOCYTES % (AUTO) 8 % (2-9); NEUTROPHILS # (AUTO) 6.82 x10^3/uL (1.8-6.8); NEUTROPHILS % (AUTO) 82 % (42-75); PLATELET COUNT 216 x10^3/uL (130-400); RED BLOOD COUNT 3.12 x10^6/uL (4.38-5.82); RED CELL DISTRIBUTION WIDTH 17.5 % (9.4-14.8)
[2019-10-13] MEDS: PANTOPRAZOLE 20MG TABLET PO SCH ×2 (05:46→16:54)
[2019-10-13 05:52] LABS: ANION GAP 3 mmol/L (5-15); CHLORIDE 97 mmol/L (98-107)
[2019-10-13] MEDS: BUDESONIDE 0.5 MG/2 ML INHA NPPB SCH ×2 (06:35→20:36)
[2019-10-13] MEDS: ALBUTEROL/IPRATROPIUM 2.5MG/0.5MG, 3 ML NPPB SCH ×2 (06:35→20:36)
[2019-10-13 06:52] VITALS: BP 105/56
[2019-10-13] MEDS: FUROSEMIDE 40 MG/4 ML IV SCH (08:10)
[2019-10-13] MEDS: TEMPLATE NON-FORMULARY MED. (Budesonide/Formoterol Fumarate (Symbicort 160-4.5 Mcg Inhaler INH SCH ×2 (08:11→19:59)
[2019-10-13] MEDS: THIAMINE 100MG TABLET PO SCH (08:11)
[2019-10-13] MEDS: ENOXAPARIN 40 MG/0.4 ML SQ SCH (08:11)
[2019-10-13] MEDS: FOLIC ACID 1 MG TABLET PO SCH (08:11)
[2019-10-13] MEDS: GUAIFENESIN ER 600 MG TABLET PO SCH ×2 (08:11→19:59)
[2019-10-13] MEDS ORDERED: MAGNESIUM SULFATE PMX 4GM/100M 100 ML IV ONE (14:00)
[2019-10-13 15:31] VITALS: BP 110/68
[2019-10-13 18:48] VITALS: BP 104/60
[2019-10-13] MEDS: CEFTRIAXONE PMX 1GM/50ML 50 ML IV SCH ×2 (19:59→21:01)
[2019-10-13] MEDS: TRAZODONE 100MG TABLET PO PRN (21:02)
[2019-10-14 00:57] VITALS: BP 111/63
[2019-10-14] MEDS: ONDANSETRON 2MG/ML, 2ML IVPush PRN (05:27)
[2019-10-14] MEDS: PANTOPRAZOLE 20MG TABLET PO SCH (05:36)
[2019-10-14] MEDS: HYDROcodone/APAP 10/325 MG TABLET PO PRN (05:37)
[2019-10-14 06:15] LABS: ANION GAP 3 mmol/L (5-15); CALCIUM 8.4 mg/dL (8.5-10.1); CHLORIDE 94 mmol/L (98-107); CREATININE 0.63 mg/dL (0.7-1.3)
[2019-10-14] MEDS: ENOXAPARIN 40 MG/0.4 ML SQ SCH (08:52)
[2019-10-14] MEDS: GUAIFENESIN ER 600 MG TABLET PO SCH (08:53)
[2019-10-14] MEDS: FOLIC ACID 1 MG TABLET PO SCH (08:54)
[2019-10-14] MEDS: THIAMINE 100MG TABLET PO SCH (08:54)
[2019-10-14] MEDS: ALBUTEROL/IPRATROPIUM 2.5MG/0.5MG, 3 ML NPPB SCH (08:55)
[2019-10-14] MEDS: BUDESONIDE 0.5 MG/2 ML INHA NPPB SCH (08:55)
[2019-10-14] MEDS ORDERED: FUROSEMIDE 20 MG TABLET PO SCH (09:00)
[2019-10-14] MEDS: TEMPLATE NON-FORMULARY MED. (Budesonide/Formoterol Fumarate (Symbicort 160-4.5 Mcg Inhaler INH SCH (09:00)
[2019-10-14] MEDS ORDERED: THIA100T67 PO (11:04)
[2019-10-14] MEDS ORDERED: FOLI-17 PO (11:04)
[2019-10-14] MEDS ORDERED: PRED10TA PO ×2 (11:04)
[2019-10-14] MEDS ORDERED: CEFD300C37 PO ×2 (11:04)
[2019-10-17] MEDS ORDERED: PRED10TA PO (14:36)
[2019-10-17] MEDS ORDERED: TIOT18CA INH (14:36)
[2019-10-17] MEDS ORDERED: ALBU90AE INH (14:36)
[2019-10-17] MEDS ORDERED: BUDE10.2 INH (14:36)
[2019-10-17] MEDS ORDERED: CEFD300C37 PO (14:36)
== END 2019-10-14 13:09 | disposition left against medical advice (07) | DRG 871 ==
LOC: ED 06:04 → EDIP 07:35 → 3N 09:13
PROVIDERS: ADMIT Internal Medicine Infectious Disease; ATTEND Internal Medicine Infectious Disease
DX: A41.9 Sepsis, unspecified organism (principal); J13 Pneumonia due to Streptococcus pneumoniae; I50.31 Acute diastolic (congestive) heart failure; J96.21 Acute and chronic respiratory failure with hypoxia; E43 Unspecified severe protein-calorie malnutrition; Z68.1 Body mass index [BMI] 19.9 or less, adult; E87.2 Acidosis; J90 Pleural effusion, not elsewhere classified; J98.11 Atelectasis; I11.0 Hypertensive heart disease with heart failure; F10.20 Alcohol dependence, uncomplicated; I48.91 Unspecified atrial fibrillation; E83.42 Hypomagnesemia; F17.200 Nicotine dependence, unspecified, uncomplicated; I50.810 Right heart failure, unspecified; J43.9 Emphysema, unspecified; N40.0 Benign prostatic hyperplasia without lower urinary tract symptoms; Z59.0 Homelessness; Z82.49 Family history of ischemic heart disease and other diseases of the circulatory system; Z91.19 Patient's noncompliance with other medical treatment and regimen; Z99.81 Dependence on supplemental oxygen; Z53.29 Procedure and treatment not carried out because of patient's decision for other reasons
CPT/HCPCS: 36415; 71045; 71275; 74220; 80048; 80053; 82607; 83735; 83880; 84100; 84145; 84443; 85025; 85379; 87070; 87077; 87181; 87184; 87205; 93005; 93308; 93321; 93325; 94640; 96372; 99285; G0378; J0696; J1650; J1940; J2405; J7620; J7626; Q9967; J2920; J3475; J7512

== ENCOUNTER 2019-11-26 03:38 | Inpatient (IN) | payer MEDICARE, MEDICAID ==
[~2019-11-26] VITALS: Ht 177.8 cm; Wt 56.6 kg
[~2019-11-26 03:38] MED LIST changes: +ACET325T26 PO; +APIX2.5T PO; +FOLI-17 PO; +MULT-484 PO; +PRED10TA PO; +THIA100T67 PO
--- NOTE | 2019-11-26 03:45 | NUR ---
Patient BIB [facility] c/o SOB since today. Per EMS, patient was 81% on RA, RR 30. Patient has a hx of COPD, CHF, and afib. Patient is supposed to be on 3L of O2 at home but has been without it for two weeks. Patient has also been non-compliant with rx meds. EMS admin 1 albuterol, 1 duoneb, and 4lpm O2 which increased patient's SPO2 to 95%. Patient has labored breathing with retractions. He speaks in 2-3 word sentences. Skin pale, warm, dry.
[2019-11-26] MEDS ORDERED: methylPREDNISolone SOD SUCC 125 MG/2 ML ONE (03:55)
[2019-11-26] MEDS ORDERED: ALBUTEROL/IPRATROPIUM 2.5MG/0.5MG, 3 ML ONE (03:59)
[2019-11-26] MEDS ORDERED: SODIUM CHLORIDE FLUSH 10ML SYR IVF ONE (04:00)
[2019-11-26] MEDS ORDERED: SODIUM CHLORIDE 0.9% 1,000ML IVBOLUS ONE (04:00)
[2019-11-26] MEDS ORDERED: ALBUTEROL/IPRATROPIUM 2.5MG/0.5MG, 3 ML NPPB ONE (04:00)
[2019-11-26] MEDS ORDERED: methylPREDNISolone SOD SUCC 125 MG/2 ML IV ONE (04:00)
--- NOTE | 2019-11-26 04:06 | NUR ---
RT in room
[2019-11-26] MEDS ORDERED: AZITHROMYCIN 500 MG in SODIUM CHLORIDE 0.9% 250 ML IVPB ONE (05:00)
[2019-11-26] MEDS ORDERED: CEFTRIAXONE PMX 1GM/50ML 50 ML IVPB ONE (05:00)
[2019-11-26 05:08] LABS: BASOPHILS # (AUTO) 0.06 x10^3/uL (0-0.1); BASOPHILS % (AUTO) 1 % (0-1); EOSINOPHILS % (AUTO) 1 % (1-7); LYMPHOCYTES # (AUTO) 1.59 x10^3/uL (1-3.4); LYMPHOCYTES % (AUTO) 17 % (22-44); MD NO; MEAN CORPUSCULAR HEMOGLOBIN 30.9 pg (27.5-34.5); MEAN CORPUSCULAR HGB CONC 32.5 g/dL (33.2-36.2); MEAN PLATELET VOLUME 8.2 fL (7.4-10.4); MONOCYTES # (AUTO) 1.44 x10^3/uL (0.2-0.8); MONOCYTES % (AUTO) 15 % (2-9); NEUTROPHILS # (AUTO) 6.27 x10^3/uL (1.8-6.8); NEUTROPHILS % (AUTO) 66 % (42-75); PLATELET COUNT 348 x10^3/uL (130-400); RED BLOOD COUNT 3.67 x10^6/uL (4.38-5.82); RED CELL DISTRIBUTION WIDTH 18.1 % (9.4-14.8)
[2019-11-26 05:13] LABS: CHLORIDE 104 mmol/L (98-107)
[2019-11-26] MEDS ORDERED: CEFTRIAXONE PMX 1GM/50ML 50 ML ONE (05:19)
[2019-11-26 05:22] LABS: ALANINE AMINOTRANSFERASE 26 U/L (12-78); ALBUMIN 2.8 g/dL (3.4-5.0); ALKALINE PHOSPHATASE 73 U/L (45-117); ANION GAP 8 mmol/L (5-15); BILIRUBIN,TOTAL 0.6 mg/dL (0.2-1.0); CALCIUM 8.4 mg/dL (8.5-10.1); CREATININE 0.62 mg/dL (0.7-1.3); TOTAL PROTEIN 6.3 g/dL (6.4-8.2); TROPONIN I < 0.015 ng/mL (0.000-0.045)
--- NOTE | 2019-11-26 06:57 | NUR ---
Attempted to give report to VERITO Cornell. Was advised she is giving hand off report and will call back.
--- NOTE | 2019-11-26 07:06 | NUR ---
REPORT RECEIVED FROM VERITO MALLOY. PLAN OF CARE DISCUSSED. WILL ATTEMPT TO CALL REPORT
--- NOTE | 2019-11-26 07:17 | NUR ---
ATTEMPTED TO CALL REPORT TO VERITO SWEENEY. PLACED ON HOLD FOR THE LAST 10MINS. WILL ATTEMPT TO CALL NATIONAL BUSINESS DIRECTOR
--- NOTE | 2019-11-26 07:23 | NUR ---
REPORT GIVEN TO VERITO SWEENEY. PLAN OF CARE DISCUSSED
[2019-11-26 07:56] VITALS: BP 113/66
[2019-11-26] MEDS ORDERED: ENOXAPARIN 40 MG/0.4 ML SQ SCH (09:00)
[2019-11-26] MEDS ORDERED: LEVOFLOXACIN/PMX 750MG/150ML 150 ML IV SCH (09:00)
[2019-11-26] MEDS ORDERED: POLYETHYLENE GLYCOL 17 GM PACKET PO PRN (09:00)
[2019-11-26] MEDS ORDERED: ACETAMINOPHEN 325 MG TABLET PO PRN (09:00)
[2019-11-26] MEDS: BUDESONIDE 0.5 MG/2 ML INHA INH SCH ×2 (09:00→19:53)
[2019-11-26] MEDS ORDERED: ONDANSETRON 2MG/ML, 2ML IVPush PRN (09:00)
[2019-11-26] MEDS ORDERED: DOCUSATE 100 MG CAPSULE PO PRN (09:00)
[2019-11-26] MEDS: TAMSULOSIN 0.4 MG CAP.ER.24H PO SCH (09:41)
[2019-11-26] MEDS: METOPROLOL TARTRATE 25 MG TAB PO SCH ×2 (09:41→18:26)
[2019-11-26] MEDS: FOLIC ACID 1 MG TABLET PO SCH (09:41)
[2019-11-26] MEDS: POTASSIUM CHLORIDE 20 MEQ TAB.ER.PRT PO SCH ×2 (09:41→18:26)
[2019-11-26] MEDS: THIAMINE 100MG TABLET PO SCH (09:41)
[2019-11-26] MEDS: MULTIVITAMINS/MINERALS TABLET PO SCH (09:41)
[2019-11-26] MEDS: APIXABAN 2.5 MG TABLET PO SCH ×2 (09:42→20:49)
[2019-11-26] MEDS: NICOTINE 14MG/24 HR PATCH.TD24 TD SCH (09:42)
[2019-11-26] MEDS ORDERED: ALBUTEROL SULFATE 2.5 MG/3 ML ONE (11:53)
[2019-11-26] MEDS ORDERED: OMNIPAQUE 350 MG/ML, 100ML BOTTLE ONE (11:55)
[2019-11-26] MEDS ORDERED: ALBUTEROL SULFATE 2.5 MG/3 ML NPPB PRN (12:00)
[2019-11-26 12:54] VITALS: BP 100/63
[2019-11-26] MEDS: ALBUTEROL/IPRATROPIUM 2.5MG/0.5MG, 3 ML NPPB SCH ×2 (15:45→19:53)
[2019-11-26] MEDS: ONDANSETRON ODT 4 MG PO PRN (18:29)
[2019-11-26 18:53] VITALS: BP 104/62
[2019-11-27 00:01] VITALS: BP 102/57
[2019-11-27] MEDS: MELATONIN 3 MG TABLET PO PRN ×2 (00:11→22:10)
[2019-11-27 04:45] LABS: BASOPHILS # (AUTO) 0.01 x10^3/uL (0-0.1); BASOPHILS % (AUTO) 0 % (0-1); EOSINOPHILS % (AUTO) 1 % (1-7); LYMPHOCYTES # (AUTO) 0.58 x10^3/uL (1-3.4); LYMPHOCYTES % (AUTO) 5 % (22-44); MD NO; MEAN CORPUSCULAR HEMOGLOBIN 31.4 pg (27.5-34.5); MEAN CORPUSCULAR HGB CONC 32.8 g/dL (33.2-36.2); MEAN CORPUSCULAR VOLUME 95.6 fL (81-97); MEAN PLATELET VOLUME 8.5 fL (7.4-10.4); MONOCYTES # (AUTO) 1.23 x10^3/uL (0.2-0.8); MONOCYTES % (AUTO) 10 % (2-9); NEUTROPHILS # (AUTO) 9.98 x10^3/uL (1.8-6.8); NEUTROPHILS % (AUTO) 84 % (42-75); PLATELET COUNT 284 x10^3/uL (130-400); RED BLOOD COUNT 2.96 x10^6/uL (4.38-5.82); RED CELL DISTRIBUTION WIDTH 17.9 % (9.4-14.8)
[2019-11-27 04:49] LABS: ANION GAP 6 mmol/L (5-15); CHLORIDE 108 mmol/L (98-107); CREATININE 0.71 mg/dL (0.7-1.3)
[2019-11-27] MEDS: METOPROLOL TARTRATE 25 MG TAB PO SCH ×2 (06:00→17:06)
[2019-11-27 06:05] VITALS: BP 97/62
[2019-11-27 06:36] VITALS: BP 98/63
[2019-11-27] MEDS: BUDESONIDE 0.5 MG/2 ML INHA INH SCH ×2 (06:48→18:10)
[2019-11-27] MEDS: ALBUTEROL/IPRATROPIUM 2.5MG/0.5MG, 3 ML NPPB SCH ×4 (06:48→18:10)
[2019-11-27] MEDS: MULTIVITAMINS/MINERALS TABLET PO SCH (08:50)
[2019-11-27] MEDS: THIAMINE 100MG TABLET PO SCH (08:50)
[2019-11-27] MEDS: APIXABAN 2.5 MG TABLET PO SCH ×2 (08:50→22:10)
[2019-11-27] MEDS: FOLIC ACID 1 MG TABLET PO SCH (08:50)
[2019-11-27] MEDS: TAMSULOSIN 0.4 MG CAP.ER.24H PO SCH (08:50)
[2019-11-27] MEDS: NICOTINE 14MG/24 HR PATCH.TD24 TD SCH (08:50)
[2019-11-27] MEDS ORDERED: LEVOFLOXACIN/PMX 750MG/150ML 150 ML IV SCH (10:00)
[2019-11-27 12:54] VITALS: BP 122/67
[2019-11-27] MEDS: ONDANSETRON ODT 4 MG PO PRN (17:06)
[2019-11-27 18:29] VITALS: BP 103/62
[2019-11-28 02:15] VITALS: BP 105/64
[2019-11-28 05:37] LABS: BASOPHILS # (AUTO) 0.01 x10^3/uL (0-0.1); BASOPHILS % (AUTO) 0 % (0-1); EOSINOPHILS # (AUTO) 0.01 x10^3/uL (0-0.4); EOSINOPHILS % (AUTO) 0 % (1-7); LYMPHOCYTES # (AUTO) 1.02 x10^3/uL (1-3.4); LYMPHOCYTES % (AUTO) 8 % (22-44); MD NO; MEAN CORPUSCULAR HEMOGLOBIN 30.9 pg (27.5-34.5); MEAN CORPUSCULAR HGB CONC 32.5 g/dL (33.2-36.2); MEAN CORPUSCULAR VOLUME 95.2 fL (81-97); MEAN PLATELET VOLUME 8.5 fL (7.4-10.4); MONOCYTES # (AUTO) 1.11 x10^3/uL (0.2-0.8); MONOCYTES % (AUTO) 9 % (2-9); NEUTROPHILS # (AUTO) 10.61 x10^3/uL (1.8-6.8); NEUTROPHILS % (AUTO) 83 % (42-75); PLATELET COUNT 281 x10^3/uL (130-400); RED BLOOD COUNT 3.06 x10^6/uL (4.38-5.82); RED CELL DISTRIBUTION WIDTH 18.2 % (9.4-14.8)
[2019-11-28 05:44] LABS: ANION GAP 6 mmol/L (5-15); CALCIUM 8.7 mg/dL (8.5-10.1); CHLORIDE 105 mmol/L (98-107); CREATININE 0.67 mg/dL (0.7-1.3)
[2019-11-28 06:11] VITALS: BP 118/75
[2019-11-28] MEDS: METOPROLOL TARTRATE 25 MG TAB PO SCH ×2 (06:12→16:54)
[2019-11-28 06:54] VITALS: BP 103/62
[2019-11-28] MEDS: ALBUTEROL/IPRATROPIUM 2.5MG/0.5MG, 3 ML NPPB SCH ×4 (07:10→19:10)
[2019-11-28] MEDS: BUDESONIDE 0.5 MG/2 ML INHA INH SCH ×2 (07:10→11:15)
[2019-11-28] MEDS: NICOTINE 14MG/24 HR PATCH.TD24 TD SCH (08:51)
[2019-11-28] MEDS: THIAMINE 100MG TABLET PO SCH (08:51)
[2019-11-28] MEDS: FOLIC ACID 1 MG TABLET PO SCH (08:51)
[2019-11-28] MEDS: MULTIVITAMINS/MINERALS TABLET PO SCH (08:51)
[2019-11-28] MEDS: TAMSULOSIN 0.4 MG CAP.ER.24H PO SCH (08:51)
[2019-11-28] MEDS: ONDANSETRON ODT 4 MG PO PRN ×2 (08:51→16:53)
[2019-11-28] MEDS: APIXABAN 2.5 MG TABLET PO SCH ×2 (08:51→21:15)
[2019-11-28 12:08] VITALS: BP 112/68
[2019-11-28 19:14] VITALS: BP 113/59
[2019-11-28] MEDS: MELATONIN 3 MG TABLET PO PRN (21:15)
[2019-11-29 00:05] VITALS: BP 117/69
[2019-11-29 05:18] LABS: BASOPHILS % (AUTO) 0 % (0-1); EOSINOPHILS % (AUTO) 0 % (1-7); LYMPHOCYTES # (AUTO) 0.99 x10^3/uL (1-3.4); LYMPHOCYTES % (AUTO) 9 % (22-44); MD NO; MEAN CORPUSCULAR HEMOGLOBIN 30.8 pg (27.5-34.5); MEAN CORPUSCULAR VOLUME 96.2 fL (81-97); MEAN PLATELET VOLUME 8.2 fL (7.4-10.4); MONOCYTES # (AUTO) 1.19 x10^3/uL (0.2-0.8); MONOCYTES % (AUTO) 11 % (2-9); NEUTROPHILS # (AUTO) 8.98 x10^3/uL (1.8-6.8); NEUTROPHILS % (AUTO) 80 % (42-75); PLATELET COUNT 293 x10^3/uL (130-400); RED BLOOD COUNT 3.17 x10^6/uL (4.38-5.82); RED CELL DISTRIBUTION WIDTH 17.6 % (9.4-14.8)
[2019-11-29] MEDS: METOPROLOL TARTRATE 25 MG TAB PO SCH ×2 (05:28→17:35)
[2019-11-29 05:29] LABS: ANION GAP 4 mmol/L (5-15); CALCIUM 8.7 mg/dL (8.5-10.1); CHLORIDE 102 mmol/L (98-107); CREATININE 0.58 mg/dL (0.7-1.3)
[2019-11-29 06:15] VITALS: BP 108/68
[2019-11-29] MEDS: BUDESONIDE 0.5 MG/2 ML INHA INH SCH ×2 (08:00→19:12)
[2019-11-29] MEDS: ALBUTEROL/IPRATROPIUM 2.5MG/0.5MG, 3 ML NPPB SCH ×2 (08:00→19:11)
[2019-11-29] MEDS: TAMSULOSIN 0.4 MG CAP.ER.24H PO SCH (08:15)
[2019-11-29] MEDS: FOLIC ACID 1 MG TABLET PO SCH (08:15)
[2019-11-29] MEDS: APIXABAN 2.5 MG TABLET PO SCH ×2 (08:15→20:50)
[2019-11-29] MEDS: MULTIVITAMINS/MINERALS TABLET PO SCH (08:15)
[2019-11-29] MEDS: THIAMINE 100MG TABLET PO SCH (08:16)
[2019-11-29] MEDS: NICOTINE 14MG/24 HR PATCH.TD24 TD SCH (08:17)
[2019-11-29] MEDS: ONDANSETRON ODT 4 MG PO PRN ×2 (08:20→17:40)
[2019-11-29] MEDS ORDERED: ALBUTEROL SULFATE 2.5 MG/3 ML NPPB PRN (09:00)
[2019-11-29 12:30] VITALS: BP 104/61
[2019-11-29] MEDS: methylPREDNISolone SOD SUCC 125 MG/2 ML IVPush SCH ×2 (14:24→20:50)
[2019-11-29 18:50] VITALS: BP 112/67
[2019-11-29] MEDS: MELATONIN 3 MG TABLET PO PRN (20:50)
[2019-11-30 01:32] VITALS: BP 112/68
[2019-11-30] MEDS: methylPREDNISolone SOD SUCC 125 MG/2 ML IVPush SCH ×2 (03:11→07:10)
[2019-11-30] MEDS: ONDANSETRON ODT 4 MG PO PRN ×2 (05:14→10:44)
[2019-11-30] MEDS: METOPROLOL TARTRATE 25 MG TAB PO SCH (05:14)
[2019-11-30 05:45] LABS: BASOPHILS # (AUTO) 0.01 x10^3/uL (0-0.1); BASOPHILS % (AUTO) 0 % (0-1); EOSINOPHILS % (AUTO) 0 % (1-7); LYMPHOCYTES # (AUTO) 0.73 x10^3/uL (1-3.4); LYMPHOCYTES % (AUTO) 7 % (22-44); MD NO; MEAN CORPUSCULAR HEMOGLOBIN 30.9 pg (27.5-34.5); MEAN CORPUSCULAR HGB CONC 32.7 g/dL (33.2-36.2); MEAN CORPUSCULAR VOLUME 94.6 fL (81-97); MEAN PLATELET VOLUME 8.5 fL (7.4-10.4); MONOCYTES # (AUTO) 0.44 x10^3/uL (0.2-0.8); MONOCYTES % (AUTO) 4 % (2-9); NEUTROPHILS # (AUTO) 9.69 x10^3/uL (1.8-6.8); NEUTROPHILS % (AUTO) 89 % (42-75); PLATELET COUNT 290 x10^3/uL (130-400); RED BLOOD COUNT 3.36 x10^6/uL (4.38-5.82); RED CELL DISTRIBUTION WIDTH 17.9 % (9.4-14.8)
[2019-11-30 05:53] LABS: CHLORIDE 98 mmol/L (98-107)
[2019-11-30 05:58] LABS: ANION GAP 5 mmol/L (5-15); CALCIUM 8.7 mg/dL (8.5-10.1); CREATININE 0.71 mg/dL (0.7-1.3)
[2019-11-30] MEDS: ALBUTEROL/IPRATROPIUM 2.5MG/0.5MG, 3 ML NPPB SCH (07:10)
[2019-11-30] MEDS: BUDESONIDE 0.5 MG/2 ML INHA INH SCH (07:10)
[2019-11-30 07:37] VITALS: BP 121/74
[2019-11-30] MEDS: MULTIVITAMINS/MINERALS TABLET PO SCH (10:42)
[2019-11-30] MEDS: THIAMINE 100MG TABLET PO SCH (10:42)
[2019-11-30] MEDS: FOLIC ACID 1 MG TABLET PO SCH (10:42)
[2019-11-30] MEDS: TAMSULOSIN 0.4 MG CAP.ER.24H PO SCH (10:42)
[2019-11-30] MEDS: NICOTINE 14MG/24 HR PATCH.TD24 TD SCH (10:42)
[2019-11-30] MEDS: APIXABAN 2.5 MG TABLET PO SCH (10:42)
[2019-11-30] MEDS ORDERED: METO25TA35 PO (10:53)
[2019-11-30] MEDS ORDERED: PRED20TA PO (10:53)
[2019-11-30 12:00] VITALS: BP 121/65
== END 2019-11-30 13:41 | disposition home or self-care (01) | DRG 189 ==
LOC: ED 06:31 → 3N 07:15
PROVIDERS: ADMIT Emergency Medicine; ATTEND Internal Medicine
DX: J96.01 Acute respiratory failure with hypoxia (principal); E43 Unspecified severe protein-calorie malnutrition; J44.1 Chronic obstructive pulmonary disease with (acute) exacerbation; I48.20 Chronic atrial fibrillation, unspecified; R65.10 Systemic inflammatory response syndrome (SIRS) of non-infectious origin without acute organ dysfunction; D68.69 Other thrombophilia; I11.0 Hypertensive heart disease with heart failure; I27.20 Pulmonary hypertension, unspecified; I08.1 Rheumatic disorders of both mitral and tricuspid valves; F10.20 Alcohol dependence, uncomplicated; Z72.0 Tobacco use; N40.0 Benign prostatic hyperplasia without lower urinary tract symptoms; Z59.0 Homelessness; Z91.19 Patient's noncompliance with other medical treatment and regimen; Z66 Do not resuscitate; E87.6 Hypokalemia; D64.9 Anemia, unspecified
CPT/HCPCS: 36415; 71045; 71275; 80048; 80053; 83605; 83880; 84145; 84484; 85025; 87040; 93005; 94640; 96374; G0378; J0696; J1956; J7613; J7626; Q0162; Q9967; J2930; J7030; J7512

== ENCOUNTER 2019-11-30 17:35 | Emergency (ER) | payer MEDICARE, MEDICAID ==
[~2019-11-30] VITALS: Ht 177.8 cm; Wt 50.0 kg
[~2019-11-30 17:35] MED LIST changes: +METO25TA35 PO
[2019-11-30 17:40] VITALS: BP 137/79
--- NOTE | 2019-11-30 18:03 | NUR ---
PT TO RM FROM LOBBY FOR STATED COUGH, NO COUGH OBSERVED, PT ORIGINAL COMPLAINT WAS "NOT WANTING TO PHOTOGRAPHIC EQUIPMENT MECHANIC LINE AT HOM[facility]ESS [facility]" AWAITING PROVIDER EVAL.
--- NOTE | 2019-11-30 18:42 | NUR ---
BHAVYA CALLED, PLAN TO ARRANGE TRANSPORT VIA [facility] TO THE ALF.
--- NOTE | 2019-11-30 18:45 | NUR ---
ERMD UPDATED, THROUGHPUT RECOMMENDS TAXI VOUCHER. ERMD TO PREPARE PAPERWORK.
--- NOTE | 2019-11-30 18:53 | NUR ---
PT 95% ON RA
== END 2019-11-30 19:19 | disposition home or self-care (01) ==
LOC: ED 18:45
DX: J00 Acute nasopharyngitis [common cold] (principal); Z72.9 Problem related to lifestyle, unspecified; I10 Essential (primary) hypertension
CPT/HCPCS: 93005; 99283

== ENCOUNTER 2019-12-08 15:21 | Inpatient (IN) | payer MEDICARE, MEDICAID ==
[~2019-12-08] VITALS: Ht 177.8 cm; Wt 47.8 kg
--- NOTE | 2019-12-08 15:30 | NUR ---
THIS IS A 79 YO M W/ C/O INCREASED WOB. PT WAS SEEN AT [facility] TODAY BUT LEFT AMA WHEN THEY WANTED TO ADMIT HIM. PT HAS HX OF COPD, WORE 3L OF O2 UP UNTIL SEPTEMBER OF THIS YEAR. PT STATES HE CANT CARRY IT UP AND DOWN THE STAIRS. PT IS CURRENTLY STAYING AT [email or web address]. PT IS TACHYCARDIC, AND TACHYPNEIC, OTHER VS WDL. PT PLACED ON 3L O2 NC. CONNECTED TO ALL MONITORING. PROVIDED URINAL. CALL LIGHT IN REACH. SIDE RAILS UPX2.
[2019-12-08] MEDS ORDERED: DILTIAZEM 5 MG/ML, 5ML ONE (15:59)
[2019-12-08] MEDS ORDERED: SODIUM CHLORIDE FLUSH 10ML SYR IVF ONE (16:00)
[2019-12-08] MEDS ORDERED: DILTIAZEM 5 MG/ML, 5ML IVPush ONE (16:00)
[2019-12-08] MEDS ORDERED: ALBUTEROL SULFATE 200 PUFFS/8.5 GR INH INH PRN (16:00)
[2019-12-08 16:14] LABS: MEAN CORPUSCULAR HEMOGLOBIN 30.7 pg (27.5-34.5); MEAN CORPUSCULAR HGB CONC 32.3 g/dL (33.2-36.2); MEAN CORPUSCULAR VOLUME 95.2 fL (81-97); MEAN PLATELET VOLUME 8.7 fL (7.4-10.4); PLATELET COUNT 218 x10^3/uL (130-400); RED BLOOD COUNT 3.47 x10^6/uL (4.38-5.82); RED CELL DISTRIBUTION WIDTH 18.6 % (9.4-14.8)
[2019-12-08 16:21] LABS: ALANINE AMINOTRANSFERASE 32 U/L (12-78); ALBUMIN 2.8 g/dL (3.4-5.0); ANION GAP 2 mmol/L (5-15); CALCIUM 8.3 mg/dL (8.5-10.1); CHLORIDE 104 mmol/L (98-107); CREATININE 0.93 mg/dL (0.7-1.3)
[2019-12-08 16:22] LABS: ALKALINE PHOSPHATASE 68 U/L (45-117); BILIRUBIN,TOTAL 0.2 mg/dL (0.2-1.0); TOTAL PROTEIN 6.5 g/dL (6.4-8.2)
[2019-12-08 16:37] LABS: MD YES
[2019-12-08 16:38] LABS: LYMPH#(MANUAL) 0.25 x10^3/uL (1-3.4); LYMPHS% (MANUAL) 2 % (22-44); NRBC % (MANUAL) 1 % (0-1); SEG#(MANUAL) 12.15 x10^3/uL (1.8-6.8); SEGS% (MANUAL) 98 % (42-75)
[2019-12-08 16:39] LABS: <PLATELET ESTIMATE> ADEQUATE; <PLT MORPHOLOGY> NORMAL PLT MORPH; ANISOCYTOSIS 1+; OVALOCYTES 1+; POLYCHROMASIA 1+
--- NOTE | 2019-12-08 16:41 | NUR ---
PIV STARTED, PT MEDICATED PER EMAR. UPDATED ON POC FOR ADMIT.
[2019-12-08] MEDS ORDERED: methylPREDNISolone SOD SUCC 125 MG/2 ML IVPush ONE (17:00)
[2019-12-08] MEDS ORDERED: methylPREDNISolone SOD SUCC 125 MG/2 ML ONE (17:11)
--- NOTE | 2019-12-08 17:25 | NUR ---
PT RESTING ON Canonical W/ CALL LIGHT IN REACH. MEDICATED PER EMAR. DENIES FURTHER NEEDS AT THIS TIME.
--- NOTE | 2019-12-08 17:45 | NUR ---
REPORT GIVEN TO KIRBY SELLERS. PT IS READY FOR TRANSPORT. ROOM WILL BE READY AT 1800.
[2019-12-08] MEDS ORDERED: POLYETHYLENE GLYCOL 17 GM PACKET PO PRN (18:00)
[2019-12-08] MEDS ORDERED: BISACODYL 10 MG SUPP PR PRN (18:00)
[2019-12-08] MEDS ORDERED: LORazepam 2 MG/ML, 1ML IVPush PRN (18:00)
[2019-12-08] MEDS ORDERED: CHLORDIAZEPOXIDE 25 MG CAPSULE PO PRN (18:00)
--- NOTE | 2019-12-08 18:25 | NUR ---
PT. WAS TRANSPORTED TO icu BY [facility].
[2019-12-08] MEDS: SODIUM CHLORIDE 0.9% 1,000 ML IV SCH (18:30)
[2019-12-08 19:00] VITALS: BP 132/57
[2019-12-08] MEDS: METOPROLOL TARTRATE 25 MG TAB PO SCH (20:17)
[2019-12-08] MEDS: AZITHROMYCIN 500 MG in SODIUM CHLORIDE 0.9% 250 ML IV SCH (20:17)
[2019-12-08] MEDS: NICOTINE 21 MG/24 HR PATCH.TD24 TD SCH (20:18)
[2019-12-08] MEDS: APIXABAN 2.5 MG TABLET PO SCH (20:18)
[2019-12-08] MEDS: THIAMINE 100MG TABLET PO SCH (20:19)
[2019-12-08] MEDS: LACTOBACILLUS CHEW TABLET PO SCH (20:19)
[2019-12-08 20:27] VITALS: BP 122/59
[2019-12-08] MEDS: Symbicort 160-4.5 Mcg Inhaler HOMEINH SCH (20:54)
[2019-12-08] MEDS: TRAZODONE 100MG TABLET PO PRN (22:39)
[2019-12-08] MEDS: ONDANSETRON ODT 4 MG PO PRN (22:39)
[2019-12-08] MEDS: methylPREDNISolone SOD SUCC 125 MG/2 ML IVPush SCH (22:41)
[2019-12-08] MEDS: GUAIFENESIN/DM 200-20MG, 10ML UDC PO PRN (22:42)
[2019-12-08] MEDS: INSULIN LISPRO 100 UNITS/ML, PEN SQ-INSULIN SCH (22:42)
[2019-12-09 02:00] VITALS: BP 104/63
[2019-12-09 05:39] LABS: ANION GAP 6 mmol/L (5-15); CALCIUM 8.1 mg/dL (8.5-10.1); CHLORIDE 110 mmol/L (98-107)
[2019-12-09 05:40] LABS: CREATININE 0.63 mg/dL (0.7-1.3)
[2019-12-09 05:45] LABS: MEAN CORPUSCULAR HEMOGLOBIN 30.7 pg (27.5-34.5); MEAN CORPUSCULAR VOLUME 95.9 fL (81-97); MEAN PLATELET VOLUME 8.6 fL (7.4-10.4); PLATELET COUNT 193 x10^3/uL (130-400); RED BLOOD COUNT 3.19 x10^6/uL (4.38-5.82); RED CELL DISTRIBUTION WIDTH 18.7 % (9.4-14.8)
[2019-12-09] MEDS: methylPREDNISolone SOD SUCC 125 MG/2 ML IVPush SCH ×4 (05:45→23:29)
[2019-12-09] MEDS: SODIUM CHLORIDE 0.9% 1,000 ML IV SCH (05:45)
[2019-12-09 06:21] LABS: BASOPHILS % (AUTO) 0 % (0-1); EOSINOPHILS # (AUTO) 0.12 x10^3/uL (0-0.4); EOSINOPHILS % (AUTO) 1 % (1-7); LYMPHOCYTES # (AUTO) 0.33 x10^3/uL (1-3.4); LYMPHOCYTES % (AUTO) 2 % (22-44); MD MORPH REVIEW ONLY; MONOCYTES # (AUTO) 0.58 x10^3/uL (0.2-0.8); MONOCYTES % (AUTO) 3 % (2-9); NEUTROPHILS # (AUTO) 17.36 x10^3/uL (1.8-6.8); NEUTROPHILS % (AUTO) 94 % (42-75)
[2019-12-09 06:24] LABS: <PLATELET ESTIMATE> ADEQUATE; <PLT MORPHOLOGY> NORMAL PLT MORPH; ANISOCYTOSIS 1+; OVALOCYTES 1+; POLYCHROMASIA 1+
[2019-12-09] MEDS: INSULIN LISPRO 100 UNITS/ML, PEN SQ-INSULIN SCH ×4 (06:58→20:01)
[2019-12-09] MEDS ORDERED: CEFTRIAXONE PMX 1GM/50ML 50 ML IV SCH (07:00)
[2019-12-09] MEDS ORDERED: LACTATED RINGERS 500 ML IVBOLUS ONE (08:00)
[2019-12-09] MEDS: METOPROLOL TARTRATE 25 MG TAB PO SCH ×2 (08:00→18:47)
[2019-12-09] MEDS ORDERED: LACTATED RINGERS 1,000 ML IV SCH (08:00)
[2019-12-09] MEDS: FOLIC ACID 1 MG TABLET PO SCH (08:23)
[2019-12-09] MEDS: SENNA/DOCUSATE TABLET PO SCH (08:23)
[2019-12-09] MEDS: TAMSULOSIN 0.4 MG CAP.ER.24H PO SCH (08:24)
[2019-12-09] MEDS: THIAMINE 100MG TABLET PO SCH ×2 (08:24→20:16)
[2019-12-09] MEDS: LACTOBACILLUS CHEW TABLET PO SCH ×3 (08:24→20:16)
[2019-12-09] MEDS: MULTIVITAMINS/MINERALS TABLET PO SCH (08:24)
[2019-12-09] MEDS: APIXABAN 2.5 MG TABLET PO SCH ×2 (08:24→20:15)
[2019-12-09 08:30] VITALS: BP 98/62
[2019-12-09] MEDS: Symbicort 160-4.5 Mcg Inhaler HOMEINH SCH (08:35)
[2019-12-09] MEDS: ONDANSETRON ODT 4 MG PO PRN ×2 (08:47→17:33)
[2019-12-09] MEDS ORDERED: (Tiotropium Bromide** (Spiriva**) 18 MCG) HOMEINH SCH (09:00)
[2019-12-09] MEDS ORDERED: METOPROLOL TARTRATE 25 MG TAB PO ONE (09:00)
[2019-12-09] MEDS: MEROPENEM 1 GM in SODIUM CHLORIDE 0.9% 100 ML IV SCH ×2 (11:34→19:59)
[2019-12-09] MEDS: FLUTICASONE/VILANTEROL 200-25MCG/INH INH SCH (12:34)
[2019-12-09] MEDS: ALBUTEROL-IPRATROPIUM MDI INH INH SCH ×3 (12:36→21:14)
[2019-12-09 13:15] VITALS: BP 106/46
[2019-12-09] MEDS ORDERED: SODIUM CHLORIDE 0.9% 1,000ML IVBOLUS ONE (14:30)
[2019-12-09] MEDS ORDERED: DIGOXIN 0.25 MG/ML, 2ML IVPush ONE (14:30)
[2019-12-09] MEDS: MIDODRINE 5 MG TABLET PO SCH ×2 (16:28→20:16)
[2019-12-09] MEDS: NICOTINE 21 MG/24 HR PATCH.TD24 TD SCH (18:47)
[2019-12-09 19:31] VITALS: BP 106/50
[2019-12-09 19:49] VITALS: BP 111/70
[2019-12-09] MEDS: TRAZODONE 100MG TABLET PO PRN (20:18)
[2019-12-09] MEDS: AZITHROMYCIN 500 MG in SODIUM CHLORIDE 0.9% 250 ML IV SCH (20:53)
[2019-12-10] MEDS: ALBUTEROL-IPRATROPIUM MDI INH INH SCH ×4 (01:20→19:19)
[2019-12-10 02:11] VITALS: BP 111/59
[2019-12-10] MEDS: MEROPENEM 1 GM in SODIUM CHLORIDE 0.9% 100 ML IV SCH ×2 (02:36→11:00)
[2019-12-10] MEDS: METOPROLOL TARTRATE 25 MG TAB PO SCH ×2 (05:11→18:10)
[2019-12-10] MEDS: methylPREDNISolone SOD SUCC 125 MG/2 ML IVPush SCH ×2 (05:11→11:16)
[2019-12-10 06:06] LABS: MEAN CORPUSCULAR HGB CONC 32.2 g/dL (33.2-36.2); MEAN CORPUSCULAR VOLUME 96.2 fL (81-97); MEAN PLATELET VOLUME 8.6 fL (7.4-10.4); PLATELET COUNT 196 x10^3/uL (130-400); RED BLOOD COUNT 3.04 x10^6/uL (4.38-5.82); RED CELL DISTRIBUTION WIDTH 19.1 % (9.4-14.8)
[2019-12-10 06:25] LABS: MD YES
[2019-12-10 06:27] LABS: BAND#(MANUAL) 0.47 x10^3/uL; BANDS%(MANUAL) 2 % (0-7)
[2019-12-10 06:29] LABS: LYMPH#(MANUAL) 0.23 x10^3/uL (1-3.4); LYMPHS% (MANUAL) 1 % (22-44); SEGS% (MANUAL) 97 % (42-75)
[2019-12-10 06:30] LABS: ANISOCYTOSIS 1+; HYPOCHROMIA 1+
[2019-12-10 06:31] LABS: OVALOCYTES 1+
[2019-12-10 06:32] LABS: <PLATELET ESTIMATE> ADEQUATE; <PLT MORPHOLOGY> NORMAL PLT MORPH
[2019-12-10] MEDS ORDERED: LACTATED RINGERS 1,000 ML IV SCH (08:00)
[2019-12-10] MEDS: ONDANSETRON ODT 4 MG PO PRN (08:40)
[2019-12-10] MEDS: FLUTICASONE/VILANTEROL 200-25MCG/INH INH SCH (08:41)
[2019-12-10] MEDS: INSULIN LISPRO 100 UNITS/ML, PEN SQ-INSULIN SCH ×5 (09:58→20:27)
[2019-12-10 10:06] VITALS: BP 102/62
[2019-12-10] MEDS: MULTIVITAMINS/MINERALS TABLET PO SCH (11:17)
[2019-12-10] MEDS: FOLIC ACID 1 MG TABLET PO SCH (11:17)
[2019-12-10] MEDS: TAMSULOSIN 0.4 MG CAP.ER.24H PO SCH (11:17)
[2019-12-10] MEDS: APIXABAN 2.5 MG TABLET PO SCH ×2 (11:17→20:27)
[2019-12-10] MEDS: MIDODRINE 5 MG TABLET PO SCH (11:17)
[2019-12-10] MEDS: SENNA/DOCUSATE TABLET PO SCH (11:17)
[2019-12-10] MEDS: LACTOBACILLUS CHEW TABLET PO SCH ×3 (11:17→20:27)
[2019-12-10] MEDS: THIAMINE 100MG TABLET PO SCH ×2 (11:18→20:27)
[2019-12-10 13:39] VITALS: BP 123/72
--- NOTE | 2019-12-10 14:21 | NUR ---
REC: D/C home Addendum: 12/10/19 at 1421 by Gaby NGUYỄN Amended: Links added.
[2019-12-10] MEDS: NICOTINE 21 MG/24 HR PATCH.TD24 TD SCH (18:09)
[2019-12-10 19:01] VITALS: BP 137/68
[2019-12-10] MEDS: DOXYCYCLINE 100 MG in DEXTROSE 5% 250 ML IV SCH (19:14)
[2019-12-10] MEDS: methylPREDNISolone SOD SUCC 40 MG/ML IVPush SCH (20:27)
[2019-12-10] MEDS ORDERED: MEROPENEM 1 GM in SODIUM CHLORIDE 0.9% 100 ML IV SCH (23:00)
[2019-12-11] MEDS: ALBUTEROL-IPRATROPIUM MDI INH INH SCH ×4 (00:22→20:29)
[2019-12-11] MEDS: TRAZODONE 100MG TABLET PO PRN ×2 (00:22→20:30)
[2019-12-11 00:25] VITALS: BP 145/77
[2019-12-11 04:45] LABS: MEAN CORPUSCULAR HEMOGLOBIN 30.6 pg (27.5-34.5); MEAN CORPUSCULAR HGB CONC 31.6 g/dL (33.2-36.2); MEAN CORPUSCULAR VOLUME 97.1 fL (81-97); MEAN PLATELET VOLUME 8.7 fL (7.4-10.4); PLATELET COUNT 202 x10^3/uL (130-400); RED BLOOD COUNT 3.28 x10^6/uL (4.38-5.82); RED CELL DISTRIBUTION WIDTH 18.6 % (9.4-14.8)
[2019-12-11 04:59] LABS: CHLORIDE 107 mmol/L (98-107)
[2019-12-11 05:07] LABS: ALANINE AMINOTRANSFERASE 63 U/L (12-78); ALBUMIN 2.5 g/dL (3.4-5.0); ALKALINE PHOSPHATASE 65 U/L (45-117); ANION GAP 5 mmol/L (5-15); BILIRUBIN,TOTAL 0.3 mg/dL (0.2-1.0); CALCIUM 8.3 mg/dL (8.5-10.1); CREATININE 0.61 mg/dL (0.7-1.3); TOTAL PROTEIN 5.9 g/dL (6.4-8.2)
[2019-12-11 05:11] LABS: MD YES
[2019-12-11 05:13] LABS: <PLATELET ESTIMATE> ADEQUATE; <PLT MORPHOLOGY> NORMAL PLT MORPH; ANISOCYTOSIS 1+; LYMPH#(MANUAL) 0.38 x10^3/uL (1-3.4); LYMPHS% (MANUAL) 2 % (22-44); METAMYELOCYTES# (MANUAL) 0.19 x10^3/uL (0-0); METAMYELOCYTES% (MANUAL) 1 % (0-1); MONOS#(MANUAL) 0.95 x10^3/uL (0.3-2.7); MONOS% (MANUAL) 5 % (2-9); OVALOCYTES 1+; SEG#(MANUAL) 17.39 x10^3/uL (1.8-6.8); SEGS% (MANUAL) 92 % (42-75)
[2019-12-11] MEDS: METOPROLOL TARTRATE 25 MG TAB PO SCH ×2 (05:26→17:40)
[2019-12-11] MEDS: DOXYCYCLINE 100 MG in DEXTROSE 5% 250 ML IV SCH ×2 (05:26→17:40)
[2019-12-11 06:43] VITALS: BP 102/64
[2019-12-11] MEDS: INSULIN LISPRO 100 UNITS/ML, PEN SQ-INSULIN SCH ×4 (07:00→20:29)
[2019-12-11] MEDS: ONDANSETRON ODT 4 MG PO PRN ×2 (08:43→17:03)
[2019-12-11] MEDS: FLUTICASONE/VILANTEROL 200-25MCG/INH INH SCH (09:50)
[2019-12-11] MEDS: APIXABAN 2.5 MG TABLET PO SCH ×2 (09:51→20:30)
[2019-12-11] MEDS: MULTIVITAMINS/MINERALS TABLET PO SCH (09:51)
[2019-12-11] MEDS: FOLIC ACID 1 MG TABLET PO SCH (09:51)
[2019-12-11] MEDS: methylPREDNISolone SOD SUCC 40 MG/ML IVPush SCH ×3 (09:51→20:28)
[2019-12-11] MEDS: THIAMINE 100MG TABLET PO SCH ×2 (09:51→20:29)
[2019-12-11] MEDS: SENNA/DOCUSATE TABLET PO SCH (09:51)
[2019-12-11] MEDS: TAMSULOSIN 0.4 MG CAP.ER.24H PO SCH (09:51)
[2019-12-11] MEDS: LACTOBACILLUS CHEW TABLET PO SCH ×3 (09:51→20:29)
[2019-12-11] MEDS: CEFTRIAXONE PMX 1GM/50ML 50 ML IV SCH (11:24)
[2019-12-11 12:40] VITALS: BP 148/72
[2019-12-11] MEDS ORDERED: ONDA4TAB7 PO (13:35)
[2019-12-11] MEDS: NICOTINE 21 MG/24 HR PATCH.TD24 TD SCH (17:39)
[2019-12-11 18:51] VITALS: BP 122/73
[2019-12-11] MEDS: GUAIFENESIN/DM 200-20MG, 10ML UDC PO PRN (20:30)
[2019-12-12 00:25] VITALS: BP 100/65
[2019-12-12] MEDS: ALBUTEROL-IPRATROPIUM MDI INH INH SCH ×4 (04:00→20:26)
[2019-12-12] MEDS: DOXYCYCLINE 100 MG in DEXTROSE 5% 250 ML IV SCH ×2 (05:22→19:13)
[2019-12-12] MEDS: METOPROLOL TARTRATE 25 MG TAB PO SCH ×2 (05:22→19:14)
[2019-12-12 07:19] VITALS: BP 130/75
[2019-12-12] MEDS: INSULIN LISPRO 100 UNITS/ML, PEN SQ-INSULIN SCH ×4 (09:15→20:27)
[2019-12-12] MEDS: TAMSULOSIN 0.4 MG CAP.ER.24H PO SCH (09:16)
[2019-12-12] MEDS: THIAMINE 100MG TABLET PO SCH ×2 (09:16→20:27)
[2019-12-12] MEDS: methylPREDNISolone SOD SUCC 40 MG/ML IVPush SCH ×2 (09:16→20:25)
[2019-12-12] MEDS: MULTIVITAMINS/MINERALS TABLET PO SCH (09:16)
[2019-12-12] MEDS: SENNA/DOCUSATE TABLET PO SCH (09:16)
[2019-12-12] MEDS: LACTOBACILLUS CHEW TABLET PO SCH ×3 (09:16→20:27)
[2019-12-12] MEDS: FOLIC ACID 1 MG TABLET PO SCH (09:16)
[2019-12-12] MEDS: FLUTICASONE/VILANTEROL 200-25MCG/INH INH SCH (09:16)
[2019-12-12] MEDS: ONDANSETRON ODT 4 MG PO PRN ×2 (09:17→16:39)
[2019-12-12] MEDS: CEFTRIAXONE PMX 1GM/50ML 50 ML IV SCH (11:40)
[2019-12-12 12:03] VITALS: BP 116/63
[2019-12-12 18:30] VITALS: BP 116/70
[2019-12-12] MEDS: NICOTINE 21 MG/24 HR PATCH.TD24 TD SCH (19:13)
[2019-12-12] MEDS: TRAZODONE 100MG TABLET PO PRN (20:26)
[2019-12-13 00:36] VITALS: BP 112/66
[2019-12-13] MEDS: ALBUTEROL-IPRATROPIUM MDI INH INH SCH ×4 (04:20→20:18)
[2019-12-13] MEDS: METOPROLOL TARTRATE 25 MG TAB PO SCH ×2 (05:41→18:29)
[2019-12-13] MEDS: DOXYCYCLINE 100 MG in DEXTROSE 5% 250 ML IV SCH ×2 (05:41→18:29)
[2019-12-13 06:17] VITALS: BP 136/76
[2019-12-13 06:19] LABS: MEAN CORPUSCULAR HEMOGLOBIN 30.6 pg (27.5-34.5); MEAN CORPUSCULAR HGB CONC 32.2 g/dL (33.2-36.2); MEAN PLATELET VOLUME 8.6 fL (7.4-10.4); PLATELET COUNT 196 x10^3/uL (130-400); RED BLOOD COUNT 3.21 x10^6/uL (4.38-5.82); RED CELL DISTRIBUTION WIDTH 18.1 % (9.4-14.8)
[2019-12-13 06:24] LABS: ANION GAP 3 mmol/L (5-15); CALCIUM 8.8 mg/dL (8.5-10.1); CHLORIDE 102 mmol/L (98-107); CREATININE 0.55 mg/dL (0.7-1.3)
[2019-12-13 06:56] LABS: BASOPHILS # (AUTO) 0.01 x10^3/uL (0-0.1); BASOPHILS % (AUTO) 0 % (0-1); EOSINOPHILS # (AUTO) 0.01 x10^3/uL (0-0.4); EOSINOPHILS % (AUTO) 0 % (1-7); LYMPHOCYTES # (AUTO) 0.39 x10^3/uL (1-3.4); LYMPHOCYTES % (AUTO) 3 % (22-44); MD SCAN; MONOCYTES # (AUTO) 0.13 x10^3/uL (0.2-0.8); MONOCYTES % (AUTO) 1 % (2-9); NEUTROPHILS # (AUTO) 14.82 x10^3/uL (1.8-6.8); NEUTROPHILS % (AUTO) 97 % (42-75)
[2019-12-13] MEDS: INSULIN LISPRO 100 UNITS/ML, PEN SQ-INSULIN SCH ×4 (07:00→20:16)
[2019-12-13] MEDS: SENNA/DOCUSATE TABLET PO SCH (09:00)
[2019-12-13] MEDS: TAMSULOSIN 0.4 MG CAP.ER.24H PO SCH ×2 (09:00→11:00)
[2019-12-13] MEDS: ONDANSETRON ODT 4 MG PO PRN ×2 (10:58→18:36)
[2019-12-13] MEDS: methylPREDNISolone SOD SUCC 40 MG/ML IVPush SCH ×2 (10:59→20:14)
[2019-12-13] MEDS: THIAMINE 100MG TABLET PO SCH ×2 (10:59→20:14)
[2019-12-13] MEDS: CEFTRIAXONE PMX 1GM/50ML 50 ML IV SCH (10:59)
[2019-12-13] MEDS: FLUTICASONE/VILANTEROL 200-25MCG/INH INH SCH (10:59)
[2019-12-13] MEDS: FOLIC ACID 1 MG TABLET PO SCH (10:59)
[2019-12-13] MEDS: LACTOBACILLUS CHEW TABLET PO SCH ×3 (11:00→20:14)
[2019-12-13] MEDS: MULTIVITAMINS/MINERALS TABLET PO SCH (11:00)
[2019-12-13 12:16] VITALS: BP 114/67
[2019-12-13] MEDS: NICOTINE 21 MG/24 HR PATCH.TD24 TD SCH (18:28)
[2019-12-13 18:49] VITALS: BP 119/72
[2019-12-13] MEDS: TRAZODONE 100MG TABLET PO PRN (20:14)
[2019-12-13] MEDS: APIXABAN 2.5 MG TABLET PO SCH (20:14)
[2019-12-14 03:05] VITALS: BP 113/66
[2019-12-14] MEDS: ALBUTEROL-IPRATROPIUM MDI INH INH SCH ×4 (03:19→22:32)
[2019-12-14] MEDS: METOPROLOL TARTRATE 25 MG TAB PO SCH ×2 (05:39→18:04)
[2019-12-14] MEDS: DOXYCYCLINE 100 MG in DEXTROSE 5% 250 ML IV SCH ×2 (05:39→18:05)
[2019-12-14 06:52] VITALS: BP 158/77
[2019-12-14] MEDS: INSULIN LISPRO 100 UNITS/ML, PEN SQ-INSULIN SCH ×4 (07:00→19:33)
[2019-12-14] MEDS: SENNA/DOCUSATE TABLET PO SCH (07:38)
[2019-12-14] MEDS: methylPREDNISolone SOD SUCC 40 MG/ML IVPush SCH ×2 (07:55→21:23)
[2019-12-14] MEDS: ONDANSETRON ODT 4 MG PO PRN ×2 (07:55→21:18)
[2019-12-14] MEDS: FLUTICASONE/VILANTEROL 200-25MCG/INH INH SCH (07:55)
[2019-12-14] MEDS: APIXABAN 2.5 MG TABLET PO SCH ×2 (07:59→21:24)
[2019-12-14] MEDS: TAMSULOSIN 0.4 MG CAP.ER.24H PO SCH (07:59)
[2019-12-14] MEDS: MULTIVITAMINS/MINERALS TABLET PO SCH (08:00)
[2019-12-14] MEDS: LACTOBACILLUS CHEW TABLET PO SCH ×4 (08:00→21:25)
[2019-12-14] MEDS: THIAMINE 100MG TABLET PO SCH ×2 (08:00→21:23)
[2019-12-14] MEDS: FOLIC ACID 1 MG TABLET PO SCH (08:00)
[2019-12-14] MEDS: ACETAMINOPHEN 325 MG TABLET PO PRN (10:00)
[2019-12-14] MEDS: CEFTRIAXONE PMX 1GM/50ML 50 ML IV SCH (10:00)
[2019-12-14 12:37] VITALS: BP 122/70
[2019-12-14 16:01] LABS: BASOPHILS # (AUTO) 0.14 x10^3/uL (0-0.1); BASOPHILS % (AUTO) 1 % (0-1); EOSINOPHILS # (AUTO) 0.01 x10^3/uL (0-0.4); EOSINOPHILS % (AUTO) 0 % (1-7); LYMPHOCYTES # (AUTO) 0.39 x10^3/uL (1-3.4); LYMPHOCYTES % (AUTO) 3 % (22-44); MD NO; MEAN CORPUSCULAR HEMOGLOBIN 30.7 pg (27.5-34.5); MEAN CORPUSCULAR HGB CONC 32.5 g/dL (33.2-36.2); MEAN CORPUSCULAR VOLUME 94.5 fL (81-97); MEAN PLATELET VOLUME 8.8 fL (7.4-10.4); MONOCYTES # (AUTO) 0.39 x10^3/uL (0.2-0.8); MONOCYTES % (AUTO) 3 % (2-9); NEUTROPHILS # (AUTO) 12.89 x10^3/uL (1.8-6.8); NEUTROPHILS % (AUTO) 93 % (42-75); PLATELET COUNT 207 x10^3/uL (130-400); RED BLOOD COUNT 3.29 x10^6/uL (4.38-5.82); RED CELL DISTRIBUTION WIDTH 18.1 % (9.4-14.8)
[2019-12-14] MEDS: NICOTINE 21 MG/24 HR PATCH.TD24 TD SCH (18:04)
[2019-12-14 20:17] VITALS: BP 115/70
[2019-12-14] MEDS: TRAZODONE 100MG TABLET PO PRN (21:24)
[2019-12-15 01:31] VITALS: BP 152/90
[2019-12-15] MEDS: ALBUTEROL-IPRATROPIUM MDI INH INH SCH ×4 (04:32→21:16)
[2019-12-15 05:51] LABS: CHLORIDE 96 mmol/L (98-107)
[2019-12-15 05:58] LABS: ALANINE AMINOTRANSFERASE 48 U/L (12-78); ALBUMIN 2.4 g/dL (3.4-5.0); ALKALINE PHOSPHATASE 59 U/L (45-117); ANION GAP 5 mmol/L (5-15); BILIRUBIN,TOTAL 0.4 mg/dL (0.2-1.0); CALCIUM 8.5 mg/dL (8.5-10.1); CREATININE 0.61 mg/dL (0.7-1.3); TOTAL PROTEIN 5.7 g/dL (6.4-8.2)
[2019-12-15] MEDS: DOXYCYCLINE 100 MG in DEXTROSE 5% 250 ML IV SCH ×2 (06:00→17:34)
[2019-12-15 06:07] VITALS: BP 121/78
[2019-12-15] MEDS: METOPROLOL TARTRATE 25 MG TAB PO SCH ×2 (06:09→17:34)
[2019-12-15] MEDS: ONDANSETRON ODT 4 MG PO PRN ×3 (06:09→17:34)
[2019-12-15] MEDS: INSULIN LISPRO 100 UNITS/ML, PEN SQ-INSULIN SCH ×4 (07:00→19:34)
[2019-12-15 07:46] VITALS: BP 129/77
[2019-12-15] MEDS: TAMSULOSIN 0.4 MG CAP.ER.24H PO SCH (09:00)
[2019-12-15] MEDS: SENNA/DOCUSATE TABLET PO SCH (09:00)
[2019-12-15] MEDS: LACTOBACILLUS CHEW TABLET PO SCH ×3 (09:16→21:15)
[2019-12-15] MEDS: CEFTRIAXONE PMX 1GM/50ML 50 ML IV SCH (09:16)
[2019-12-15] MEDS: methylPREDNISolone SOD SUCC 40 MG/ML IVPush SCH ×2 (09:16→21:16)
[2019-12-15] MEDS: FOLIC ACID 1 MG TABLET PO SCH (09:16)
[2019-12-15] MEDS: THIAMINE 100MG TABLET PO SCH ×2 (09:16→21:16)
[2019-12-15] MEDS: APIXABAN 2.5 MG TABLET PO SCH ×2 (09:16→21:16)
[2019-12-15] MEDS: MULTIVITAMINS/MINERALS TABLET PO SCH (09:16)
[2019-12-15] MEDS: FLUTICASONE/VILANTEROL 200-25MCG/INH INH SCH (09:21)
[2019-12-15] MEDS: ACETAMINOPHEN 325 MG TABLET PO PRN (09:21)
[2019-12-15 13:42] VITALS: BP 126/65
[2019-12-15] MEDS: NICOTINE 21 MG/24 HR PATCH.TD24 TD SCH (17:34)
[2019-12-15 18:59] VITALS: BP 138/78
[2019-12-15] MEDS: TRAZODONE 100MG TABLET PO PRN (21:17)
[2019-12-16] VITALS (7 sets, daily range): BP systolic 105–154; BP diastolic 62–73
[2019-12-16 04:59] LABS: MEAN CORPUSCULAR HEMOGLOBIN 30.4 pg (27.5-34.5); MEAN CORPUSCULAR VOLUME 94.8 fL (81-97); MEAN PLATELET VOLUME 8.9 fL (7.4-10.4); PLATELET COUNT 193 x10^3/uL (130-400); RED BLOOD COUNT 3.36 x10^6/uL (4.38-5.82); RED CELL DISTRIBUTION WIDTH 18.1 % (9.4-14.8)
[2019-12-16 05:01] LABS: ANION GAP 4 mmol/L (5-15); CALCIUM 8.9 mg/dL (8.5-10.1); CHLORIDE 95 mmol/L (98-107)
[2019-12-16 05:52] LABS: BASOPHILS # (AUTO) 0.04 x10^3/uL (0-0.1); BASOPHILS % (AUTO) 0 % (0-1); EOSINOPHILS # (AUTO) 0.02 x10^3/uL (0-0.4); EOSINOPHILS % (AUTO) 0 % (1-7); LYMPHOCYTES # (AUTO) 0.36 x10^3/uL (1-3.4); LYMPHOCYTES % (AUTO) 3 % (22-44); MD SCAN; MONOCYTES % (AUTO) 2 % (2-9); NEUTROPHILS # (AUTO) 12.17 x10^3/uL (1.8-6.8); NEUTROPHILS % (AUTO) 95 % (42-75)
[2019-12-16] MEDS: ALBUTEROL-IPRATROPIUM MDI INH INH SCH ×4 (06:02→23:00)
[2019-12-16] MEDS: METOPROLOL TARTRATE 25 MG TAB PO SCH ×2 (06:03→17:37)
[2019-12-16] MEDS: ONDANSETRON ODT 4 MG PO PRN ×3 (06:03→20:58)
[2019-12-16] MEDS: DOXYCYCLINE 100 MG in DEXTROSE 5% 250 ML IV SCH ×2 (06:03→17:38)
[2019-12-16] MEDS: INSULIN LISPRO 100 UNITS/ML, PEN SQ-INSULIN SCH ×4 (07:22→19:47)
[2019-12-16] MEDS: FLUTICASONE/VILANTEROL 200-25MCG/INH INH SCH (07:50)
[2019-12-16] MEDS: THIAMINE 100MG TABLET PO SCH ×2 (07:51→20:58)
[2019-12-16] MEDS: methylPREDNISolone SOD SUCC 40 MG/ML IVPush SCH ×2 (07:51→20:58)
[2019-12-16] MEDS: MULTIVITAMINS/MINERALS TABLET PO SCH (07:51)
[2019-12-16] MEDS: TAMSULOSIN 0.4 MG CAP.ER.24H PO SCH ×2 (07:51→07:52)
[2019-12-16] MEDS: APIXABAN 2.5 MG TABLET PO SCH ×2 (07:51→20:58)
[2019-12-16] MEDS: LACTOBACILLUS CHEW TABLET PO SCH ×3 (07:51→20:57)
[2019-12-16] MEDS: SENNA/DOCUSATE TABLET PO SCH ×2 (07:52→07:53)
[2019-12-16] MEDS: FOLIC ACID 1 MG TABLET PO SCH (07:52)
[2019-12-16] MEDS: CEFTRIAXONE PMX 1GM/50ML 50 ML IV SCH (10:23)
[2019-12-16] MEDS: NICOTINE 21 MG/24 HR PATCH.TD24 TD SCH (17:38)
[2019-12-16] MEDS: TRAZODONE 100MG TABLET PO PRN (20:58)
[2019-12-17 02:06] VITALS: BP 114/62
[2019-12-17] MEDS: ONDANSETRON ODT 4 MG PO PRN ×2 (05:31→21:11)
[2019-12-17] MEDS: METOPROLOL TARTRATE 25 MG TAB PO SCH ×2 (05:31→17:31)
[2019-12-17] MEDS: ALBUTEROL-IPRATROPIUM MDI INH INH SCH ×4 (05:31→23:00)
[2019-12-17] MEDS: DOXYCYCLINE 100 MG in DEXTROSE 5% 250 ML IV SCH ×2 (05:31→17:30)
[2019-12-17 05:32] LABS: MEAN CORPUSCULAR HEMOGLOBIN 30.5 pg (27.5-34.5); MEAN CORPUSCULAR HGB CONC 32.3 g/dL (33.2-36.2); MEAN CORPUSCULAR VOLUME 94.5 fL (81-97); PLATELET COUNT 204 x10^3/uL (130-400); RED BLOOD COUNT 3.41 x10^6/uL (4.38-5.82); RED CELL DISTRIBUTION WIDTH 18.9 % (9.4-14.8)
[2019-12-17 05:39] LABS: ANION GAP 0 mmol/L (5-15); CALCIUM 8.8 mg/dL (8.5-10.1); CHLORIDE 97 mmol/L (98-107)
[2019-12-17 06:21] LABS: MD YES
[2019-12-17 06:23] LABS: LYMPH#(MANUAL) 0.25 x10^3/uL (1-3.4); LYMPHS% (MANUAL) 2 % (22-44); METAMYELOCYTES# (MANUAL) 0.13 x10^3/uL (0-0); METAMYELOCYTES% (MANUAL) 1 % (0-1); MONOS#(MANUAL) 0.25 x10^3/uL (0.3-2.7); MONOS% (MANUAL) 2 % (2-9); SEG#(MANUAL) 11.88 x10^3/uL (1.8-6.8); SEGS% (MANUAL) 95 % (42-75)
[2019-12-17 06:24] LABS: <PLATELET ESTIMATE> ADEQUATE; <PLT MORPHOLOGY> NORMAL PLT MORPH; ANISOCYTOSIS 1+; HYPOCHROMIA 1+; OVALOCYTES 1+
[2019-12-17 07:01] VITALS: BP 114/65
[2019-12-17] MEDS: INSULIN LISPRO 100 UNITS/ML, PEN SQ-INSULIN SCH ×4 (07:57→20:58)
[2019-12-17] MEDS: FLUTICASONE/VILANTEROL 200-25MCG/INH INH SCH (08:00)
[2019-12-17] MEDS: THIAMINE 100MG TABLET PO SCH ×2 (08:00→21:11)
[2019-12-17] MEDS: methylPREDNISolone SOD SUCC 40 MG/ML IVPush SCH ×2 (08:00→21:11)
[2019-12-17] MEDS: FOLIC ACID 1 MG TABLET PO SCH (08:00)
[2019-12-17] MEDS: APIXABAN 2.5 MG TABLET PO SCH ×2 (08:00→21:11)
[2019-12-17] MEDS: MULTIVITAMINS/MINERALS TABLET PO SCH (08:00)
[2019-12-17] MEDS: TAMSULOSIN 0.4 MG CAP.ER.24H PO SCH (08:01)
[2019-12-17] MEDS: SENNA/DOCUSATE TABLET PO SCH (08:01)
[2019-12-17] MEDS: LACTOBACILLUS CHEW TABLET PO SCH ×4 (08:22→21:11)
[2019-12-17] MEDS: CEFTRIAXONE PMX 1GM/50ML 50 ML IV SCH (11:04)
[2019-12-17 13:18] VITALS: BP 117/71
[2019-12-17] MEDS: NICOTINE 21 MG/24 HR PATCH.TD24 TD SCH (17:27)
[2019-12-17 19:35] VITALS: BP 124/67
[2019-12-17] MEDS: TRAZODONE 100MG TABLET PO PRN (21:11)
[2019-12-18 00:25] VITALS: BP 126/73
[2019-12-18] MEDS: ALBUTEROL-IPRATROPIUM MDI INH INH SCH ×2 (05:00→10:59)
[2019-12-18 05:03] LABS: MEAN CORPUSCULAR HEMOGLOBIN 30.7 pg (27.5-34.5); MEAN CORPUSCULAR HGB CONC 32.5 g/dL (33.2-36.2); MEAN CORPUSCULAR VOLUME 94.7 fL (81-97); MEAN PLATELET VOLUME 9.2 fL (7.4-10.4); PLATELET COUNT 207 x10^3/uL (130-400); RED CELL DISTRIBUTION WIDTH 18.5 % (9.4-14.8)
[2019-12-18 05:07] LABS: ANION GAP 2 mmol/L (5-15); CALCIUM 8.7 mg/dL (8.5-10.1); CHLORIDE 96 mmol/L (98-107)
[2019-12-18 05:08] LABS: CREATININE 0.62 mg/dL (0.7-1.3)
[2019-12-18 05:50] LABS: BASOPHILS # (AUTO) 0.02 x10^3/uL (0-0.1); BASOPHILS % (AUTO) 0 % (0-1); EOSINOPHILS % (AUTO) 0 % (1-7); LYMPHOCYTES % (AUTO) 4 % (22-44); MD SCAN; MONOCYTES # (AUTO) 0.08 x10^3/uL (0.2-0.8); MONOCYTES % (AUTO) 1 % (2-9); NEUTROPHILS # (AUTO) 13.22 x10^3/uL (1.8-6.8); NEUTROPHILS % (AUTO) 96 % (42-75)
[2019-12-18] MEDS: DOXYCYCLINE 100 MG in DEXTROSE 5% 250 ML IV SCH (06:10)
[2019-12-18] MEDS: ONDANSETRON ODT 4 MG PO PRN (06:10)
[2019-12-18] MEDS: METOPROLOL TARTRATE 25 MG TAB PO SCH (06:10)
[2019-12-18 07:09] VITALS: BP 122/60
[2019-12-18] MEDS: INSULIN LISPRO 100 UNITS/ML, PEN SQ-INSULIN SCH ×2 (08:07→10:59)
[2019-12-18] MEDS: methylPREDNISolone SOD SUCC 40 MG/ML IVPush SCH (08:22)
[2019-12-18] MEDS: APIXABAN 2.5 MG TABLET PO SCH (08:22)
[2019-12-18] MEDS: SENNA/DOCUSATE TABLET PO SCH (08:22)
[2019-12-18] MEDS: MULTIVITAMINS/MINERALS TABLET PO SCH (08:22)
[2019-12-18] MEDS: FOLIC ACID 1 MG TABLET PO SCH (08:22)
[2019-12-18] MEDS: THIAMINE 100MG TABLET PO SCH (08:22)
[2019-12-18] MEDS: FLUTICASONE/VILANTEROL 200-25MCG/INH INH SCH (08:22)
[2019-12-18] MEDS: TAMSULOSIN 0.4 MG CAP.ER.24H PO SCH (08:23)
[2019-12-18] MEDS: LACTOBACILLUS CHEW TABLET PO SCH (09:00)
[2019-12-18] MEDS: CEFTRIAXONE PMX 1GM/50ML 50 ML IV SCH (10:59)
[2019-12-18] MEDS ORDERED: METH4TAB2 PO ×2 (11:59)
[2019-12-18 13:01] VITALS: BP 118/61
[2020-01-09] MEDS ORDERED: METO-93 PO (11:40)
[2020-01-09] MEDS ORDERED: TAMS-11 PO (11:40)
[2020-01-09] MEDS ORDERED: ONDA4TAB7 PO (11:40)
[2020-01-09] MEDS ORDERED: TRAZ-96 PO (11:40)
[2020-01-09] MEDS ORDERED: APIX2.5T PO (11:40)
== END 2019-12-18 15:05 | disposition home or self-care (01) | DRG 177 ==
LOC: ED 16:01 → EDIP 16:48 → ICU 18:22 → 4WST 12-09 17:29
PROVIDERS: ADMIT Hospitalist; ATTEND Hospitalist
PROC: BD11YZZ Fluoroscopy of Esophagus using Other Contrast (ICD-10-PCS; principal; 2019-12-13)
DX: J15.6 Pneumonia due to other Gram-negative bacteria (principal); J96.21 Acute and chronic respiratory failure with hypoxia; E43 Unspecified severe protein-calorie malnutrition; R65.10 Systemic inflammatory response syndrome (SIRS) of non-infectious origin without acute organ dysfunction; D68.69 Other thrombophilia; E46 Unspecified protein-calorie malnutrition; I48.20 Chronic atrial fibrillation, unspecified; Q21.1 Atrial septal defect; Z68.1 Body mass index [BMI] 19.9 or less, adult; I27.20 Pulmonary hypertension, unspecified; D63.8 Anemia in other chronic diseases classified elsewhere; F10.20 Alcohol dependence, uncomplicated; F17.210 Nicotine dependence, cigarettes, uncomplicated; I11.0 Hypertensive heart disease with heart failure; I50.9 Heart failure, unspecified; R73.9 Hyperglycemia, unspecified; J43.9 Emphysema, unspecified; M19.90 Unspecified osteoarthritis, unspecified site; G89.29 Other chronic pain; N40.0 Benign prostatic hyperplasia without lower urinary tract symptoms; R13.10 Dysphagia, unspecified; Z63.8 Other specified problems related to primary support group; Y95 Nosocomial condition; Z59.0 Homelessness; Z66 Do not resuscitate; Z79.01 Long term (current) use of anticoagulants; Z82.49 Family history of ischemic heart disease and other diseases of the circulatory system; Z87.01 Personal history of pneumonia (recurrent); Z91.19 Patient's noncompliance with other medical treatment and regimen; Z79.899 Other long term (current) drug therapy; Y90.9 Presence of alcohol in blood, level not specified; Z20.828 Contact with and (suspected) exposure to other viral communicable diseases
CPT/HCPCS: 36415; 71045; 74230; 80048; 80053; 82962; 83036; 83605; 85025; 87040; 87070; 87081; 87205; 93005; 96374; 99285; G0378; J0456; J0696; J2185; J7060; J7120; Q0162; J1160; J1815; J2920; J2930; J7030; J7050

== ENCOUNTER 2019-12-19 08:16 | Inpatient (IN) | payer MEDICARE, MEDICAID ==
[~2019-12-19] VITALS: Ht 177.8 cm; Wt 50.1 kg
[~2019-12-19 08:16] MED LIST changes: +ONDA4TAB7 PO
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
--- NOTE | 2019-12-19 08:52 | NUR ---
BEDSIDE REPORT TO Nancy KELLEY RN
[2019-12-19] MEDS ORDERED: SODIUM CHLORIDE FLUSH 10ML SYR IVF ONE (09:00)
[2019-12-19] MEDS ORDERED: ALBUTEROL/IPRATROPIUM 2.5MG/0.5MG, 3 ML NPPB ONE (09:00)
[2019-12-19] MEDS ORDERED: ALBUTEROL/IPRATROPIUM 2.5MG/0.5MG, 3 ML ONE (09:03)
--- NOTE | 2019-12-19 09:03 | NUR ---
PT MOVED TO ROOM 34
[2019-12-19 09:06] LABS: BASOPHILS # (AUTO) 0.27 x10^3/uL (0-0.1); BASOPHILS % (AUTO) 2 % (0-1); EOSINOPHILS # (AUTO) 0.02 x10^3/uL (0-0.4); EOSINOPHILS % (AUTO) 0 % (1-7); LYMPHOCYTES # (AUTO) 1.06 x10^3/uL (1-3.4); LYMPHOCYTES % (AUTO) 7 % (22-44); MD NO; MEAN CORPUSCULAR HEMOGLOBIN 30.1 pg (27.5-34.5); MEAN CORPUSCULAR HGB CONC 31.8 g/dL (33.2-36.2); MEAN CORPUSCULAR VOLUME 94.8 fL (81-97); MEAN PLATELET VOLUME 8.5 fL (7.4-10.4); MONOCYTES % (AUTO) 6 % (2-9); NEUTROPHILS # (AUTO) 13.05 x10^3/uL (1.8-6.8); NEUTROPHILS % (AUTO) 85 % (42-75); PLATELET COUNT 221 x10^3/uL (130-400); RED BLOOD COUNT 3.75 x10^6/uL (4.38-5.82); RED CELL DISTRIBUTION WIDTH 19.1 % (9.4-14.8)
[2019-12-19 09:15] LABS: ALANINE AMINOTRANSFERASE 61 U/L (12-78); ALBUMIN 2.9 g/dL (3.4-5.0); ANION GAP 4 mmol/L (5-15); CALCIUM 8.8 mg/dL (8.5-10.1); CHLORIDE 97 mmol/L (98-107); CREATININE 0.79 mg/dL (0.7-1.3)
[2019-12-19 09:19] LABS: ALKALINE PHOSPHATASE 65 U/L (45-117); BILIRUBIN,TOTAL 0.7 mg/dL (0.2-1.0); TOTAL PROTEIN 6.1 g/dL (6.4-8.2); TROPONIN I < 0.015 ng/mL (0.000-0.045)
--- NOTE | 2019-12-19 09:19 | NUR ---
ASSUMED CARE OF PT. NEB COMPLETE. PT TOLERATED WELL. MONITOR IN PLACE. 3P'S ADDRESSED. LIGHTS DIMMED PER PT REQUEST.
[2019-12-19] MEDS ORDERED: PIPERACILLIN/TAZO/PMX 3.375GM 50 ML IV ONE (09:45)
[2019-12-19] MEDS ORDERED: PIPERACILLIN/TAZO/PMX 3.375GM 50 ML ONE ×2 (09:57→14:29)
[2019-12-19] MEDS ORDERED: VANCOMYCIN 1,200 MG in SODIUM CHLORIDE 0.9% 250 ML IV ONE (10:00)
[2019-12-19] MEDS ORDERED: VANCOMYCIN PER PHARMACY MC PRN ×2 (10:00→14:30)
--- NOTE | 2019-12-19 11:06 | NUR ---
PT TO CT
--- NOTE | 2019-12-19 11:22 | NUR ---
TASK RN: PT BACK FROM IMAGING.
[2019-12-19] MEDS ORDERED: OMNIPAQUE 350 MG/ML, 100ML BOTTLE ONE (11:31)
--- NOTE | 2019-12-19 11:31 | NUR ---
TASK RN: UA SENT TO LAB. PT REATTACHED TO ALL MONITORS. CLEAN URINAL PLACED BEDSIDE. NADN. NO NEEDS REQUESTED AT THIS TIME.
--- NOTE | 2019-12-19 13:35 | NUR ---
Note roxanne in ED - 12/19/19 at 1401 by ANIBAL ENTERED PT'S RM TO FIND HIM AT THE END OF THE BED STANDING WITH MONITOR'S REMOVED. PT STATES NOBODY CAME WHEN HE CALLED. PT ASSISTED TO BSC, CLOTHING REMOVED, PT INCONTINENT OF STOOL AND UR
--- NOTE | 2019-12-19 13:35 | NUR ---
ENTERED PT'S RM TO FIND HIM AT THE END OF THE BED STANDING WITH MONITOR'S REMOVED. PT STATES NOBODY CAME WHEN HE CALLED. PT ASSISTED TO BSC, CLOTHING REMOVED, PT INCONTINENT OF STOOL AND URINE. PT CLEANED AND SETUP DIET TRAY AT BEDSIDE. EDUCATED PT ELECTROENCEPHALOGRAPHIC TECHNICIAN LIGHT. PT VERBALIZES UNDERSTANDING.
--- NOTE | 2019-12-19 14:25 | NUR ---
PT BTB. CONSUMED APPROX 50% OF MEAL. MONITOR IN PLACE.
[2019-12-19] MEDS ORDERED: GLUCAGON 1 MG IM PRN (14:30)
[2019-12-19] MEDS: NICOTINE 7 MG/24 HR PATCH.TD24 TD SCH (14:30)
[2019-12-19] MEDS ORDERED: LABETALOL 5MG/ML, 20ML IVPush PRN (14:30)
[2019-12-19] MEDS ORDERED: DEXTROSE 50%, 50ML SYRINGE IVPush PRN (14:30)
[2019-12-19] MEDS ORDERED: hydrALAzine 20 MG/ML, 1ML IVPush PRN (14:30)
[2019-12-19] MEDS: PIPERACILLIN/TAZO/PMX 3.375GM 50 ML IV SCH ×2 (14:30→20:14)
[2019-12-19] MEDS ORDERED: PROMETHAZINE 25 MG/ML, 1ML IM PRN (14:30)
[2019-12-19] MEDS ORDERED: DEXTROSE 4 GM TAB.CHEW PO PRN (14:30)
[2019-12-19 14:42] LABS: HCT (SEDRATE) 37.3 % (39.2-51.8)
--- NOTE | 2019-12-19 15:24 | NUR ---
BREAK RN: PT SLEEPING. VSS. EVEN RISE AND FALL OF CHEST OBSERVED. CALL LIGHT IN REACH
[2019-12-19] MEDS: GUAIFENESIN 200 MG TABLET PO SCH ×2 (16:00→20:14)
--- NOTE | 2019-12-19 16:02 | NUR ---
PLACED O2 SAT DROPPED TO 82%. PUT HIS NC BACK ON AT 3 LITERS. O2 SAT NOW 95%
--- NOTE | 2019-12-19 17:36 | NUR ---
PT ASSIST TO BSC. UA OBTAINED AND SENT TO LAB. PT PLACED IN HOSPITAL BED. AWAITING ROOM FOR ADMIT. MONITOR IN PLACE.
[2019-12-19] MEDS: METOPROLOL TARTRATE 25 MG TAB PO SCH (17:52)
[2019-12-19 18:31] VITALS: BP 114/60
[2019-12-19] MEDS ORDERED: PHARMACOKINETIC MONITORING MC PRN (19:00)
[2019-12-19] MEDS ORDERED: PHARMACOKINETIC CONSULTATION MC ONE (19:00)
[2019-12-19 20:00] VITALS: BP 114/66
[2019-12-19] MEDS: DOXYCYCLINE 100MG TABLET PO SCH (20:14)
[2019-12-19] MEDS: APIXABAN 2.5 MG TABLET PO SCH (20:44)
[2019-12-19] MEDS: SODIUM CHLORIDE FLUSH 10ML SYR IVF SCH (20:45)
[2019-12-20] MEDS ORDERED: ALBUTEROL-IPRATROPIUM MDI INH INH PRN (00:30)
[2019-12-20] MEDS: PIPERACILLIN/TAZO/PMX 3.375GM 50 ML IV SCH ×3 (02:37→16:25)
[2019-12-20 03:03] VITALS: BP 117/78
[2019-12-20] MEDS: METOPROLOL TARTRATE 25 MG TAB PO SCH ×2 (04:14→17:25)
[2019-12-20] MEDS: GUAIFENESIN 200 MG TABLET PO SCH ×4 (04:15→19:51)
[2019-12-20 05:28] LABS: BASOPHILS # (AUTO) 0.17 x10^3/uL (0-0.1); BASOPHILS % (AUTO) 2 % (0-1); EOSINOPHILS # (AUTO) 0.08 x10^3/uL (0-0.4); EOSINOPHILS % (AUTO) 1 % (1-7); LYMPHOCYTES # (AUTO) 0.75 x10^3/uL (1-3.4); LYMPHOCYTES % (AUTO) 8 % (22-44); MD NO; MEAN CORPUSCULAR HEMOGLOBIN 30.7 pg (27.5-34.5); MEAN CORPUSCULAR HGB CONC 32.2 g/dL (33.2-36.2); MEAN CORPUSCULAR VOLUME 95.4 fL (81-97); MEAN PLATELET VOLUME 8.7 fL (7.4-10.4); MONOCYTES # (AUTO) 0.58 x10^3/uL (0.2-0.8); MONOCYTES % (AUTO) 6 % (2-9); NEUTROPHILS # (AUTO) 7.82 x10^3/uL (1.8-6.8); NEUTROPHILS % (AUTO) 83 % (42-75); PLATELET COUNT 176 x10^3/uL (130-400); RED BLOOD COUNT 3.74 x10^6/uL (4.38-5.82)
[2019-12-20 05:31] LABS: CALCIUM 8.2 mg/dL (8.5-10.1); CHLORIDE 96 mmol/L (98-107)
[2019-12-20 05:37] LABS: ALANINE AMINOTRANSFERASE 58 U/L (12-78); ALBUMIN 2.4 g/dL (3.4-5.0); ALKALINE PHOSPHATASE 70 U/L (45-117); ANION GAP 5 mmol/L (5-15); BILIRUBIN,TOTAL 0.9 mg/dL (0.2-1.0); CREATININE 0.73 mg/dL (0.7-1.3); TOTAL PROTEIN 5.4 g/dL (6.4-8.2)
[2019-12-20] MEDS: TAMSULOSIN 0.4 MG CAP.ER.24H PO SCH (09:00)
[2019-12-20] MEDS ORDERED: FLUTICASONE/VILANTEROL 100-25MCG/INH INH SCH (09:00)
[2019-12-20] MEDS: DOXYCYCLINE 100MG TABLET PO SCH (09:00)
[2019-12-20] MEDS: SODIUM CHLORIDE FLUSH 10ML SYR IVF SCH ×2 (09:00→19:57)
[2019-12-20] MEDS: APIXABAN 2.5 MG TABLET PO SCH ×2 (09:00→19:51)
[2019-12-20] MEDS: MULTIVITAMINS/MINERALS TABLET PO SCH (09:00)
[2019-12-20] MEDS ORDERED: VANCOMYCIN PMX 1GM/200ML 200 ML IVPB SCH (10:00)
[2019-12-20 10:34] VITALS: BP 114/59
[2019-12-20 12:43] VITALS: BP 116/55
[2019-12-20] MEDS: NICOTINE 7 MG/24 HR PATCH.TD24 TD SCH (16:25)
[2019-12-20] MEDS: ONDANSETRON 2MG/ML, 2ML IVPush PRN (17:25)
[2019-12-20 19:49] VITALS: BP 109/62
[2019-12-21 00:48] VITALS: BP 138/62
[2019-12-21] MEDS: TRAZODONE 100MG TABLET PO PRN ×2 (01:30→21:25)
[2019-12-21] MEDS: ACETAMINOPHEN 325 MG TABLET PO PRN ×2 (01:31→18:36)
[2019-12-21 05:20] VITALS: BP 99/77
[2019-12-21] MEDS: GUAIFENESIN 200 MG TABLET PO SCH ×4 (05:25→20:11)
[2019-12-21] MEDS: METOPROLOL TARTRATE 25 MG TAB PO SCH ×2 (05:25→17:09)
[2019-12-21 05:28] LABS: BASOPHILS # (AUTO) 0.04 x10^3/uL (0-0.1); BASOPHILS % (AUTO) 0 % (0-1); EOSINOPHILS # (AUTO) 0.13 x10^3/uL (0-0.4); EOSINOPHILS % (AUTO) 1 % (1-7); LYMPHOCYTES # (AUTO) 0.89 x10^3/uL (1-3.4); LYMPHOCYTES % (AUTO) 8 % (22-44); MD NO; MEAN CORPUSCULAR HEMOGLOBIN 31.1 pg (27.5-34.5); MEAN CORPUSCULAR HGB CONC 32.8 g/dL (33.2-36.2); MEAN CORPUSCULAR VOLUME 94.8 fL (81-97); MEAN PLATELET VOLUME 8.5 fL (7.4-10.4); MONOCYTES # (AUTO) 0.78 x10^3/uL (0.2-0.8); MONOCYTES % (AUTO) 7 % (2-9); NEUTROPHILS # (AUTO) 8.91 x10^3/uL (1.8-6.8); NEUTROPHILS % (AUTO) 83 % (42-75); PLATELET COUNT 180 x10^3/uL (130-400); RED BLOOD COUNT 3.46 x10^6/uL (4.38-5.82); RED CELL DISTRIBUTION WIDTH 19.2 % (9.4-14.8)
[2019-12-21] MEDS: ONDANSETRON 2MG/ML, 2ML IVPush PRN ×2 (05:29→11:18)
[2019-12-21 05:42] LABS: ANION GAP 2 mmol/L (5-15); CALCIUM 8.3 mg/dL (8.5-10.1); CHLORIDE 100 mmol/L (98-107)
[2019-12-21 05:45] LABS: CREATININE 0.58 mg/dL (0.7-1.3)
[2019-12-21 07:28] VITALS: BP 99/62
[2019-12-21] MEDS ORDERED: VANCOMYCIN PER PHARMACY MC PRN (08:00)
[2019-12-21] MEDS ORDERED: PHARMACOKINETIC CONSULTATION MC ONE (08:30)
[2019-12-21] MEDS ORDERED: PHARMACOKINETIC MONITORING MC PRN (08:30)
[2019-12-21] MEDS: PIPERACILLIN/TAZO/PMX 3.375GM 50 ML IV SCH ×3 (08:45→20:12)
[2019-12-21] MEDS: APIXABAN 2.5 MG TABLET PO SCH ×2 (08:45→20:12)
[2019-12-21] MEDS: TAMSULOSIN 0.4 MG CAP.ER.24H PO SCH (08:45)
[2019-12-21] MEDS: MULTIVITAMINS/MINERALS TABLET PO SCH (08:45)
[2019-12-21] MEDS ORDERED: ALBUTEROL/IPRATROPIUM 2.5MG/0.5MG, 3 ML NPPB PRN ×2 (08:56→08:57)
[2019-12-21] MEDS: BUDESONIDE 0.5 MG/2 ML INHA NPPB SCH ×2 (09:00→20:30)
[2019-12-21] MEDS: SODIUM CHLORIDE FLUSH 10ML SYR IVF SCH ×2 (09:03→20:12)
[2019-12-21] MEDS: DOXYCYCLINE 100 MG in DEXTROSE 5% 250 ML IV SCH ×2 (09:27→21:26)
[2019-12-21] MEDS: VANCOMYCIN PMX 1GM/200ML 200 ML IVPB SCH (11:18)
[2019-12-21] MEDS: NICOTINE 7 MG/24 HR PATCH.TD24 TD SCH (14:49)
[2019-12-21 16:50] VITALS: BP_SYST 108; BP_SYST 86; BP_DIAS 46; BP_DIAS 49
[2019-12-21] MEDS ORDERED: KETOROLAC 30 MG/1 ML IVPush ONE (19:30)
[2019-12-21 20:08] VITALS: BP 89/44
[2019-12-22 00:24] VITALS: BP 128/70
[2019-12-22] MEDS: PIPERACILLIN/TAZO/PMX 3.375GM 50 ML IV SCH ×4 (03:06→20:12)
[2019-12-22 06:12] VITALS: BP 104/56
[2019-12-22] MEDS: GUAIFENESIN 200 MG TABLET PO SCH ×4 (06:19→20:23)
[2019-12-22] MEDS: ONDANSETRON 2MG/ML, 2ML IVPush PRN ×2 (06:27→12:29)
[2019-12-22 06:44] LABS: BASOPHILS # (AUTO) 0.04 x10^3/uL (0-0.1); BASOPHILS % (AUTO) 0 % (0-1); EOSINOPHILS # (AUTO) 0.08 x10^3/uL (0-0.4); EOSINOPHILS % (AUTO) 1 % (1-7); LYMPHOCYTES # (AUTO) 0.91 x10^3/uL (1-3.4); LYMPHOCYTES % (AUTO) 10 % (22-44); MD NO; MEAN CORPUSCULAR HGB CONC 32.4 g/dL (33.2-36.2); MEAN CORPUSCULAR VOLUME 95.6 fL (81-97); MEAN PLATELET VOLUME 8.3 fL (7.4-10.4); MONOCYTES # (AUTO) 0.92 x10^3/uL (0.2-0.8); MONOCYTES % (AUTO) 10 % (2-9); NEUTROPHILS # (AUTO) 7.01 x10^3/uL (1.8-6.8); NEUTROPHILS % (AUTO) 78 % (42-75); PLATELET COUNT 155 x10^3/uL (130-400); RED BLOOD COUNT 3.21 x10^6/uL (4.38-5.82); RED CELL DISTRIBUTION WIDTH 19.5 % (9.4-14.8)
[2019-12-22] MEDS: SODIUM CHLORIDE FLUSH 10ML SYR IVF SCH ×2 (08:33→20:13)
[2019-12-22] MEDS: BUDESONIDE 0.5 MG/2 ML INHA NPPB SCH ×3 (09:00→19:42)
[2019-12-22] MEDS: TAMSULOSIN 0.4 MG CAP.ER.24H PO SCH (09:40)
[2019-12-22] MEDS: MULTIVITAMINS/MINERALS TABLET PO SCH (09:40)
[2019-12-22] MEDS: APIXABAN 2.5 MG TABLET PO SCH ×2 (09:40→20:23)
[2019-12-22] MEDS: VANCOMYCIN PMX 1GM/200ML 200 ML IVPB SCH (11:27)
[2019-12-22 12:13] VITALS: BP 94/53
[2019-12-22 12:26] VITALS: BP 113/54
[2019-12-22] MEDS: DOXYCYCLINE 100 MG in DEXTROSE 5% 250 ML IV SCH (12:29)
[2019-12-22] MEDS: NICOTINE 7 MG/24 HR PATCH.TD24 TD SCH (16:30)
[2019-12-22 19:49] VITALS: BP 110/58
[2019-12-22] MEDS: TRAZODONE 100MG TABLET PO PRN (20:27)
[2019-12-22] MEDS: ONDANSETRON ODT 4 MG PO PRN (21:47)
[2019-12-23] MEDS: DOXYCYCLINE 100 MG in DEXTROSE 5% 250 ML IV SCH ×2 (00:10→12:38)
[2019-12-23 00:48] VITALS: BP 114/59
[2019-12-23] MEDS: PIPERACILLIN/TAZO/PMX 3.375GM 50 ML IV SCH ×2 (01:56→08:57)
[2019-12-23] MEDS: VANCOMYCIN PMX 1GM/200ML 200 ML IVPB SCH (03:34)
[2019-12-23] MEDS: GUAIFENESIN 200 MG TABLET PO SCH ×4 (05:29→20:51)
[2019-12-23] MEDS: ONDANSETRON ODT 4 MG PO PRN ×3 (05:38→17:11)
[2019-12-23] MEDS: TAMSULOSIN 0.4 MG CAP.ER.24H PO SCH (08:57)
[2019-12-23] MEDS: APIXABAN 2.5 MG TABLET PO SCH ×2 (08:57→20:51)
[2019-12-23] MEDS: SODIUM CHLORIDE FLUSH 10ML SYR IVF SCH ×2 (08:57→21:13)
[2019-12-23] MEDS: MULTIVITAMINS/MINERALS TABLET PO SCH (08:57)
[2019-12-23] MEDS: BUDESONIDE 0.5 MG/2 ML INHA NPPB SCH ×2 (09:25→21:30)
[2019-12-23 09:44] VITALS: BP 92/51
[2019-12-23 12:58] VITALS: BP 94/50
[2019-12-23] MEDS: NICOTINE 7 MG/24 HR PATCH.TD24 TD SCH (17:11)
[2019-12-23] MEDS: PIPERACILLIN/TAZO/PMX 4.5GM 100 ML IV SCH ×2 (17:11→22:47)
[2019-12-23 20:37] VITALS: BP 110/49
[2019-12-23] MEDS: TRAZODONE 100MG TABLET PO PRN (20:51)
[2019-12-24] MEDS: DOXYCYCLINE 100 MG in DEXTROSE 5% 250 ML IV SCH ×2 (00:19→15:28)
[2019-12-24 01:46] VITALS: BP 138/78
[2019-12-24] MEDS: VANCOMYCIN PMX 1GM/200ML 200 ML IVPB SCH (03:35)
[2019-12-24] MEDS: PIPERACILLIN/TAZO/PMX 4.5GM 100 ML IV SCH ×3 (04:57→20:36)
[2019-12-24] MEDS: GUAIFENESIN 200 MG TABLET PO SCH ×4 (05:33→20:36)
[2019-12-24] MEDS: ONDANSETRON ODT 4 MG PO PRN ×4 (05:40→20:18)
[2019-12-24 07:07] VITALS: BP 96/51
[2019-12-24] MEDS: BUDESONIDE 0.5 MG/2 ML INHA NPPB SCH ×2 (09:00→20:38)
[2019-12-24] MEDS: APIXABAN 2.5 MG TABLET PO SCH ×2 (09:19→20:18)
[2019-12-24] MEDS: TAMSULOSIN 0.4 MG CAP.ER.24H PO SCH (09:19)
[2019-12-24] MEDS: SODIUM CHLORIDE FLUSH 10ML SYR IVF SCH ×2 (09:19→20:19)
[2019-12-24] MEDS: MULTIVITAMINS/MINERALS TABLET PO SCH (09:20)
[2019-12-24 12:44] VITALS: BP_SYST 119; BP_SYST 145; BP_DIAS 67
[2019-12-24] MEDS: NICOTINE 7 MG/24 HR PATCH.TD24 TD SCH (16:35)
[2019-12-24 19:01] VITALS: BP 120/69
[2019-12-24] MEDS: TRAZODONE 100MG TABLET PO PRN (20:18)
[2019-12-25 01:36] VITALS: BP 132/76
[2019-12-25] MEDS: PIPERACILLIN/TAZO/PMX 4.5GM 100 ML IV SCH ×2 (02:07→10:07)
[2019-12-25] MEDS: VANCOMYCIN PMX 1GM/200ML 200 ML IVPB SCH (03:59)
[2019-12-25 04:50] LABS: CREATININE 0.55 mg/dL (0.7-1.3)
[2019-12-25] MEDS: ONDANSETRON ODT 4 MG PO PRN (04:57)
[2019-12-25] MEDS: GUAIFENESIN 200 MG TABLET PO SCH ×2 (05:33→11:00)
[2019-12-25 06:44] VITALS: BP 145/69
[2019-12-25] MEDS: SODIUM CHLORIDE FLUSH 10ML SYR IVF SCH (08:21)
[2019-12-25] MEDS: TAMSULOSIN 0.4 MG CAP.ER.24H PO SCH (08:21)
[2019-12-25] MEDS: DOXYCYCLINE 100 MG in DEXTROSE 5% 250 ML IV SCH (08:21)
[2019-12-25] MEDS: APIXABAN 2.5 MG TABLET PO SCH (08:21)
[2019-12-25] MEDS: MULTIVITAMINS/MINERALS TABLET PO SCH (08:21)
[2019-12-25] MEDS ORDERED: LEVO750T6 PO ×2 (10:25)
[2019-12-25] MEDS ORDERED: TIOT18CA INH (10:25)
[2019-12-25] MEDS ORDERED: BUDE10.2 INH (10:25)
[2019-12-25] MEDS ORDERED: ALBU90AE INH (10:25)
[2019-12-25] MEDS ORDERED: VANCOMYCIN PMX 1GM/200ML 200 ML IVPB SCH (22:00)
[2020-01-09] MEDS ORDERED: TRAZ-96 PO (11:40)
[2020-01-09] MEDS ORDERED: ONDA4TAB7 PO (11:40)
[2020-01-09] MEDS ORDERED: APIX2.5T PO (11:40)
[2020-01-09] MEDS ORDERED: TAMS-11 PO (11:40)
[2020-01-09] MEDS ORDERED: METO-93 PO (11:40)
== END 2019-12-25 13:46 | disposition home or self-care (01) | DRG 177 ==
LOC: ED 09:04 → EDIP 11:57 → 3WST 18:24 → 4EST 12-20 11:58
PROVIDERS: ADMIT Internal Medicine; ATTEND Hospitalist
DX: J15.6 Pneumonia due to other Gram-negative bacteria (principal); E43 Unspecified severe protein-calorie malnutrition; J96.21 Acute and chronic respiratory failure with hypoxia; D68.69 Other thrombophilia; E87.3 Alkalosis; I48.20 Chronic atrial fibrillation, unspecified; J44.0 Chronic obstructive pulmonary disease with (acute) lower respiratory infection; Z68.1 Body mass index [BMI] 19.9 or less, adult; D64.9 Anemia, unspecified; I11.0 Hypertensive heart disease with heart failure; I27.20 Pulmonary hypertension, unspecified; I50.9 Heart failure, unspecified; Z59.0 Homelessness; N40.0 Benign prostatic hyperplasia without lower urinary tract symptoms; Z72.0 Tobacco use; Z78.9 Other specified health status; Z82.49 Family history of ischemic heart disease and other diseases of the circulatory system; Z91.14 Patient's other noncompliance with medication regimen; Z87.01 Personal history of pneumonia (recurrent); Z66 Do not resuscitate; Z20.828 Contact with and (suspected) exposure to other viral communicable diseases
CPT/HCPCS: 36415; 71045; 71275; 80048; 80053; 80202; 82565; 82962; 83605; 83880; 84145; 84484; 84520; 85025; 85379; 85651; 86140; 87040; 93005; 93306; 96365; 96375; G0378; J2405; J2543; J3370; J7060; J7626; Q0162; Q9967; J7050

== ENCOUNTER 2019-12-27 09:27 | Emergency (ER) | payer MEDICARE, MEDICAID ==
[~2019-12-27] VITALS: Ht 177.8 cm; Wt 50.0 kg
[~2019-12-27 09:27] MED LIST changes: +LEVO750T6 PO
[2019-12-27 09:39] VITALS: BP 130/80
--- NOTE | 2019-12-27 09:49 | NUR ---
VICKY RAZO FROM [employer]. PER PREVIOUS RN AND PT, RECENT ADMISSION FOR PNEUMONIA, NE'ED 2 DAYS AGO. PT WITH SOB ON EXERTION, FOUND IN LOW 80'S ON RA, WITH 40 RESP RATE. PT PLACED ON NC O2 AND NOW 98-100%. RESPIRATORY RATE SLOW AND STEADY UNTIL PT TRIES TO EXERT HIMSELF OR TALK AND EXTENDED PERIOD OF TIME, AT WHICH POINT PT RESP RATE ELEVATES TO MIN-20'S. NAD NOTED AT THIS TIME. PT REPORTS PAIN FROM CHRONIC BACK PAIN BUT NO NEW PAIN. SIDE RAILS UP, CALL LIGHT IN REACH. MONITORING IN PLACE. NC REMAINS FLOWING. ADDITIONAL BLANKET APPLIED.
[2019-12-27] MEDS ORDERED: SODIUM CHLORIDE FLUSH 10ML SYR IVF ONE (10:00)
--- NOTE | 2019-12-27 10:06 | NUR ---
Pt refusing labs, IV start. Pt educated on reason for orders. Pt verbalizes understanding, continues to refuse. Provider aware.
--- NOTE | 2019-12-27 10:23 | NUR ---
Call to throughput and machining and assembly supervisor to try and plan for home O2. No capability without semi-permanent residence. Provider aware.
--- NOTE | 2019-12-27 10:32 | NUR ---
Provider discussed orders with pt. Pt refuses labs with public works laborer as well.
[2019-12-27] MEDS ORDERED: methylPREDNISolone SOD SUCC 125 MG/2 ML ONE (10:33)
--- NOTE | 2019-12-27 10:38 | NUR ---
Pt dressed and pacing around room. Refuses to rest, replace O2.
--- NOTE | 2019-12-27 10:48 | NUR ---
Pt up, out of room. Talking to provider. Refuses to go back in room. "I gotta get out of this place, man" Signs AMA form per provider request AMA form provided by auditor in charge. Pt shown exit by ben SELLERS.
== END 2019-12-27 10:51 | disposition left against medical advice (07) ==
LOC: ED 09:55
DX: R55 Syncope and collapse (principal); J44.1 Chronic obstructive pulmonary disease with (acute) exacerbation; I11.0 Hypertensive heart disease with heart failure; I50.9 Heart failure, unspecified; I48.91 Unspecified atrial fibrillation; R09.02 Hypoxemia; F17.210 Nicotine dependence, cigarettes, uncomplicated
CPT/HCPCS: 71045; 93005; 99283

== ENCOUNTER 2020-02-01 00:09 | Emergency (ER) | payer MEDICARE, MEDICAID ==
[~2020-02-01] VITALS: Ht 177.8 cm; Wt 50.0 kg
[~2020-02-01 00:09] MED LIST changes: +METO-93 PO; +TRAZ-96 PO
[2020-02-01] MEDS ORDERED: ALBUTEROL SULFATE 2.5 MG/3 ML ONE ×2 (00:48→00:56)
[2020-02-01] MEDS ORDERED: ALBUTEROL SULFATE 2.5 MG/3 ML NPPB ONE (01:00)
--- NOTE | 2020-02-01 01:04 | NUR ---
PATIENT RECIEVED BREATHING TREATMENT. STATED THAT HE FEELS MUCH BETTER. PATIENT AIDED WITH REPOSITIONING. PATIENT STATED THAT HE WANTED TO TAKE A NAP.
[2020-02-01 02:07] VITALS: BP 118/68
== END 2020-02-01 02:10 | disposition home or self-care (01) ==
LOC: ED 01:00
DX: J44.1 Chronic obstructive pulmonary disease with (acute) exacerbation (principal); J96.12 Chronic respiratory failure with hypercapnia; I10 Essential (primary) hypertension; K21.9 Gastro-esophageal reflux disease without esophagitis; I48.91 Unspecified atrial fibrillation; G89.29 Other chronic pain; I11.0 Hypertensive heart disease with heart failure; I50.9 Heart failure, unspecified; F17.200 Nicotine dependence, unspecified, uncomplicated
CPT/HCPCS: 71045; 93005; 94640; 99283; J7512; J7613

== ENCOUNTER 2020-02-12 20:29 | Inpatient (IN) | payer MEDICARE, MEDICAID ==
[~2020-02-12] VITALS: Ht 175.3 cm; Wt 54.0 kg
[2020-02-12] MEDS: APIXABAN 2.5 MG TABLET PO SCH (01:30)
[2020-02-12] MEDS ORDERED: ALBUTEROL/IPRATROPIUM 2.5MG/0.5MG, 3 ML ONE ×2 (20:57→21:09)
[2020-02-12] MEDS ORDERED: MAGNESIUM SULFATE 1 GM in DEXTROSE 5% 100 ML IV ONE (21:00)
[2020-02-12] MEDS ORDERED: ALBUTEROL/IPRATROPIUM 2.5MG/0.5MG, 3 ML NPPB ONE (21:00)
[2020-02-12] MEDS ORDERED: MAGNESIUM SULFATE/D5W 100 ML IV ONE (21:02)
[2020-02-12 21:19] LABS: MD YES; MEAN CORPUSCULAR HEMOGLOBIN 29.6 pg (27.5-34.5); MEAN CORPUSCULAR HGB CONC 31.5 g/dL (33.2-36.2); MEAN CORPUSCULAR VOLUME 93.7 fL (81-97); MEAN PLATELET VOLUME 8.5 fL (7.4-10.4); PLATELET COUNT 293 x10^3/uL (130-400); RED BLOOD COUNT 3.51 x10^6/uL (4.38-5.82); RED CELL DISTRIBUTION WIDTH 19.5 % (9.4-14.8)
--- NOTE | 2020-02-12 21:21 | NUR ---
SPOKE WITH MD REGARDING MAG DRIP, INCREASE RATE TO 100ML/HR FOR RESPIRATORY PATIENT. WILL NOT ADMINISTER OVER 4HRS.
--- NOTE | 2020-02-12 21:21 | NUR ---
PATIENT'S BREATHING HAS IMPROVED WITH SECOND BREATHING TREATMENT. WILL CONTINUE TO MONITOR.
[2020-02-12 21:27] LABS: ALANINE AMINOTRANSFERASE 18 U/L (12-78); ALBUMIN 3.1 g/dL (3.4-5.0); ANION GAP 5 mmol/L (5-15); CALCIUM 8.2 mg/dL (8.5-10.1); CHLORIDE 100 mmol/L (98-107); CREATININE 0.79 mg/dL (0.7-1.3)
[2020-02-12 21:32] LABS: ALKALINE PHOSPHATASE 72 U/L (45-117); BILIRUBIN,TOTAL 0.3 mg/dL (0.2-1.0); TOTAL PROTEIN 6.7 g/dL (6.4-8.2); TROPONIN I < 0.015 ng/mL (0.000-0.045)
--- NOTE | 2020-02-12 21:55 | NUR ---
RESPIRATORY ADVISED TO START PATIENT ON HIGH FLOW NASAL CANNULA, EXPLAINED TO RT THAT PATIENT WAS A MOUTH BREATHING, PATIENT MAY NOT IMPROVE WITH NASAL CANNULA THERAPY.
[2020-02-12 21:57] LABS: LYMPH#(MANUAL) 1.02 x10^3/uL (1-3.4); LYMPHS% (MANUAL) 11 % (22-44); MONOS#(MANUAL) 0.56 x10^3/uL (0.3-2.7); MONOS% (MANUAL) 6 % (2-9); SEG#(MANUAL) 7.72 x10^3/uL (1.8-6.8); SEGS% (MANUAL) 83 % (42-75)
[2020-02-12 21:59] LABS: ANISOCYTOSIS 1+
[2020-02-12 22:00] LABS: <PLATELET ESTIMATE> ADEQUATE; <PLT MORPHOLOGY> NORMAL PLT MORPH; OVALOCYTES 1+; PMNS WITH VACUOLES 1+
[2020-02-12] MEDS ORDERED: SODIUM CHLORIDE FLUSH 10ML SYR IVF ONE (22:00)
[2020-02-12] MEDS ORDERED: ALBUTEROL SULFATE 2.5MG/0.5ML ONE (22:08)
[2020-02-12] MEDS ORDERED: ALBUTEROL SULFATE 2.5 MG/3 ML ONE (22:08)
--- NOTE | 2020-02-12 22:47 | NUR ---
PATIENT IN ROOM, NOT TOLERATING HIGH FLOW NASAL CANNULA. PATIENT HAD TAKEN NASAL CANNULA OFF AND WAS SITTING AT THE FOOT OF THE BED. THE PATIENT STATED THAT HE TOLD RESPIRATORY THAT HE WOULD NOT TOLERATE THE HIGH FLOW WITH NO RESPONSE. PUSLE OX AT 75% ON RA, ATTEMPTED TO RECOVER PATIENT WITH 4LNC. UNSUCCESSFUL ATTEMPT, PATIENT IS NOW IN DISTRESS. CALLED RESPIRATORY AT BEDSIDE, PATIENT IS NOW ON BIPAP AND TOLERATING WELL. PATIENT HAS FULLY RECOVERED, OXYGENATION STATUS AT 96% ON BIPAP.
--- NOTE | 2020-02-12 23:02 | NUR ---
PATIENT STATED THAT HE FELT IF HIS BREATHING HAS IMPROVED. PATIENT'S COLOR HAS RETURNED, AND WORK OF BREATHING IS UNLABORED AT THIS TIME ON BIPAP. PATIENT TOLERATING BIPAP WELL. PATIENT USED URINAL WITHOUT COMPLICATIONS, PLACED IN HOSPITAL GOWN. TOLERATING INTERVENTIONS WELL. PROVDER UPDATED ON PATIENT'S CURRENT STATUS. WILL CONTINUE TO MONITOR. CALL LIGHT WITHIN REACH, BED IN LOWEST LOCKED POSITION.
--- NOTE | 2020-02-12 23:13 | NUR ---
SPOKE WITH ADMITTING MD REGARDING PATIENTS STATUS. MD AT BEDSIDE WITH PATIENT FOR ADMISSION EVALUATION
[2020-02-12] MEDS ORDERED: hydrALAzine 20 MG/ML, 1ML IVPush PRN (23:30)
[2020-02-12] MEDS ORDERED: morphine SULFATE 10 MG/ML, 1ML IVPush PRN (23:30)
[2020-02-12] MEDS ORDERED: ACETAMINOPHEN 325 MG TABLET PO PRN (23:30)
[2020-02-12] MEDS ORDERED: THIAMINE 200 MG in SODIUM CHLORIDE 0.9% 50 ML IV ONE (23:30)
--- NOTE | 2020-02-12 23:44 | NUR ---
REPORT GIVEN TO ADMISSION NURSE. NO FURTHER QUESTIONS. PATIENT WITH BE TRANSPORTED WITH RN AND TECH.
--- NOTE | 2020-02-13 00:11 | NUR ---
PATIENT TAKEN TO ICU TOLERATED WELL. BEDSIDE HANDOFF GIVEN TO VERITO AHMADI
[2020-02-13] MEDS ORDERED: APIXABAN 5 MG TABLET ONE (00:39)
[2020-02-13] MEDS: methylPREDNISolone SOD SUCC 125 MG/2 ML IVPush SCH ×4 (01:23→17:50)
[2020-02-13 01:28] VITALS: BP 132/78
[2020-02-13] MEDS: ALBUTEROL/IPRATROPIUM 2.5MG/0.5MG, 3 ML NPPB SCH ×2 (02:11→07:00)
[2020-02-13 04:35] VITALS: BP 124/64
[2020-02-13 05:25] LABS: ANION GAP 5 mmol/L (5-15); CALCIUM 8.2 mg/dL (8.5-10.1); CHLORIDE 100 mmol/L (98-107); CREATININE 0.74 mg/dL (0.7-1.3)
[2020-02-13 05:28] LABS: MEAN CORPUSCULAR HEMOGLOBIN 29.7 pg (27.5-34.5); MEAN CORPUSCULAR HGB CONC 31.6 g/dL (33.2-36.2); MEAN CORPUSCULAR VOLUME 93.9 fL (81-97); MEAN PLATELET VOLUME 8.5 fL (7.4-10.4); PLATELET COUNT 269 x10^3/uL (130-400); RED BLOOD COUNT 3.69 x10^6/uL (4.38-5.82)
[2020-02-13 05:56] LABS: MD YES
[2020-02-13 06:04] LABS: LYMPH#(MANUAL) 0.76 x10^3/uL (1-3.4); LYMPHS% (MANUAL) 3 % (22-44); MONOS#(MANUAL) 1.51 x10^3/uL (0.3-2.7); MONOS% (MANUAL) 6 % (2-9); SEG#(MANUAL) 22.93 x10^3/uL (1.8-6.8); SEGS% (MANUAL) 91 % (42-75)
[2020-02-13 06:05] LABS: ANISOCYTOSIS 1+; OVALOCYTES 1+; PMNS WITH VACUOLES 1+
[2020-02-13 06:06] LABS: <PLATELET ESTIMATE> ADEQUATE; <PLT MORPHOLOGY> NORMAL PLT MORPH
[2020-02-13] MEDS: MULTIVITAMINS/MINERALS TABLET PO SCH (08:40)
[2020-02-13] MEDS: METOPROLOL SUCCINATE 50 MG TAB.ER.24H PO SCH (08:40)
[2020-02-13] MEDS: APIXABAN 2.5 MG TABLET PO SCH ×2 (08:40→20:48)
[2020-02-13] MEDS: SENNA/DOCUSATE TABLET PO SCH (08:41)
[2020-02-13] MEDS: TAMSULOSIN 0.4 MG CAP.ER.24H PO SCH (08:41)
[2020-02-13] MEDS: ALBUTEROL-IPRATROPIUM MDI INH INH SCH ×4 (11:14→20:48)
[2020-02-13] MEDS: TRAZODONE 50MG TABLET PO SCH (20:48)
[2020-02-14] MEDS: methylPREDNISolone SOD SUCC 125 MG/2 ML IVPush SCH ×4 (01:25→18:14)
[2020-02-14] MEDS: ALBUTEROL-IPRATROPIUM MDI INH INH SCH ×5 (03:23→20:48)
[2020-02-14] MEDS: SENNA/DOCUSATE TABLET PO SCH (08:10)
[2020-02-14] MEDS: TAMSULOSIN 0.4 MG CAP.ER.24H PO SCH (08:11)
[2020-02-14] MEDS: APIXABAN 2.5 MG TABLET PO SCH ×2 (08:11→20:47)
[2020-02-14] MEDS: MULTIVITAMINS/MINERALS TABLET PO SCH (08:11)
[2020-02-14] MEDS: METOPROLOL SUCCINATE 50 MG TAB.ER.24H PO SCH (08:13)
[2020-02-14] MEDS: ONDANSETRON 2MG/ML, 2ML IVPush PRN (08:14)
[2020-02-14 15:07] VITALS: BP 128/62
[2020-02-14 20:22] VITALS: BP 127/69
[2020-02-14] MEDS: TRAZODONE 50MG TABLET PO SCH (20:47)
[2020-02-15] MEDS: ALBUTEROL-IPRATROPIUM MDI INH INH SCH ×6 (00:16→21:10)
[2020-02-15] MEDS: LORazepam 2 MG/ML, 1ML IVPush PRN (00:16)
[2020-02-15] MEDS: methylPREDNISolone SOD SUCC 125 MG/2 ML IVPush SCH ×3 (00:16→12:10)
[2020-02-15 00:36] VITALS: BP 121/72
[2020-02-15] MEDS: SENNA/DOCUSATE TABLET PO SCH (08:42)
[2020-02-15] MEDS: TAMSULOSIN 0.4 MG CAP.ER.24H PO SCH (08:42)
[2020-02-15] MEDS: APIXABAN 2.5 MG TABLET PO SCH ×2 (08:42→21:55)
[2020-02-15] MEDS: METOPROLOL SUCCINATE 50 MG TAB.ER.24H PO SCH (08:42)
[2020-02-15] MEDS: MULTIVITAMINS/MINERALS TABLET PO SCH (08:42)
[2020-02-15] MEDS: ONDANSETRON 2MG/ML, 2ML IVPush PRN ×2 (08:54→21:09)
[2020-02-15 12:45] VITALS: BP 135/72
[2020-02-15] MEDS ORDERED: LORazepam 0.5MG TABLET PO PRN (17:30)
[2020-02-15 19:08] VITALS: BP 112/63
[2020-02-15] MEDS: TRAZODONE 50MG TABLET PO SCH (21:55)
[2020-02-16 01:34] VITALS: BP 126/78
[2020-02-16] MEDS: LORazepam 2 MG/ML, 1ML IVPush PRN (01:45)
[2020-02-16] MEDS: ALBUTEROL-IPRATROPIUM MDI INH INH SCH ×6 (04:00→11:37)
[2020-02-16] MEDS ORDERED: methylPREDNISolone SOD SUCC 125 MG/2 ML IVPush SCH ×2 (06:00→23:30)
[2020-02-16 08:00] VITALS: BP 134/87
[2020-02-16] MEDS: TAMSULOSIN 0.4 MG CAP.ER.24H PO SCH ×2 (09:00→09:09)
[2020-02-16] MEDS: SENNA/DOCUSATE TABLET PO SCH (09:00)
[2020-02-16] MEDS: MULTIVITAMINS/MINERALS TABLET PO SCH ×2 (09:00→09:09)
[2020-02-16] MEDS: METOPROLOL SUCCINATE 50 MG TAB.ER.24H PO SCH ×2 (09:00→09:09)
[2020-02-16] MEDS: APIXABAN 2.5 MG TABLET PO SCH ×2 (09:00→09:09)
[2020-02-16] MEDS: ONDANSETRON 2MG/ML, 2ML IVPush PRN (09:19)
[2020-02-16] MEDS ORDERED: LORazepam 0.5MG TABLET PO SCH (10:00)
[2020-02-16] MEDS ORDERED: PRED10TA PO (11:55)
[2020-02-16] MEDS ORDERED: AMOX1TAB12 PO (11:55)
== END 2020-02-16 13:17 | disposition left against medical advice (07) | DRG 189 ==
LOC: ED 21:55 → EDIP 22:25 → ICU 02-13 00:04 → 4NW 02-14 15:00
PROVIDERS: ADMIT Family Medicine; ATTEND Internal Medicine
PROC: 5A09357 Assistance with Respiratory Ventilation, Less than 24 Consecutive Hours, Continuous Positive Airway Pressure (ICD-10-PCS; principal; 2020-02-12)
DX: J96.21 Acute and chronic respiratory failure with hypoxia (principal); J44.1 Chronic obstructive pulmonary disease with (acute) exacerbation; D68.69 Other thrombophilia; E44.0 Moderate protein-calorie malnutrition; I48.20 Chronic atrial fibrillation, unspecified; I31.3 Pericardial effusion (noninflammatory); Z68.1 Body mass index [BMI] 19.9 or less, adult; I50.32 Chronic diastolic (congestive) heart failure; Z20.828 Contact with and (suspected) exposure to other viral communicable diseases; D64.9 Anemia, unspecified; F10.10 Alcohol abuse, uncomplicated; F17.210 Nicotine dependence, cigarettes, uncomplicated; I07.1 Rheumatic tricuspid insufficiency; I27.29 Other secondary pulmonary hypertension; I50.82 Biventricular heart failure; N40.0 Benign prostatic hyperplasia without lower urinary tract symptoms; R13.10 Dysphagia, unspecified; D72.829 Elevated white blood cell count, unspecified; Z53.20 Procedure and treatment not carried out because of patient's decision for unspecified reasons; Z59.0 Homelessness; Z79.01 Long term (current) use of anticoagulants; Z82.49 Family history of ischemic heart disease and other diseases of the circulatory system; Z91.14 Patient's other noncompliance with medication regimen; Z99.81 Dependence on supplemental oxygen; Z87.01 Personal history of pneumonia (recurrent)
CPT/HCPCS: 36415; 36600; 71045; 80048; 80053; 82803; 83880; 84484; 85025; 87040; 87081; 93005; 94660; 96365; G0378; J2405; J3411; J2060; J2930; U0001-CS

== ENCOUNTER 2020-03-17 11:01 | Inpatient (IN) | payer MEDICARE, MEDICAID ==
[~2020-03-17] VITALS: Ht 177.8 cm; Wt 54.1 kg
[2020-03-17] MEDS ORDERED: SODIUM CHLORIDE FLUSH 10ML SYR IVF ONE (11:30)
[2020-03-17] MEDS ORDERED: VANCOMYCIN PER PHARMACY MC ONE (11:30)
[2020-03-17] MEDS ORDERED: PIPERACILLIN/TAZO/PMX 3.375GM 50 ML IVPB ONE (11:30)
[2020-03-17] MEDS ORDERED: DIPH,PERTUSS(ACELL),TET VAC/PF 0.5 ML IM-VACC ONE ×2 (11:30→11:54)
[2020-03-17] MEDS ORDERED: NEOSPORIN OINT. PKT 1 PACKET ONE ×2 (11:33→11:38)
[2020-03-17] MEDS ORDERED: PIPERACILLIN/TAZO/PMX 3.375GM 50 ML ONE (11:53)
[2020-03-17] MEDS ORDERED: VANCOMYCIN 1,200 MG in SODIUM CHLORIDE 0.9% 250 ML IV ONE (12:00)
--- NOTE | 2020-03-17 12:06 | NUR ---
TASK RN: LEFT ARM PIV PLACED FROM WHICH 1 SET OF BLOOD CULTURES WERE DRAWN
--- NOTE | 2020-03-17 12:08 | NUR ---
PIV PLACED BY TASK RN. LABS AND 2 SETS BLOOD CULTURES COLLECTED PRIOR TO ABX ADMIN. MEDS ADMIN PER NOV. TECH CLEANED AND DRESSED WOUND. PT RESTING ON GURNEY. WARM BLANKET PROVIDED.
[2020-03-17 12:14] LABS: MEAN CORPUSCULAR HEMOGLOBIN 29.1 pg (27.5-34.5); MEAN PLATELET VOLUME 7.9 fL (7.4-10.4); PLATELET COUNT 338 x10^3/uL (130-400); RED BLOOD COUNT 3.43 x10^6/uL (4.38-5.82); RED CELL DISTRIBUTION WIDTH 19.1 % (9.4-14.8)
[2020-03-17 12:16] LABS: ALBUMIN 2.7 g/dL (3.4-5.0); CALCIUM 8.4 mg/dL (8.5-10.1); CHLORIDE 103 mmol/L (98-107)
[2020-03-17 12:23] LABS: ALANINE AMINOTRANSFERASE 16 U/L (12-78); ALKALINE PHOSPHATASE 83 U/L (45-117); BILIRUBIN,TOTAL 0.5 mg/dL (0.2-1.0); CREATININE 0.62 mg/dL (0.7-1.3); TOTAL PROTEIN 6.1 g/dL (6.4-8.2)
[2020-03-17 12:26] LABS: ANION GAP 4 mmol/L (5-15)
[2020-03-17 12:32] LABS: BASOPHILS # (AUTO) 0.02 x10^3/uL (0-0.1); BASOPHILS % (AUTO) 0 % (0-1); EOSINOPHILS # (AUTO) 0.02 x10^3/uL (0-0.4); EOSINOPHILS % (AUTO) 0 % (1-7); LYMPHOCYTES # (AUTO) 0.68 x10^3/uL (1-3.4); LYMPHOCYTES % (AUTO) 6 % (22-44); MD SCAN; MONOCYTES % (AUTO) 5 % (2-9); NEUTROPHILS # (AUTO) 9.83 x10^3/uL (1.8-6.8); NEUTROPHILS % (AUTO) 89 % (42-75)
--- NOTE | 2020-03-17 12:43 | NUR ---
PT REFUSED TO WEAR CONTINUOUS MONITORING. " I KNOW WHAT MY OXYGEN LEVEL IS".
--- NOTE | 2020-03-17 12:47 | NUR ---
PT TO BE ADMITTED
[2020-03-17] MEDS ORDERED: SODIUM CHLORIDE FLUSH 10ML SYR IVF PRN (13:00)
--- NOTE | 2020-03-17 13:27 | NUR ---
REPORT GIVEN TO AMANDA SELLERS.
[2020-03-17 14:54] VITALS: BP 165/66
[2020-03-17] MEDS ORDERED: LACTATED RINGERS 1,000 ML IV SCH (15:00)
[2020-03-17] MEDS ORDERED: VANCOMYCIN PER PHARMACY MC PRN (15:00)
[2020-03-17] MEDS ORDERED: ENALAPRILAT 1.25 MG/ML, 2ML IVPush PRN (15:00)
[2020-03-17] MEDS ORDERED: POLYETHYLENE GLYCOL 17 GM PACKET PO PRN (15:00)
[2020-03-17] MEDS ORDERED: ONDANSETRON ODT 4 MG PO PRN (15:00)
[2020-03-17] MEDS ORDERED: ACETAMINOPHEN 325 MG TABLET PO PRN (15:00)
[2020-03-17] MEDS ORDERED: BISACODYL 10 MG SUPP PR PRN (15:00)
[2020-03-17] MEDS ORDERED: LABETALOL 5MG/ML, 20ML IVPush PRN (15:00)
[2020-03-17] MEDS ORDERED: HYDROcodone/APAP 5/325 TABLET PO PRN (15:00)
[2020-03-17] MEDS ORDERED: ONDANSETRON 2MG/ML, 2ML IVPush PRN (15:00)
[2020-03-17] MEDS ORDERED: MORPHINE SULFATE 4 MG/ML, 1ML IVPush PRN (15:00)
[2020-03-17] MEDS ORDERED: ALBUTEROL HFA 90 MCG/SPRAY INH PRN (15:00)
[2020-03-17] MEDS ORDERED: PHARMACOKINETIC MONITORING MC PRN (15:30)
[2020-03-17] MEDS: AMPICILLIN/SULBACTAM 3 GM in SODIUM CHLORIDE 0.9% 100 ML IV SCH ×2 (16:16→22:04)
[2020-03-17 20:19] VITALS: BP 96/59
[2020-03-17] MEDS: APIXABAN 2.5 MG TABLET PO SCH (20:31)
[2020-03-17] MEDS ORDERED: TEMPLATE NON-FORMULARY MED. (Budesonide/Formoterol Fumarate (Symbicort 160-4.5 Mcg Inhaler INH SCH (21:00)
[2020-03-17] MEDS ORDERED: TRAZODONE 50MG TABLET PO ONE (21:00)
[2020-03-18 02:04] VITALS: BP 113/68
[2020-03-18] MEDS: AMPICILLIN/SULBACTAM 3 GM in SODIUM CHLORIDE 0.9% 100 ML IV SCH ×4 (04:09→22:09)
[2020-03-18 06:28] LABS: BASOPHILS % (AUTO) 0 % (0-1); EOSINOPHILS % (AUTO) 0 % (1-7); LYMPHOCYTES # (AUTO) 0.95 x10^3/uL (1-3.4); LYMPHOCYTES % (AUTO) 9 % (22-44); MD NO; MEAN CORPUSCULAR HEMOGLOBIN 28.9 pg (27.5-34.5); MEAN CORPUSCULAR HGB CONC 30.9 g/dL (33.2-36.2); MEAN PLATELET VOLUME 8.3 fL (7.4-10.4); MONOCYTES % (AUTO) 7 % (2-9); NEUTROPHILS % (AUTO) 84 % (42-75); PLATELET COUNT 332 x10^3/uL (130-400); RED CELL DISTRIBUTION WIDTH 19.4 % (9.4-14.8)
[2020-03-18 06:42] LABS: CHLORIDE 102 mmol/L (98-107)
[2020-03-18 06:54] LABS: ANION GAP 6 mmol/L (5-15); CALCIUM 8.4 mg/dL (8.5-10.1); CREATININE 0.59 mg/dL (0.7-1.3)
[2020-03-18 07:47] VITALS: BP 110/57
[2020-03-18] MEDS ORDERED: COMBIVENT INH SCH (09:00)
[2020-03-18] MEDS: TIOTROPIUM BROMIDE 18 MCG/INH INH SCH (09:00)
[2020-03-18] MEDS: FLUTICASONE/VILANTEROL 100-25MCG/INH INH SCH (09:00)
[2020-03-18] MEDS: MULTIVITAMINS/MINERALS TABLET PO SCH (09:22)
[2020-03-18] MEDS: APIXABAN 2.5 MG TABLET PO SCH ×2 (09:22→21:22)
[2020-03-18] MEDS: TAMSULOSIN 0.4 MG CAP.ER.24H PO SCH (09:22)
[2020-03-18] MEDS: SENNA/DOCUSATE TABLET PO SCH (09:22)
[2020-03-18] MEDS: METOPROLOL SUCCINATE 50 MG TAB.ER.24H PO SCH (09:22)
[2020-03-18] MEDS: VANCOMYCIN PMX 1GM/200ML 200 ML IV SCH (12:47)
[2020-03-18 13:16] VITALS: BP 143/72
[2020-03-18 19:33] VITALS: BP 103/60
[2020-03-18] MEDS ORDERED: TRAZODONE 50MG TABLET PO ONE (21:30)
[2020-03-19 00:20] VITALS: BP 111/65
[2020-03-19] MEDS: AMPICILLIN/SULBACTAM 3 GM in SODIUM CHLORIDE 0.9% 100 ML IV SCH ×3 (04:16→10:25)
[2020-03-19 07:07] VITALS: BP 100/59
[2020-03-19] MEDS: SENNA/DOCUSATE TABLET PO SCH (09:00)
[2020-03-19] MEDS ORDERED: BUDE10.2 INH (09:53)
[2020-03-19] MEDS ORDERED: APIX2.5T PO (09:53)
[2020-03-19] MEDS ORDERED: AMOX1TAB12 PO (09:53)
[2020-03-19] MEDS ORDERED: ALBU90AE INH (09:53)
[2020-03-19] MEDS ORDERED: METO-93 PO (09:53)
[2020-03-19] MEDS: MULTIVITAMINS/MINERALS TABLET PO SCH (10:24)
[2020-03-19] MEDS: FLUTICASONE/VILANTEROL 100-25MCG/INH INH SCH (10:24)
[2020-03-19] MEDS: METOPROLOL SUCCINATE 50 MG TAB.ER.24H PO SCH (10:24)
[2020-03-19] MEDS: TIOTROPIUM BROMIDE 18 MCG/INH INH SCH (10:24)
[2020-03-19] MEDS: TAMSULOSIN 0.4 MG CAP.ER.24H PO SCH (10:24)
[2020-03-19] MEDS: APIXABAN 2.5 MG TABLET PO SCH (10:24)
[2020-03-19] MEDS: VANCOMYCIN PMX 1GM/200ML 200 ML IV SCH (13:00)
== END 2020-03-19 14:21 | disposition home or self-care (01) | DRG 602 ==
LOC: ED 12:20 → 3N 12:45
PROVIDERS: ADMIT Internal Medicine; ATTEND Hospitalist
DX: L03.115 Cellulitis of right lower limb (principal); E43 Unspecified severe protein-calorie malnutrition; I50.32 Chronic diastolic (congestive) heart failure; J96.10 Chronic respiratory failure, unspecified whether with hypoxia or hypercapnia; D68.69 Other thrombophilia; Z68.1 Body mass index [BMI] 19.9 or less, adult; J44.9 Chronic obstructive pulmonary disease, unspecified; I48.91 Unspecified atrial fibrillation; I27.20 Pulmonary hypertension, unspecified; N40.0 Benign prostatic hyperplasia without lower urinary tract symptoms; I10 Essential (primary) hypertension; D64.9 Anemia, unspecified; F10.20 Alcohol dependence, uncomplicated; K22.2 Esophageal obstruction; Z82.49 Family history of ischemic heart disease and other diseases of the circulatory system; Z91.14 Patient's other noncompliance with medication regimen; Z99.81 Dependence on supplemental oxygen; F17.210 Nicotine dependence, cigarettes, uncomplicated; Z79.899 Other long term (current) drug therapy
CPT/HCPCS: 36415; 80048; 80053; 83605; 85025; 87040; 87070; 87077; 87186; 87205; 90715; 93005; 96365; 99285; G0378; J0295; J2543; J3370; J7050; J7120; J7512

== ENCOUNTER 2020-03-21 17:25 | Emergency (ER) | payer MEDICARE, MEDICAID ==
[~2020-03-21] VITALS: Ht 177.8 cm; Wt 51.0 kg
[2020-03-21 17:30] VITALS: BP 98/52
--- NOTE | 2020-03-21 18:05 | NUR ---
PAULINA RN: PT WHEELED BACK FROM LOBBY AT THIS TIME. NO ACUTE DISTRESS NOTED AT THIS TIME.
--- NOTE | 2020-03-21 18:10 | NUR ---
PT CAME IN FOR RLE WOUND THAT "ISNT HEALING". PT REFUSING TO PUT ON GOWN OR BE CONNECTED TO MONITORING EQUIPMENT
[2020-03-21] MEDS ORDERED: SULFAMETH./TRIMETHOPRIM DS 800MG/160MG TABLET ONE (18:30)
[2020-03-21] MEDS ORDERED: SULFAMETH./TRIMETHOPRIM DS 800MG/160MG TABLET PO ONE (18:30)
== END 2020-03-21 18:49 | disposition home or self-care (01) ==
LOC: ED 18:30
DX: L03.115 Cellulitis of right lower limb (principal); K21.9 Gastro-esophageal reflux disease without esophagitis; J43.9 Emphysema, unspecified; I48.91 Unspecified atrial fibrillation; I11.0 Hypertensive heart disease with heart failure; I50.9 Heart failure, unspecified
CPT/HCPCS: 99283